=== PATIENT | female | born 1955 | race Caucasian/White ===

== ENCOUNTER → 2018-04-07 11:47 | Outpatient (CLI) | payer BC, SELFPAY ==
[2018-04-07 11:30] VITALS: BMI 38.9
--- NOTE | 2018-04-07 11:51 | RAD_ITS ---
STUDY: X-RAY CHEST REASON FOR EXAM: Female, 62 years old. Worsening shortness of breath TECHNIQUE: PA and lateral views of the chest. COMPARISON: None. FINDINGS: The lungs are clear and expanded. There is no demonstrated pleural abnormality. Normal size heart. Normal mediastinum and bev. Normal visualized pulmonary arteries. Normal visualized aortic arch and descending thoracic aorta. There are diffuse degenerative changes of the visualized thoracic spine. Normal visualized ribs, clavicles, and shoulders. There is no demonstrated abnormality of the visualized soft tissue structures of the upper abdomen. RAD/Chest PA and Lateral IMPRESSION: No acute pulmonary process Electronically Signed: Shalom Gottlieb MD at 12:22 EST , Service support ,
== END ==
PROVIDERS: Referring Provider Physician Assistant; Visit Provider Physician Assistant
DX: R05 Cough (principal); R06.09 Other forms of dyspnea
CPT/HCPCS: 71046

== ENCOUNTER 2019-10-02 17:14 | Inpatient (IN) | payer BC, MEDICARE, SELFPAY ==
[2018-04-07 11:30] VITALS: BMI 38.9
[2019-10-02] VITALS (13 sets, daily range): BP systolic 155–211; BP diastolic 80–125; PULSE 93–114; RESP 19–30; TEMP 36.4–37.6; O2SAT 60–97; BMI 44.0; BMI 43.9
--- NOTE | 2019-10-02 17:24 | EKG12_ITS ---
Test Reason : AM EKG Blood Pressure : / mmHG Vent. Rate : 069 BPM Atrial Rate : 069 BPM P-R Int : 160 ms QRS Dur : 094 ms QT Int : 454 ms P-R-T Axes : 085 025 046 degrees QTc Int : 486 ms Normal sinus rhythm Nonspecific T wave abnormality Prolonged QT Abnormal ECG When compared with ECG of 17-FEB-2001 09:02, Premature ventricular complexes are no longer Present Confirmed by LEXIE TORRES, ANA ([id number]), market editor AMEE ARGUELLO ([id number]) on 10/08/2019 3:49:45 PM Referred By: AMY Confirmed By:ANA OWEN MD
[2019-10-02 17:49] LABS: Absolute Lymphocyte Count 0.95 X10^3/uL (0.83-4.51); Absolute Neutrophil Count 6.7 X10^3/uL (2.0-7.7); Basophil# 0.05 X10^3/uL; Basophil% 0.6 % (0-1); Eosinophil# 0.06 X10^3/uL; Eosinophils% 0.7 % (0-5); Hematocrit 48.1 % (37-47); Hemoglobin 14.4 g/dL (12.0-15.0); Lymphocyte # 0.95 X10^3/ul (4.0); Lymphocyte % 11.1 % (19-41); Mean Corp Hgb Conc 29.9 g/dL (32-36); Mean Corpuscular Hgb 28.3 pg (27.0-32.0); Mean Corpuscular Volume 94.7 fL (81-99); Mean Platelet Vol. 11.2 fl (6.2-12.0); Monocyte# 0.74 X10^3/uL; Monocyte% 8.7 % (0-10); NRBC Flagged by Analyzer 0 % (0-5); Neutrophil # 6.72 X10^3/uL (2.7-7.7); Neutrophil % 78.7 % (47-70); Platelet Count 228 K/mm3 (150-450); RBC Distribution Width CV 16.2 % (11.6-14.6); RBC Distribution Width SD 55.7 fl (35.1-43.9); Red Blood Count 5.08 M/mm3 (4.2-5.4); White Blood Count 8.5 K/mm3 (4.4-11.0)
[2019-10-02 17:54] LABS: International Normalized Ratio 1.2; Prothrombin Time (Protime)PT. 14.4 SECONDS (11.7-14.9)
[2019-10-02 17:55] LABS: Partial Thromboplast Time 27.2 Seconds (24.1-36.2)
[2019-10-02] MEDS: Ipratropium/Albuterol Sulfate 3 ML AMPUL.NEB INHALATION (17:55)
[2019-10-02] MEDS: Albuterol 2.5 MG/3 ML VIAL.NEB. INHALATION ×3 (17:55→21:45)
[2019-10-02 18:00] LABS: ALB/GLOB Ratio 0.8 RATIO (0.9-2.4); AST(SGOT) 16 U/L (15-37); Alanine Aminotransfer ALT/SGPT 49 U/L (13-56); Alkaline Phosphatase 33 U/L (45-117); Anion Gap 0 (5-15); BUN 16 mg/dL (7-18); BUN/Creat Ratio 16.9 RATIO (10-20); Calcium,Total 8.3 mg/dL (8.5-10.1); Chloride 110 mmol/L (98-107); Creatinine, Serum 0.95 mg/dL (0.55-1.02); EST Glomerular Filtration Rate 63 mL/min (>60); Est Glom Filt Rate - Afr Amer 76 mL/min (>60); Globulin 3.7 g/dL (2.2-4.2); Glucose 124 mg/dL (74-106); Potassium 4.4 mmol/L (3.5-5.1); Protein, Total 6.7 g/dL (6.4-8.2); Sodium Level 144 mmol/L (136-145)
[2019-10-02 18:05] LABS: Base Excess 10 mmol/L (-2 to +2); Blood Gas Specimen Type ART; FI02 6; O2 Delivery Device Cannula; PO2 81 mmHG (75-100); SITE R Radial; SO2 94 % (95-99); Total Carbon Dioxide 38 mmol/L; pCO2 71.5 mmHg (35-45); pH 7.31 (7.35-7.45)
--- NOTE | 2019-10-02 18:05 | ED.VIS.GEN ---
History of Present Illness Chief Complaint: Shortness of Breath Informant: Patient, Family Onset: Days Context: Sudden Onset Timing: Continuous Quality: Shortness of breath, cough, swelling lower extremities Location: Respiratory Current Severity: Severe Maximum Severity: Severe Worsened by: Nothing per patient Relieved by: Nothing Associated Symptoms: No fever, chills, or exposure to ill family or friends Narrative: Patient is a 64-year-old woman who has not seen a physician in 15+ years. She is a smoker of 2 packs/day since the age of 13. She had her purchased Primatene Mist for her breathing. She denies fever or chills. She does complain of nasal congestion. She does report cough that is productive. She does report wheezing. She has had pedal edema and orthopnea for the past 3 weeks. She denies GI symptoms. Prior similar symptoms: No Recent Illness/Hospitalization: No - Past Medical History (1) Bronchitis Status: Acute (2) Reactive airway disease Status: Acute Past Medical History - Allergies and Home Meds Allergies/Adverse Reactions: Allergies No Known Allergies Allergy (Verified 10/02/19 17:14) Primary Care Physician: Damon Portillo MD [Primary Care Provider] - Surgical History: noncontributory Lives: Alone Smoking Status: Heavy Smoker (>10/day) Alcohol: None Drugs: None Review of Systems General: Reports: Malaise. Denies: Chills, Fever, Subjective, Sweats Eyes: Denies: Visual changes - bilaterally, Blurred Vision - bilaterally ENT: Reports: - - No loss in taste or smell. Denies: Bilateral ear pain, Rhinorrhea, Sore throat Cardiovascular: Reports: Palpitations. Denies: Chest pain, Heart racing Respiratory: Reports: Dyspnea, Cough, Sputum, Dyspnea on exertion, Orthopnea. Denies: Paroxysmal nocturnal dyspnea Gastrointestinal: Denies: Abdominal pain, Nausea, Vomiting, Diarrhea Genitourinary: Denies: Dysuria, Hematuria, Frequency Musculoskeletal: Reports: Swelling. Denies: Myalgias, Arthralgias, Neck pain, Back pain, Extremity Pain, -, - Skin: Denies: Rash, Wounds Neurological: Reports: Weakness. Denies: Headache, Parasthesia, Numbness Endocrine: Denies: Polyuria, Polydipsia Hematologic: Denies: Easy bruising, Easy bleeding Allergy: Denies: Uticaria, Swelling of the mouth, Swelling of the tongue Physical Exam Vital Signs/Narrative: Vital Signs Temp Pulse Resp BP Pulse Ox 10/02/19 17:45 101 H 24 H 10/02/19 17:24 114 H 27 H 211/125 H 97 10/02/19 17:15 97.5 F L 111 H 30 H 211/125 H 60 Inital Vital Signs reviewed: Yes General: Well nourished, Well developed, Obese, Acute Distress Head: Normocephalic, Atraumatic Eyes: Perrl, EOMI. Negative for: Pale conjunctiva, Scleral icterus ENT: No rhinorrhea, TM's clear Neck: Supple, Nontender, No lymphadenopathy, No JVD Cardiovascular: Regular rhythm, No murmurs, Normal S1, Normal S2, Tachycardia Respiratory: Chest nontender, Wheezing, Diminished, Decreased Air Movement Abdomen: Soft, Nontender, Nondistended, Normal bowel sounds Rectal: Deferred Back: Nontender, Normal Inspection. Negative for: CVA tenderness Extremities: Edema. Negative for: Tenderness Skin: Normal color, No rash, - - Stasis dermatitis lower extremity mild Neurological: Alert, Oriented x3, Cranial nerves II-XII grossly intact, Normal Strength, Normal Sensation Psychological: Normal affect Diagnostic/Tx/Re-eval Chest X-Ray - ED: 1 View, Read by ED Physician, - - There is an effusion on the right. There may be an infiltrate versus atelectasis right lower lobe. 10/02/19 18:26 Chest 1 View (Portable) [RAD] Stat Laboratory Results 10/02/19 10/02/19 10/02/19 17:25 17:25 17:25 WBC 8.5 RBC 5.08 Hgb 14.4 Hct 48.1 H MCV 94.7 MCH 28.3 MCHC 29.9 L RDW Std Deviation 55.7 H RDW Coeff of Divya 16.2 H Plt Count 228 MPV 11.2 Immature Gran % (Auto) 0.200 Neut % (Auto) 78.7 H Lymph % (Auto) 11.1 L [place] % (Auto) 8.7 Eos % (Auto) 0.7 Baso % (Auto) 0.6 Absolute Neuts (auto) 6.7 Absolute Lymphs (auto) 0.95 Nucleated RBC % 0 PT 14.4 INR 1.2 APTT 27.2 Specimen Type Sample Site pH Bicarbonate Actual Total CO2 Base Excess O2 Saturation O2 % ABG pCO2 ABG pO2 O2 Delivery Device Sodium 144 Potassium 4.4 Chloride 110 H Carbon Dioxide 34.0 H Anion Gap 0 L BUN 16 Creatinine 0.95 Estim Creat Clear Calc 50.30 Est GFR (MDRD) Af Amer 76 Est GFR (MDRD) Non-Af 63 BUN/Creatinine Ratio 16.9 Glucose 124 H Lactic Acid Calcium 8.3 L Total Bilirubin 0.40 AST 16 ALT 49 Alkaline Phosphatase 33 L Troponin I 0.015 B-Natriuretic Peptide Total Protein 6.7 Albumin 3.0 L Globulin 3.7 Albumin/Globulin Ratio 0.8 L Urine Color Urine Clarity Urine pH Ur Specific Dewey Urine Protein Urine Glucose (UA) Urine Ketones Urine Occult Blood Urine Nitrite Urine Bilirubin Urine Urobilinogen Ur Leukocyte Esterase Urine RBC Urine WBC Ur Squamous Epith Cells Urine Bacteria Urine Mucus 10/02/19 10/02/19 10/02/19 17:25 17:25 17:57 WBC RBC Hgb Hct MCV MCH MCHC RDW Std Deviation RDW Coeff of Divya Plt Count MPV Immature Gran % (Auto) Neut % (Auto) Lymph % (Auto) [place] % (Auto) Eos % (Auto) Baso % (Auto) Absolute Neuts (auto) Absolute Lymphs (auto) Nucleated RBC % PT INR APTT Specimen Type ART Sample Site R Radial pH 7.31 L Bicarbonate Actual 36.0 H Total CO2 38 Base Excess 10 H O2 Saturation 94 L O2 % 6 ABG pCO2 71.5 H* ABG pO2 81 O2 Delivery Device Cannula Sodium Potassium Chloride Carbon Dioxide Anion Gap BUN Creatinine Estim Creat Clear Calc Est GFR (MDRD) Af Amer Est GFR (MDRD) Non-Af BUN/Creatinine Ratio Glucose Lactic Acid 1.0 Calcium Total Bilirubin AST ALT Alkaline Phosphatase Troponin I B-Natriuretic Peptide 237.0 H Total Protein Albumin Globulin Albumin/Globulin Ratio Urine Color Urine Clarity Urine pH Ur Specific [place]wey Urine Protein Urine Glucose (UA) Urine Ketones Urine Occult Blood Urine Nitrite Urine Bilirubin Urine Urobilinogen Ur Leukocyte Esterase Urine RBC Urine WBC Ur Squamous Epith Cells Urine Bacteria Urine Mucus 10/02/19 18:05 WBC RBC Hgb Hct MCV MCH MCHC RDW Std Deviation RDW Coeff of Divya Plt Count MPV Immature Gran % (Auto) Neut % (Auto) Lymph % (Auto) [place] % (Auto) Eos % (Auto) Baso % (Auto) Absolute Neuts (auto) Absolute Lymphs (auto) Nucleated RBC % PT INR APTT Specimen Type Sample Site pH Bicarbonate Actual Total CO2 Base Excess O2 Saturation O2 % ABG pCO2 ABG pO2 O2 Delivery Device Sodium Potassium Chloride Carbon Dioxide Anion Gap BUN Creatinine Estim Creat Clear Calc Est GFR (MDRD) Af Amer Est GFR (MDRD) Non-Af BUN/Creatinine Ratio Glucose Lactic Acid Calcium Total Bilirubin AST ALT Alkaline Phosphatase Troponin I B-Natriuretic Peptide Total Protein Albumin Globulin Albumin/Globulin Ratio Urine Color Yellow Urine Clarity Sl. Cloudy Urine pH 6.0 Ur Specific Dewey 1.025 Urine Protein 100 H Urine Glucose (UA) Normal Urine Ketones 5 H Urine Occult Blood 25 H Urine Nitrite Negative Urine Bilirubin Negative Urine Urobilinogen 8 H Ur Leukocyte Esterase 25 H Urine RBC 0-5 SEEN Urine WBC 0-5 SEEN Ur Squamous Epith Cells 0-5 SEEN Urine Bacteria RARE Urine Mucus 0 SEEN - Medical Decision Making Asked to see the patient immediately because pulse ox of 50%. Patient is in respiratory distress. She is tachycardic, tachypneic and hypoxic. The differential diagnosis includes pneumonia, undiagnosed untreated COPD, undiagnosed and untreated obstructive sleep apnea, COVID-19 infection, upper respiratory infection with hyperactive airway disease. Doubt that she has pulmonary embolus. ABG was obtained to assess acid-base status. Troponin was obtained to rule out for cardiac ischemia. BNP was ordered to confirm suspicion for right heart failure and possibly left heart failure. Chest x-ray was obtained as well as appropriate other blood work. She was treated with Solu-Medrol 125 mg IV push, DuoNeb and albuterol. Blood gas reveals acidosis with acute on chronic CO2 retention and increased a anion gap. Patient reports improvement after DuoNeb and albuterol treatment. She was informed that she will require admission and probable placement in PCU stepdown versus ICU. - Critical Care Time Critical care time (excluding procedures): 30-74 minutes - Care time 36 minutes this includes taking history, physical, speaking with family members, treatment, interpretation of diagnostic tests, discussion with consultants and admission., Discussing w/Patient &/or Family/Aquatic Centre Manager, Discussing w/Consultants, Arranging Admission or Transfer ED Disposition - Plan for ED Patient: Disposition: Acute Care Hospital [facility] Diagnosis: Acute respiratory failure with hypoxia and hypercapnia, Asthma exacerbation in COPD, Acute bronchospasm, Recurrent right pleural effusion, Right heart failure, Hypertensive urgency Referrals: Damon Portillo MD [Primary Care Provider] -
[2019-10-02 18:15] LABS: Mucous, Urine 0 SEEN /hpf (<or=2+)
[2019-10-02] MEDS: MethylPREDNISolone 125 MG/2 ML Vial IV (18:15)
[2019-10-02 18:20] LABS: Color, Urine Yellow (Yellow); Glucose, Dipstick Normal (Normal); Ketone-Dipstick 5 mg/dl (Negative); Leukocyte Esterase-Dipstick 25 /ul (Negative); Nitrite-Dipstick Negative (Negative); Occult Blood-Urine 25 /ul (Negative); Protein-Dipstick 100 mg/dl (Negative); Specific Gravity, Urine 1.025 (1.002-1.030); Urine Bilirubin Dipstick Negative (Negative); Urine Clarity Sl. Cloudy (Clear); Urine Urobilinogen 8 mg/dl (Normal)
--- NOTE | 2019-10-02 18:26 | RAD_ITS ---
STUDY: X-RAY CHEST REASON FOR EXAM: Female, 64 years old. PT C/O INCREASING SOB WITH SYMPTOMS STARTING OVER A YEAR AND PROGRESSING, COUGH TECHNIQUE: AP portable COMPARISON: None. FINDINGS: Diffuse bilateral perihilar interstitial thickening.. Small right pleural effusion and basal consolidation. The heart is enlarged.. Normal mediastinum and bev. Normal visualized pulmonary arteries. Normal visualized aortic arch and descending thoracic aorta. Normal visualized thoracic spine. Normal visualized ribs, clavicles, and shoulders. There is no demonstrated abnormality of the visualized soft tissue structures of the upper abdomen. RAD/Chest 1 View (Portable) IMPRESSION: Probable mild pulmonary interstitial edema with small right pleural effusion and right lower lobe atelectasis. Cannot exclude inflammatory disease Electronically Signed: Smith Young MD at 18:54 EDT , Service support ,
[2019-10-02 18:35] LABS: Bacteria RARE /hpf (None Seen); Red Blood Cells-Urine 0-5 SEEN /hpf (0-5); Squamous Epithelial Cells - UA 0-5 SEEN /hpf (5-10); White Blood Cells 0-5 SEEN /hpf (0-5)
--- NOTE | 2019-10-02 18:55 | PCM.HP.STD ---
Problem List (1) Acute respiratory failure with hypoxia and hypercapnia Status: Acute (2) Acute exacerbation of CHF (congestive heart failure) Status: Acute Qualifiers: Heart failure type: unspecified Qualified Code(s): I50.9 - Heart failure, unspecified (3) Hypertensive urgency Status: Acute (4) COPD with acute exacerbation Status: Acute (5) Pneumonia Status: Acute Qualifiers: Pneumonia type: due to unspecified organism Laterality: unspecified laterality Lung location: unspecified part of lung Qualified Code(s): J18.9 - Pneumonia, unspecified organism (6) Tobacco use Status: Chronic (7) Morbid obesity Status: Chronic History of Present Illness Date of Admission: 10/02/19 Chief Complaint: Dyspnea, Cough, Orthopea, BL LE edema, weight gain The patient is a 64 y/o F w/ PMHx: Morbidly obese, Hx prior collapsed lung, Heavy tobacco use with suspected COPD who presents to the [facility] ED on 10/02/19 with no evaluation per physician in nearly 15 years with history of ongoing worsening dyspnea over the last year, more so with exertion with occasional wheezing however over the last several weeks she is progressively been worsening per her report with significant dyspnea this week over the last 2 to 3 days with nonproductive cough, wheezing, increased bilateral lower extremity edema, subjective weight gain and orthopnea brought in by family secondary to her worsening status. Work-up in the ED included T 98.7, heart rate 114, BP initially 211/125, respiratory rate 27, 97% on 6 L nasal cannula, CBC with WBC 8.5, hemoglobin 14.4, platelet 228 without market shift, unremarkable coags, ABG with pH 7.31, bicarb 36, O2 saturation 94, PCO2 71.5, PO2 81, CMP with chloride 110,, oxide 34, glucose 124, lactic acid 1.0, alk phos 33, troponin 0 0.015, BNP 237, urinalysis with elevated specific gravity 1.025, protein 100, ketones 5, occult blood 25, urobilinogen 8, leukocyte esterase 25, no obvious evidence UTI, pending COVID, blood culture x2 pending per ED, urine culture pending per ED, chest x-ray with probable mild pulmonary interstitial edema with small right pleural effusion and right lower lobe atelectasis. In the ED patient administered Solu-Medrol, Lasix 40 mg IV x1, Rocephin, azithromycin, DuoNeb and albuterol therapies as well as normal saline. Past Medical History Past Medical History (Chronic Problems): Chronic Problems (Last Updated 04/07/18 @ 11:32 by Jaylin Montes) Asthma exacerbation in COPD (Chronic) Tobacco use (Chronic) Morbid obesity (Chronic) Medical History: Medical History (Last Updated 04/07/18 @ 11:32 by Jaylin Montes) Collapsed lung J98.19 Fatigue R53.83 Shortness of breath R06.02 Allergies No Known Allergies Allergy (Verified 10/02/19 17:14) Home Medications: Ambulatory Orders Medication Instructions Recorded albuterol sulfate 2.5 mg CONTINUOUS NEBULIZATION 04/07/18 ONCE #1 ml albuterol sulfate 90 mcg/actuation 1 puff INHALATION Q6H PRN #8 g 04/07/18 aerosol inhaler azithromycin 250 mg tablet 250 mg PO QDAY #6 tab 04/07/18 methylprednisolone 4 mg tablets in See Rx Instructions PO PER PKG DIR 04/07/18 a dose pack #21 tab Surgical History: Surgical History (Last Reviewed 04/07/18 @ 11:32 by Jaylin Montes) History of hysterectomy Z90.710 Surgical History: - - Hysterectomy, intervention for right collapsed lung with chest tube, tonsillectomy. Psychiatric History: No pertinent psych hx MEDIA EXECUTIVE History: No pertinent MEDIA EXECUTIVE history Lives: Spouse/ Significant Other - Patient lives with her who is a yard truck driver and frequently gone. Smoking Status: Heavy Smoker (>10/day) - Patient with ongoing 2 pack/day cigarette tobacco usage initially starting when she was 13 although her smoking amount has steadily increased over the years she notes. Tobacco Use: Cigarettes Alcohol: None Drugs: None - *Family History Maternal History Items: Diabetes Paternal History Items: Diabetes, Hypertension Review of Systems Constitutional: Reports: Malaise, Weakness, Weight Change, Fatigue. Denies: Anorexia, Chills, Fever HEENT: Denies: Head Aches, Nasal Congestion, Sinus Congestion, Sinus Drainage, Visual Changes Cardiovascular: Reports: Edema, Orthopnea. Denies: Chest Pain, Chest Pressure, Chest Tightness, Heaviness, Light Headedness, Palpitations, Syncope Respiratory: Reports: Cough, Shortness of Breath, Shortness of breath at rest, Shortness of breath upon exertion, Wheezing. Denies: Sputum production Gastrointestinal: Denies: Abdominal Pain, Nausea, Vomiting Genitourinary: Denies: Dysuria Musculoskeletal: Reports: Joint Pain. Denies: Joint Tenderness Skin: Denies: Rash, Wounds Neurological: Denies: Numbness, Tingling, Focal weakness Psychiatric: Denies: Anxiety, Depression, Homicidal Ideations, Suicidal Ideations Hematologic/ Lymphatic: Denies: Easy Bruising, Easy Bleeding VTE Information - Inpt Only VTE Present on Admission: No VTE Mechan Device Prophylaxis: SCD's VTE Pharm Prophylaxis ordered?: Yes Patient Problems: Active and Suspected Problems (Last Updated 04/07/18 @ 11:32 by Jaylin Montes) Acute respiratory failure with hypoxia and hypercapnia (Acute) Acute bronchospasm (Acute) Recurrent right pleural effusion (Acute) Right heart failure (Acute) Hypertensive urgency (Acute) Acute exacerbation of CHF (congestive heart failure) (Acute) COPD with acute exacerbation (Acute) Pneumonia (Acute) Subjective: Seated upright in the ED bed, fatigued appearance, still increased work of breathing and accessory muscle usage, remains tachycardic and tachypneic but does state she feels improved since initial ED presentation following aerosols. Objective: Physical Examination: General: awake, alert, oriented x 3 and cooperative, seated upright in the ED bed, fatigued appearance, ongoing increased respiratory rate and some accessory muscle usage, tachycardic, tachypneic. Skin: normal color, turgor, no icterus, cyanosis except noted bilateral lower extremity stasis skin changes. HEENT: AT/NC, EOMI, PERRLA, mildly dry MM, no obvious carotid bruits or JVD noted; however, thickened neck with habitus makes examination difficult. Lungs: Diminished breath sounds throughout, greater bases, minimal rales detected at bases, and expiratory wheezing throughout, increased work of breathing, accessory muscle usage noted, tachypnea. Heart: Tachycardic with regular rhythm; no gallop, rub audible. Abdomen: soft, morbidly obese, NTTP, ND, normal BS, no HSM. Extremities: no cyanosis, clubbing, significant pedal to proximal holbrook 2+ pitting edema. Neurological: patient awake, alert, oriented x 3; cognitive function intact; pupils equally reactive to light and accomodation; cranial nerves II-XII grossly normal, moving all 4 extremities, no focal deficits, strength severely global decrease secondary to acute presentation. Psychiatric: affect appears fatigued, respiratory distress as noted, no acute evidence of depressive or anxiety feelings. - Physical Exam Vitals/I&O's: Vital Signs Temp Pulse Resp BP Pulse Ox 98.7 F 103 H 21 H 200/105 H 94 10/02/19 18:11 10/02/19 18:11 10/02/19 18:11 10/02/19 18:11 10/02/19 18:11 Oxygen Flow Rate (L/min) 5 Oxygen Delivery Method Nasal Cannula Weight: 256 lb 9.889 oz Body Mass Index (BMI) 44.0 Laboratory Results 10/02/19 15:50: COVID-19 ([facility]) Pending 10/02/19 17:25: WBC 8.5, RBC 5.08, Hgb 14.4, Hct 48.1 H, MCV 94.7, MCH 28.3, MCHC 29.9 L, RDW Std Deviation 55.7 H, RDW Coeff of Dviya 16.2 H, Plt Count 228, MPV 11.2, Immature Gran % (Auto) 0.200, Neut % (Auto) 78.7 H, Lymph % (Auto) 11.1 L, [place] % (Auto) 8.7, Eos % (Auto) 0.7, Baso % (Auto) 0.6, Absolute Neuts (auto) 6.7, Absolute Lymphs (auto) 0.95, Nucleated RBC % 0 10/02/19 17:25: PT 14.4, INR 1.2, APTT 27.2 10/02/19 17:25: Sodium 144, Potassium 4.4, Chloride 110 H, Carbon Dioxide 34.0 H, Anion Gap 0 L, BUN 16, Creatinine 0.95, Estim Creat Clear Calc 50.30, Est GFR (MDRD) Af Amer 76, Est GFR (MDRD) Non-Af 63, BUN/Creatinine Ratio 16.9, Glucose 124 H, Calcium 8.3 L, Total Bilirubin 0.40, AST 16, ALT 49, Alkaline Phosphatase 33 L, Troponin I 0.015, Total Protein 6.7, Albumin 3.0 L, Globulin 3.7, Albumin/Globulin Ratio 0.8 L 10/02/19 17:25: Lactic Acid 1.0 10/02/19 17:25: B-Natriuretic Peptide 237.0 H 10/02/19 17:57: Specimen Type ART, Sample Site R Radial, pH 7.31 L, Bicarbonate Actual 36.0 H, Total CO2 38, Base Excess 10 H, O2 Saturation 94 L, O2 % 6, ABG pCO2 71.5 H*, ABG pO2 81, O2 Delivery Device Cannula 10/02/19 18:05: Urine Color Yellow, Urine Clarity Sl. Cloudy, Urine pH 6.0, Ur Specific [place] 1.025, Urine Protein 100 H, Urine Glucose (UA) Normal, Urine Ketones 5 H, Urine Occult Blood 25 H, Urine Nitrite Negative, Urine Bilirubin Negative, Urine Urobilinogen 8 H, Ur Leukocyte Esterase 25 H, Urine RBC 0-5 SEEN, Urine WBC 0-5 SEEN, Ur Squamous Epith Cells 0-5 SEEN, Urine Bacteria RARE, Urine Mucus 0 SEEN Current Medications Albuterol Sulfate (Ventolin Aerosols) 2.5 mg INHALATION Q2H [facility] Last Admin: 10/02/19 18:00 Dose: 2.5 mg Documented by: Sodium Chloride () 1,000 mls @ 150 mls/hr IV .[id number] [facility] Assessment/Plan All Active Problems (Last Updated 04/07/18 @ 11:32 by Jaylin Montes) Acute respiratory failure with hypoxia and hypercapnia (Acute) Acute bronchospasm (Acute) Recurrent right pleural effusion (Acute) Right heart failure (Acute) Hypertensive urgency (Acute) Acute exacerbation of CHF (congestive heart failure) (Acute) COPD with acute exacerbation (Acute) Pneumonia (Acute) Impacted cerumen, right ear (Acute) Reactive airway disease (Acute) Bronchitis (Acute) The patient is a 64 y/o F w/ PMHx: Morbidly obese, Hx prior collapsed lung, Heavy tobacco use with suspected COPD who presents to the [facility] ED on 10/02/19 w/ hx worsening dyspnea over the last year, more pronounced over the last several weeks and specifically notable over the last 2 to 3 days with nonproductive cough, wheezing, increased bilateral lower extremity edema, subjective weight gain and orthopnea. 1. Acute Hypoxic and Hypercarbic Respiratory Failure, Multifactorial, Secondary to Acute Likely on Chronic COPD exacerbation, possible CAP versus Atelectasis and Acute CHF, New onset, Unclear Type: Will admit to the ICU, initiate BiPAP therapy given still ongoing increased work of breathing, tachycardia, tachypnea with repeat ABG PRN and within 1 to 2 hours of initiation, continue ATC duonebs, PRN albuterol, maintained on IV Solu-Medrol, maintain on IV Rocephin and Azithromycin, continue IV Lasix diuresis, continue Gutiérrez catheter placement, initiate medical therapy with aspirin, high-dose statin, lisinopril and judicious usage of beta-estefany therapy given underlying likely COPD, trend cardiac enzymes, repeat EKGs, obtain echocardiogram, awaiting COVID testing therefore at this time will intend on precautions and will obtain Didmer, procalcitonin, CRP, CPK, Ferritin, LDH, maintain, HOB, IS parameters w/ pending sputum cultures and urine antigens plus respiratory viral panel. Bld cx x 2 obtained in the ED. snug Nelson wrapped bilateral lower extremities with elevation. ICU physician consulted, pending. 2. Hypertensive urgency: Likely contributing to acute presentation, initiated medical therapy as noted with lisinopril and judicious beta-estefany usage given COPD with acute exacerbation, IV diuresis with Lasix as noted, PRN IV hydralazine concurrently. 3. Morbid Obesity: Weight loss and lifestyle changes encouraged, nutrition consulted. 4. Tobacco Abuse: Encouraged cessation, inpatient consultation per RT, NR if desired. 5. Suspected DONNIE: We will need outpatient evaluation for DONNIE and given #1 updated PFTs and walking oximeter. 6. DVT prophylaxis: SCDs, Lovenox. 7. CODE status: Patient does not have healthcare power of deputy county attorney nor living will in place. Patient's daughter is present and her is living. She notes that decision makers would be her and her daughter. Discussed CODE status at length including difference between FULL code, DNR-CCA and DNR-CC status. Following discussions about the differences in these status, requested initially allowance of cardiac interventions but no intubation but following further discussions amenable to full CODE STATUS with transition if not improving clinically. Advanced Care Planning Face to Face Time: 16 minutes. Inpatient E&M: 18385 Init Hosp L3 Procedures: 73705 Advncd Care Plan 30 Min
[2019-10-02] MEDS: Furosemide 40 MG/4 ML Vial IV (19:20)
[2019-10-02 19:37] LABS: Probe Check PASS; Specimen Processing Control PASS
--- NOTE | 2019-10-02 19:49 | ED.RN ---
Catheter flushed with 40 mL of NS per Dr. Italia Ozuna. 40 mL returned, catheter is patent and draining yellow urine.
--- NOTE | 2019-10-02 22:49 | ECHOCS_ITS ---
Reason For Study: Arrhythmia Procedure This was a 2D Doppler, Color Flow transthoracic echocardiogram. Techncially difficult study due to patients body habitus. Contrast injection performed. Exam performed portable in ICU/CCU. Left Ventricle Normal LV size. The estimated ejection fraction is 55 %. No evidence for diastolic dysfunction. No regional wall motion abnormalities noted. Right Ventricle Normal RV size. Normal systolic function. Atria Normal left atrium. Normal right atrium. No doppler evidence for ASD. Mitral Valve There is no mitral valve stenosis. No mitral valve insufficiency. Tricuspid Valve There is no tricuspid stenosis. Unable to estimate RV systolic pressure due to inadequate jet, pulmonary artery pressure probably normal. No tricuspid valve insufficiency. Aortic Valve Trisinus/trileaflet aortic valve. There is no aortic stenosis. No aortic valve insufficiency. Pulmonic Valve There is no pulmonic valvular stenosis. No pulmonic valve insufficiency. Great Vessels Normal aortic root. Pericardium/Pleural No pericardial effusion. Medication Diluted definity 3ml given slow IV push to enhance endocardial definition. MMode/2D Measurements & Calculations LVIDd: 5.4 cm IVSd: 1.5 cm LAV(MOD-bp): 49.1 ml LVIDs: 3.7 cm LVPWd: 1.4 cm RVDd: 3.3 cm FS: 31.6 % LAV(MOD-bp) Indexed: 22.8 ml/m2 LAV(MOD-sp2): 46.6 ml LAV(MOD-sp4): 47.2 ml LA A4 area: 18.8 cm2 RA A4 area: 15.7 cm2 Time Measurements MV dec time: 0.23 sec Doppler Measurements & Calculations MV E max phani: 106.3 cm/sec Lat Peak E' Phani: 4.8 cm/sec Med Peak E' Phani: 4.8 cm/sec MV A max phani: 138.5 cm/sec E/E' lat: 22.0 E/E' med: 22.0 MV E/A: 0.77 MV V2 max: 158.9 cm/sec MV P1/2t max phani: 137.7 cm/sec Ao V2 max: 187.5 cm/sec MV max P.1 mmHg MV P1/2t: 93.9 msec Ao max P.1 mmHg MV V2 mean: 93.4 cm/sec Ao V2 mean: 118.3 cm/sec MV mean P.0 mmHg MV dec slope: 429.7 cm/sec2 Ao mean P.4 mmHg MV V2 VTI: 39.3 cm MVA(P1/2t): 2.3 cm2 Ao V2 VTI: 35.7 cm LV V1 max: 148.7 cm/sec PA V2 max: 100.2 cm/sec TR max phani: 239.8 cm/sec LV V1 max P.8 mmHg TR max P.0 mmHg LV V1 mean P.7 mmHg LV V1 mean: 100.9 cm/sec LV V1 VTI: 31.5 cm Interpretation Summary The estimated ejection fraction is 55 %. No evidence for diastolic dysfunction. The study was technically difficult. Contrast injection was performed. Ordering Physician: Italia Ozuna Referring Physician: Aaron Portillo MD Performed By: Babak Fournier RCS
[2019-10-02 23:36] LABS: D-Dimer Quantitative (DVT/PE) 1.01 FEU/ug/m (0.27-0.49)
[2019-10-02 23:43] LABS: Ferritin 22 ng/mL (8-252); LDH 192 U/L (84-246); Magnesium 2.1 mg/dL (1.6-2.6); T4 Free Direct 0.92 ng/dL (0.76-1.46); Thyroid Stim Hormone (TSH) 3.55 uIU/mL (0.358-3.74)
[2019-10-02] MEDS: Lisinopril 20 MG Tablet PO (23:43)
[2019-10-02] MEDS: Atorvastatin Calcium 80 MG Tablet PO (23:43)
[2019-10-02] MEDS: Carvedilol 12.5 MG Tablet PO (23:43)
[2019-10-02] MEDS: Famotidine 20 MG Tablet PO (23:43)
[2019-10-03] VITALS (32 sets, daily range): BP systolic 120–167; BP diastolic 54–99; PULSE 57–98; RESP 12–26; TEMP 36.7–37; O2SAT 89–95
[2019-10-03 00:41] LABS: M R Staph aureus DNA By PCR Negative (Negative); Probe Check PASS; Specimen Processing Control PASS
[2019-10-03 00:52] LABS: Procalcitonin 0.08 ng/mL (0.00-0.09)
--- NOTE | 2019-10-03 01:10 | CT_ITS ---
STUDY: CTA CHEST REASON FOR EXAM: Female, 64 years old. ELEV DDIMER/HYPOXIA. COPD with exacerbation. Hx of rt lung collapse with chest tube 2019. current smoker RADIATION DOSAGE (If Supplied By Facility): CTDIvol = ( 13.68 ) mGy, DLP = ( 484.08 ) mGycm TECHNIQUE: The examination was performed with the intravenous administration of Isovue 300 100ml. Post-processing of the angiographic images was performed, with multiplanar reformation and 3D reconstruction. Individualized dose optimization techniques were used for this CT. COMPARISON: None. FINDINGS: Normal enhancement of the main pulmonary artery and right and left pulmonary arteries. Normal enhancement of the bilateral peripheral pulmonary arteries. There is no demonstrated pulmonary embolism. Normal thoracic aorta and visualized great vessels. There is no demonstrated aortic dissection. Normal heart and pericardium. Normal mediastinum. Normal hilar regions. Normal visualized trachea and bronchi. There is compressive atelectasis in the right lung lower lobe. There is dependent atelectasis in the left lung lower lobe. Normal pulmonary parenchyma. There are small bilateral pleural effusions more prominent on the right side. Normal chest wall structures. There are degenerative changes of thoracic spine. There are 2 low-attenuation lesion in the liver the largest measures 1.5 cm most likely represent cysts. CT/CTA Chest W/WO Contrast IMPRESSION: No demonstrated pulmonary embolism or arterial dissection. Small bilateral pleural effusions larger on the right side. Electronically Signed: Jose Muñiz, at 3:19 EDT Tel , Service support ,
[2019-10-03] MEDS: Ipratropium/Albuterol Sulfate 3 ML AMPUL.NEB INHALATION ×5 (02:15→18:47)
[2019-10-03 03:36] LABS: Allen Test Positive; Base Excess 10 mmol/L (-2 to +2); Bicarbonate 35.5 mmol/L (22-26); Blood Gas Specimen Type ART; FI02 45; O2 Delivery Device BiPAP; PO2 61 mmHG (75-100); SITE R Radial; SO2 88 % (95-99); Total Carbon Dioxide 38 mmol/L; pCO2 65.8 mmHg (35-45); pH 7.34 (7.35-7.45)
[2019-10-03 04:07] LABS: EPAP 8; IPAP 14; Time Given 328
[2019-10-03 04:39] LABS: Absolute Lymphocyte Count 0.35 X10^3/uL (0.83-4.51); Absolute Neutrophil Count 7.2 X10^3/uL (2.0-7.7); Basophil# 0.01 X10^3/uL; Basophil% 0.1 % (0-1); Hematocrit 45.9 % (37-47); Hemoglobin 13.9 g/dL (12.0-15.0); Lymphocyte # 0.35 X10^3/ul (4.0); Lymphocyte % 4.6 % (19-41); Mean Corp Hgb Conc 30.3 g/dL (32-36); Mean Corpuscular Hgb 28.7 pg (27.0-32.0); Mean Corpuscular Volume 94.6 fL (81-99); Mean Platelet Vol. 10.5 fl (6.2-12.0); Monocyte# 0.12 X10^3/uL; Monocyte% 1.6 % (0-10); NRBC Flagged by Analyzer 0 % (0-5); Neutrophil # 7.17 X10^3/uL (2.7-7.7); Neutrophil % 93.3 % (47-70); POSITIVE DIFFERENTIAL YES; Platelet Count 185 K/mm3 (150-450); RBC Distribution Width SD 55.4 fl (35.1-43.9); Red Blood Count 4.85 M/mm3 (4.2-5.4); White Blood Count 7.7 K/mm3 (4.4-11.0)
[2019-10-03 04:49] LABS: Differential Indicated SCAN CRITERIA MET
[2019-10-03 05:03] LABS: Differential Comment SCANNED
[2019-10-03 05:05] LABS: ALB/GLOB Ratio 0.8 RATIO (0.9-2.4); AST(SGOT) 13 U/L (15-37); Alanine Aminotransfer ALT/SGPT 43 U/L (13-56); Albumin, Serum 2.8 g/dL (3.2-5.0); Alkaline Phosphatase 30 U/L (45-117); Anion Gap 1 (5-15); BUN 14 mg/dL (7-18); BUN/Creat Ratio 16.5 RATIO (10-20); Calcium,Total 8.1 mg/dL (8.5-10.1); Chloride 103 mmol/L (98-107); Cholesterol 141 mg/dL (200); Creatinine, Serum 0.85 mg/dL (0.55-1.02); EST Glomerular Filtration Rate 71 mL/min (>60); Est Glom Filt Rate - Afr Amer 86 mL/min (>60); Estimated Creatinine Clearance 53.86 ml/min; Globulin 3.6 g/dL (2.2-4.2); Glucose 148 mg/dL (74-106); High Density Lipoprotein 44 mg/dL; Potassium 4.2 mmol/L (3.5-5.1); Protein, Total 6.4 g/dL (6.4-8.2); Sodium Level 139 mmol/L (136-145); Triglycerides 55 mg/dL; Very Low Density Lipoprotein 11 mg/dL (5-40)
--- NOTE | 2019-10-03 05:50 | NURSING ---
pt requesting bipap off, placed on 6L NC with O2 sats 86%, pt refusing bipap, educated on risks and consequences, discussed pt wishes and pt stated I do not want a breathing tube, my daughter wants me to but I do not and I am not wearing that bipap now you can't make me. Pt agreed to high-flow NC, placed on 10L high-flow, O2 sats recovered to low 90's.
[2019-10-03] MEDS: 0.9% Saline Lock 10 ML Syringe IV ×5 (05:53→22:43)
--- NOTE | 2019-10-03 05:55 | EKG12_ITS ---
Test Reason : SOB Blood Pressure : / mmHG Vent. Rate : 108 BPM Atrial Rate : 108 BPM P-R Int : 152 ms QRS Dur : 074 ms QT Int : 332 ms P-R-T Axes : 075 019 054 degrees QTc Int : 444 ms Sinus tachycardia Septal infarct , age undetermined Abnormal ECG Confirmed by ALEC TORRES, KAREY ([id number]), commercial production editor JAE SIMEON ([id number]) on 10/06/2019 8:40:30 AM Referred By: MARCELLO Confirmed By:KAREY MICHAEL MD
--- NOTE | 2019-10-03 06:51 | PCM.CON.CC ---
Reason for Consult Date of Consultation: 10/03/19 Reason for Consultation: Acute respiratory failure, COPD exacerbation, pneumonia, CHF History of Present Illness: The patient is a 64-year-old female, with a history as outlined below, who presented to the emergency department on October 01 with complaints of shortness of breath and lower extremity edema. The patient has little to no outpatient medical follow-up and has not seen a physician for greater than 15 years. However, she does report that she recently got set up for a new appointment with Dr. Shine in October. She is a current everyday smoker of 2 packs/day since her teenage years. She does not carry an established diagnosis of COPD. She has never been seen by a ent physician, nor has she ever had pulmonary function studies completed. She does not regularly utilize supplemental oxygen at her baseline. She does not utilize any inhalers at her baseline. She does report that her shortness of breath has been present now for years, but has worsened with time. She denies the presence of a cough or chest tightness. On presentation to the emergency department, the patient was noted to be afebrile, tachycardic and tachypneic. She had a presenting blood pressure documented to be 211/125 mmHg. She was profoundly hypoxemic. Laboratory evaluation revealed no evidence of a leukocytosis. Coagulation profile was within normal limits. D-dimer was mildly elevated to 1.01. Initial arterial blood gas on nasal cannula supplemental oxygen revealed a pH of 7.31 with a corresponding PCO2 of 71 and PO2 of 81. Chemistry profile was notable for an elevated bicarbonate 34. BNP was elevated to 237. Troponin was negative. Urine analysis was largely unrevealing. Coronavirus PCR was negative. MRSA screen was negative. CTA chest was obtained which showed no evidence for PE. There was evidence of bilateral pleural effusions, right greater than left with associated compressive atelectasis. The patient was subsequently admitted to the medical intensive care unit where she was placed on BiPAP therapy. Past Medical History Past Medical History (Chronic Problems): Chronic Problems (Last Updated 04/07/18 @ 11:32 by Jaylin Montes) Asthma exacerbation in COPD (Chronic) Tobacco use (Chronic) Morbid obesity (Chronic) Medical History: Medical History (Last Updated 04/07/18 @ 11:32 by Jaylin Montes) Collapsed lung J98.19 Fatigue R53.83 Shortness of breath R06.02 Allergies No Known Allergies Allergy (Verified 10/02/19 17:14) Home Medications: Ambulatory Orders Medication Instructions Recorded NK 10/02/19 Surgical History: Surgical History (Last Reviewed 04/07/18 @ 11:32 by Jaylin Montes) History of hysterectomy Z90.710 Surgical History: - - Hysterectomy, intervention for right collapsed lung with chest tube, tonsillectomy. Psychiatric History: No pertinent psych hx LICENSED ARCHITECT History: No pertinent LICENSED ARCHITECT history Lives: Spouse/ Significant Other - Patient lives with her who is a highway truck driver and frequently gone. Smoking Status: Heavy Smoker (>10/day) Tobacco Use: Cigarettes Alcohol: None Drugs: None - *Family History Maternal History Items: Diabetes Paternal History Items: Diabetes, Hypertension Review of Systems Constitutional: Denies: Chills, Fever, Night Sweats Eyes: Denies: Blurred vision, Double vision HEENT: Denies: Head Aches, Sinus Congestion, Sinus Drainage Cardiovascular: Reports: Edema. Denies: Chest Pain, Palpitations Respiratory: Reports: Shortness of Breath. Denies: Cough Gastrointestinal: Denies: Abdominal Pain, Nausea, Vomiting Genitourinary: Denies: Dysuria Musculoskeletal: Denies: Joint Pain, Joint Tenderness Skin: Denies: Rash, Wounds Neurological: Denies: Numbness, Tingling, Focal weakness Psychiatric: Denies: Anxiety, Depression, Homicidal Ideations, Suicidal Ideations Hematologic/ Lymphatic: Denies: Easy Bruising, Easy Bleeding Patient Problems: Active and Suspected Problems (Last Updated 04/07/18 @ 11:32 by Jaylin Montes) Acute respiratory failure with hypoxia and hypercapnia (Acute) Acute bronchospasm (Acute) Recurrent right pleural effusion (Acute) Right heart failure (Acute) Hypertensive urgency (Acute) Acute exacerbation of CHF (congestive heart failure) (Acute) COPD with acute exacerbation (Acute) Pneumonia (Acute) Objective: The patient's most recent lab work, culture data and imaging studies have all been personally reviewed. Respiratory viral panel was negative. Strep and urine Legionella antigens were negative. Blood and urine cultures are pending. - Physical Exam Vitals/I&O's: Vital Signs Temp Pulse Resp BP Pulse Ox 98.6 F 62 17 138/79 H 91 10/03/19 04:00 10/03/19 06:00 10/03/19 06:00 10/03/19 06:00 10/03/19 06:00 Oxygen Flow Rate (L/min) 10 Oxygen Delivery Method Nasal Cannula Weight: 250 lb 10.649 oz Body Mass Index (BMI) 43.9 Intake and Output for Last 24 Hours 10/01/19 10/02/19 10/03/19 23:59 23:59 23:59 Intake Total 305 / 305 60 / 60 Output Total 100 / 100 500 / 500 Balance 205 / 205 -440 / -440 General: Alert, Cooperative, No apparent distress, - - Laying supine in bed. Morbidly obese. HEENT: Atraumatic, PERRLA, Normocephalic Oral: No Gingival or Mucosal Lesions/ Ulcerations Neck: Supple, No Nodes, Trachea Midline Lungs: - - Globally diminished air movement bilaterally with expiratory wheezes noted and prolonged expiratory phase. Cardiovascular: Regular rate, Regular Rhythm Abdomen: Bowel Sounds Present, Soft, Non Tender Extremities: No clubbing, No cyanosis, Edema Skin: No breakdown Musculoskeletal: No Tenderness to Palpation of Joints or Extremities, No Muscle Wasting Lymphatic: No Cervical, Supraclavicular, or Inguinal Adenopathy Neurological: Cranial nerves II-XII grossly intact, Neuro grossly intact Psych/Mental Status: Alert and oriented to time, place, person, mood and affect Labs (Last 48 Hours) 10/02/19 10/02/19 10/02/19 15:50 17:25 17:25 WBC 8.5 RBC 5.08 Hgb 14.4 Hct 48.1 H MCV 94.7 MCH 28.3 MCHC 29.9 L RDW Std Deviation 55.7 H RDW Coeff of Divya 16.2 H Plt Count 228 MPV 11.2 Immature Gran % (Auto) 0.200 Neut % (Auto) 78.7 H Lymph % (Auto) 11.1 L Knott % (Auto) 8.7 Eos % (Auto) 0.7 Baso % (Auto) 0.6 Absolute Neuts (auto) 6.7 Absolute Lymphs (auto) 0.95 Nucleated RBC % 0 Differential Comment PT 14.4 INR 1.2 APTT 27.2 D-Dimer Quant (PE/DVT) Specimen Type Sample Site pH Bicarbonate Actual Total CO2 Base Excess O2 Saturation O2 % ABG pCO2 ABG pO2 [place] Test Respiration Rate O2 Delivery Device EPAP IPAP Blood Gas Notified Whom Blood Gas Notified Time Sodium Potassium Chloride Carbon Dioxide Anion Gap BUN Creatinine Estim Creat Clear Calc Est GFR (MDRD) Af Amer Est GFR (MDRD) Non-Af BUN/Creatinine Ratio Glucose Lactic Acid Calcium Magnesium Ferritin Total Bilirubin AST ALT Alkaline Phosphatase Lactate Dehydrogenase Troponin I C-React Prot Ext Range B-Natriuretic Peptide Total Protein Albumin Globulin Albumin/Globulin Ratio Triglycerides Cholesterol LDL Cholesterol VLDL Cholesterol HDL Cholesterol Procalcitonin TSH Free T4 Urine Color Urine Clarity Urine pH Ur Specific Tamms Urine Protein Urine Glucose (UA) Urine Ketones Urine Occult Blood Urine Nitrite Urine Bilirubin Urine Urobilinogen Ur Leukocyte Esterase Urine RBC Urine WBC Ur Squamous Epith Cells Urine Bacteria Urine Mucus COVID-19 ([place]) Negative MRSA (PCR) 10/02/19 10/02/19 10/02/19 17:25 17:25 17:25 WBC RBC Hgb Hct MCV MCH MCHC RDW Std Deviation RDW Coeff of Divya Plt Count MPV Immature Gran % (Auto) Neut % (Auto) Lymph % (Auto) Knott % (Auto) Eos % (Auto) Baso % (Auto) Absolute Neuts (auto) Absolute Lymphs (auto) Nucleated RBC % Differential Comment PT INR APTT D-Dimer Quant (PE/DVT) Specimen Type Sample Site pH Bicarbonate Actual Total CO2 Base Excess O2 Saturation O2 % ABG pCO2 ABG pO2 [place] Test Respiration Rate O2 Delivery Device EPAP IPAP Blood Gas Notified Whom Blood Gas Notified Time Sodium 144 Potassium 4.4 Chloride 110 H Carbon Dioxide 34.0 H Anion Gap 0 L BUN 16 Creatinine 0.95 Estim Creat Clear Calc 50.30 Est GFR (MDRD) Af Amer 76 Est GFR (MDRD) Non-Af 63 BUN/Creatinine Ratio 16.9 Glucose 124 H Lactic Acid 1.0 Calcium 8.3 L Magnesium Ferritin Total Bilirubin 0.40 AST 16 ALT 49 Alkaline Phosphatase 33 L Lactate Dehydrogenase Troponin I 0.015 C-React Prot Ext Range B-Natriuretic Peptide 237.0 H Total Protein 6.7 Albumin 3.0 L Globulin 3.7 Albumin/Globulin Ratio 0.8 L Triglycerides Cholesterol LDL Cholesterol VLDL Cholesterol HDL Cholesterol Procalcitonin TSH Free T4 Urine Color Urine Clarity Urine pH Ur Specific Tamms Urine Protein Urine Glucose (UA) Urine Ketones Urine Occult Blood Urine Nitrite Urine Bilirubin Urine Urobilinogen Ur Leukocyte Esterase Urine RBC Urine WBC Ur Squamous Epith Cells Urine Bacteria Urine Mucus COVID-19 ([place]) MRSA (PCR) 10/02/19 10/02/19 10/02/19 17:25 17:25 17:57 WBC RBC Hgb Hct MCV MCH MCHC RDW Std Deviation RDW Coeff of Divya Plt Count MPV Immature Gran % (Auto) Neut % (Auto) Lymph % (Auto) Knott % (Auto) Eos % (Auto) Baso % (Auto) Absolute Neuts (auto) Absolute Lymphs (auto) Nucleated RBC % Differential Comment PT INR APTT D-Dimer Quant (PE/DVT) 1.01 H* Specimen Type ART Sample Site R Radial pH 7.31 L Bicarbonate Actual 36.0 H Total CO2 38 Base Excess 10 H O2 Saturation 94 L O2 % 6 ABG pCO2 71.5 H* ABG pO2 81 Timoteo Test Respiration Rate O2 Delivery Device Cannula EPAP IPAP Blood Gas Notified Whom Blood Gas Notified Time Sodium Potassium Chloride Carbon Dioxide Anion Gap BUN Creatinine Estim Creat Clear Calc Est GFR (MDRD) Af Amer Est GFR (MDRD) Non-Af BUN/Creatinine Ratio Glucose Lactic Acid Calcium Magnesium 2.1 Ferritin 22 Total Bilirubin AST ALT Alkaline Phosphatase Lactate Dehydrogenase 192 Troponin I C-React Prot Ext Range 19.30 H B-Natriuretic Peptide Total Protein Albumin Globulin Albumin/Globulin Ratio Triglycerides Cholesterol LDL Cholesterol VLDL Cholesterol HDL Cholesterol Procalcitonin TSH 3.55 Free T4 0.92 Urine Color Urine Clarity Urine pH Ur Specific Tamms Urine Protein Urine Glucose (UA) Urine Ketones Urine Occult Blood Urine Nitrite Urine Bilirubin Urine Urobilinogen Ur Leukocyte Esterase Urine RBC Urine WBC Ur Squamous Epith Cells Urine Bacteria Urine Mucus COVID-19 ([facility]) MRSA (PCR) 10/02/19 10/02/19 10/03/19 18:05 23:15 00:00 WBC RBC Hgb Hct MCV MCH MCHC RDW Std Deviation RDW Coeff of Divya Plt Count MPV Immature Gran % (Auto) Neut % (Auto) Lymph % (Auto) Knott % (Auto) Eos % (Auto) Baso % (Auto) Absolute Neuts (auto) Absolute Lymphs (auto) Nucleated RBC % Differential Comment PT INR APTT D-Dimer Quant (PE/DVT) Specimen Type Sample Site pH Bicarbonate Actual Total CO2 Base Excess O2 Saturation O2 % ABG pCO2 ABG pO2 [place] Test Respiration Rate O2 Delivery Device EPAP IPAP Blood Gas Notified Whom Blood Gas Notified Time Sodium Potassium Chloride Carbon Dioxide Anion Gap BUN Creatinine Estim Creat Clear Calc Est GFR (MDRD) Af Amer Est GFR (MDRD) Non-Af BUN/Creatinine Ratio Glucose Lactic Acid Calcium Magnesium Ferritin Total Bilirubin AST ALT Alkaline Phosphatase Lactate Dehydrogenase Troponin I C-React Prot Ext Range B-Natriuretic Peptide Total Protein Albumin Globulin Albumin/Globulin Ratio Triglycerides Cholesterol LDL Cholesterol VLDL Cholesterol HDL Cholesterol Procalcitonin 0.08 TSH Free T4 Urine Color Yellow Urine Clarity Sl. Cloudy Urine pH 6.0 Ur Specific Tamms 1.025 Urine Protein 100 H Urine Glucose (UA) Normal Urine Ketones 5 H Urine Occult Blood 25 H Urine Nitrite Negative Urine Bilirubin Negative Urine Urobilinogen 8 H Ur Leukocyte Esterase 25 H Urine RBC 0-5 SEEN Urine WBC 0-5 SEEN Ur Squamous Epith Cells 0-5 SEEN Urine Bacteria RARE Urine Mucus 0 SEEN COVID-19 ([place]) MRSA (PCR) Negative 10/03/19 10/03/19 10/03/19 00:00 03:28 04:30 WBC 7.7 RBC 4.85 Hgb 13.9 Hct 45.9 MCV 94.6 MCH 28.7 MCHC 30.3 L RDW Std Deviation 55.4 H RDW Coeff of Divya 16.0 H Plt Count 185 MPV 10.5 Immature Gran % (Auto) 0.400 Neut % (Auto) 93.3 H Lymph % (Auto) 4.6 L Knott % (Auto) 1.6 Eos % (Auto) 0.0 Baso % (Auto) 0.1 Absolute Neuts (auto) 7.2 Absolute Lymphs (auto) 0.35 L Nucleated RBC % 0 Differential Comment SCANNED PT INR APTT D-Dimer Quant (PE/DVT) Specimen Type ART Sample Site R Radial pH 7.34 L Bicarbonate Actual 35.5 H Total CO2 38 Base Excess 10 H O2 Saturation 88 L O2 % 45 ABG pCO2 65.8 H ABG pO2 61 L Tim[place]o Test Positive Respiration Rate 12.0000 O2 Delivery Device BiPAP EPAP 8 IPAP 14 Blood Gas Notified Whom HOSP Blood Gas Notified Time 328 Sodium Potassium Chloride Carbon Dioxide Anion Gap BUN Creatinine Estim Creat Clear Calc Est GFR (MDRD) Af Amer Est GFR (MDRD) Non-Af BUN/Creatinine Ratio Glucose Lactic Acid Calcium Magnesium Ferritin Total Bilirubin AST ALT Alkaline Phosphatase Lactate Dehydrogenase Troponin I 0.022 C-React Prot Ext Range B-Natriuretic Peptide Total Protein Albumin Globulin Albumin/Globulin Ratio Triglycerides Cholesterol LDL Cholesterol VLDL Cholesterol HDL Cholesterol Procalcitonin TSH Free T4 Urine Color Urine Clarity Urine pH Ur Specific Tamms Urine Protein Urine Glucose (UA) Urine Ketones Urine Occult Blood Urine Nitrite Urine Bilirubin Urine Urobilinogen Ur Leukocyte Esterase Urine RBC Urine WBC Ur Squamous Epith Cells Urine Bacteria Urine Mucus COVID-19 ([place]) MRSA (PCR) 10/03/19 10/03/19 04:30 04:30 WBC RBC Hgb Hct MCV MCH MCHC RDW Std Deviation RDW Coeff of Divya Plt Count MPV Immature Gran % (Auto) Neut % (Auto) Lymph % (Auto) Knott % (Auto) Eos % (Auto) Baso % (Auto) Absolute Neuts (auto) Absolute Lymphs (auto) Nucleated RBC % Differential Comment PT INR APTT D-Dimer Quant (PE/DVT) Specimen Type Sample Site pH Bicarbonate Actual Total CO2 Base Excess O2 Saturation O2 % ABG pCO2 ABG pO2 [place] Test Respiration Rate O2 Delivery Device EPAP IPAP Blood Gas Notified Whom Blood Gas Notified Time Sodium 139 Potassium 4.2 Chloride 103 Carbon Dioxide 35.0 H Anion Gap 1 L BUN 14 Creatinine 0.85 Estim Creat Clear Calc 53.86 Est GFR (MDRD) Af Amer 86 Est GFR (MDRD) Non-Af 71 BUN/Creatinine Ratio 16.5 Glucose 148 H Lactic Acid Calcium 8.1 L Magnesium Ferritin Total Bilirubin 0.30 AST 13 L ALT 43 Alkaline Phosphatase 30 L Lactate Dehydrogenase Troponin I < 0.015 C-React Prot Ext Range B-Natriuretic Peptide Total Protein 6.4 Albumin 2.8 L Globulin 3.6 Albumin/Globulin Ratio 0.8 L Triglycerides 55 Cholesterol 141 LDL Cholesterol 86 VLDL Cholesterol 11 HDL Cholesterol 44 Procalcitonin TSH Free T4 Urine Color Urine Clarity Urine pH Ur Specific Tamms Urine Protein Urine Glucose (UA) Urine Ketones Urine Occult Blood Urine Nitrite Urine Bilirubin Urine Urobilinogen Ur Leukocyte Esterase Urine RBC Urine WBC Ur Squamous Epith Cells Urine Bacteria Urine Mucus COVID-19 ([place]) MRSA (PCR) Microbiology 10/02/19 23:18 Mucosa - Nasopharyngeal Respiratory Panel (PCR) - Final 10/02/19 18:05 Urine, Random Streptococcus pneumoniae Antigen (M - Final 10/02/19 18:05 Urine, Random Legionella Antigen - Final Clinical Impression(s) from Imaging Studies Chest X-Ray 10/02/19 18:26 IMPRESSION: Probable mild pulmonary interstitial edema with small right pleural effusion and right lower lobe atelectasis. Cannot exclude inflammatory disease Electronically Signed: Smith Young MD at 18:54 EDT , Service support , Chest CTA 10/03/19 01:10 IMPRESSION: No demonstrated pulmonary embolism or arterial dissection. Small bilateral pleural effusions larger on the right side. Electronically Signed: Jose Muñiz, at 3:19 EDT Tel , Service support , Current Medications Acetaminophen (Tylenol) 650 mg PO Q6H PRN PRN PRN Reason: Pain Score 1-10/Temp > 100.7 F Al Hydroxide/Mg Hydroxide (Mylanta Ii) 30 ml PO Q6H PRN PRN PRN Reason: Gastric Burning Albuterol Sulfate (Ventolin Aerosols) 2.5 mg INHALATION Q2H [facility] Last Admin: 10/03/19 05:53 Dose: Not Given Documented by: Albuterol Sulfate (Ventolin Aerosols) 2.5 mg INHALATION Q2H PRN PRN PRN Reason: Dyspnea, wheezing Albuterol/Ipratropium (Duoneb) 3 ml INHALATION Q4HWA.RT [facility] Last Admin: 10/03/19 06:51 Dose: 3 ml Documented by: Aspirin (Aspirin, Baby) 81 mg PO DAILY@0800 [facility] Atorvastatin Calcium (Lipitor) 80 mg PO QHS [facility] Last Admin: 10/02/19 23:43 Dose: 80 mg Documented by: Carvedilol (Coreg) 12.5 mg PO BID [facility] Last Admin: 10/02/19 23:43 Dose: 12.5 mg Documented by: Enoxaparin Sodium (Lovenox) 40 mg SC DAILY [facility] Famotidine (Pepcid) 20 mg PO BID [facility] Last Admin: 10/02/19 23:43 Dose: 20 mg Documented by: Furosemide (Lasix) 40 mg IV BID@1000,1800 [facility] Guaifenesin (Robitussin) 10 ml PO Q4H PRN PRN PRN Reason: COUGH Hydralazine HCl (Apresoline Iv) 10 mg IV Q4H PRN PRN PRN Reason: SBP > 160 Azithromycin 500 mg/ Dextrose 255 mls @ 250 mls/hr IV Q24H [facility] Ceftriaxone Sodium 2 gm/ (Sodium Chloride) 50 mls @ 100 mls/hr IV Q24H [facility] Sodium Chloride () 250 mls @ 15 mls/hr IV .[id number] PRN PRN Reason: Saline Flush Sodium Chloride () 250 mls @ 15 mls/hr IV .[id number] PRN PRN Reason: Additional IVPB Infusion Lisinopril (Zestril) 20 mg PO DAILY [facility] Last Admin: 10/02/19 23:43 Dose: 20 mg Documented by: Magnesium Hydroxide (Milk Of Magnesia) 30 ml PO DAILY PRN PRN PRN Reason: Constipation Melatonin (Melatonin) 3 mg PO QHS PRN PRN PRN Reason: INSOMNIA Methylprednisolone (Solu-Medrol) 40 mg IV Q8 [facility] Last Admin: 10/03/19 05:53 Dose: 40 mg Documented by: Morphine Sulfate () 2 mg IV Q3H PRN PRN PRN Reason: Pain Score 6-10/10 Nicotine (Nicoderm Cq (Pbkc)) 21 mg TRANSDERM. DAILY [facility] Last Admin: 10/02/19 23:44 Dose: Not Given Documented by: Nitroglycerin (Nitrostat) 0.4 mg SUBLINGUAL Q5M PRN PRN Reason: CARDIAC/CHEST PAIN Ondansetron HCl (Zofran) 4 mg IV Q8H PRN PRN PRN Reason: NAUSEA/VOMITING Oxycodone HCl (Oxyir) 5 mg PO Q4H PRN PRN PRN Reason: Pain Score 4-5/10 Prochlorperazine Edisylate (Compazine Iv) 5 mg IV Q4H PRN PRN PRN Reason: Breakthrough Nausea/Vomiting Psyllium Hydrophilic Mucilloid (Metamucil) 1 packet PO DAILY PRN PRN PRN Reason: Constipation Senna/Docusate Sodium (Senokot-S, Marianne-Colace) 2 tablet PO BID PRN PRN Reason: Constipation Sodium Chloride () 10 - 40 ml IV UD PRN PRN Reason: SALINE FLUSH Last Admin: 10/03/19 05:53 Dose: 40 ml Documented by: Throat Lozenges (Cepacol Sore Throat Lozenge) 1 lozenge MUCOUS MEM Q2H PRN PRN PRN Reason: SORE THROAT Assessment/Plan Active and Suspected Problems (Last Updated 04/07/18 @ 11:32 by Jaylin Montes) Acute respiratory failure with hypoxia and hypercapnia (Acute) Acute bronchospasm (Acute) Recurrent right pleural effusion (Acute) Right heart failure (Acute) Hypertensive urgency (Acute) Acute exacerbation of CHF (congestive heart failure) (Acute) COPD with acute exacerbation (Acute) Pneumonia (Acute) RECOMMENDATIONS: 1. Continue BiPAP therapy as needed. Wean supplemental oxygen to maintain saturations at or above 90%. 2. Continue scheduled bronchodilator therapy. 3. Continue IV steroids. 4. Continue antimicrobials for now. If cultures are negative tomorrow, antibiotics can be discontinued. 5. Continue scheduled IV Lasix as tolerated by renal function and hemodynamics. 6. Aggressive blood pressure control. 7. Await surface echocardiogram results. 8. Continue nicotine replacement therapy. 9. Encourage incentive spirometer use and mobilize patient as tolerated. IMPRESSIONS: 1. Acute combined respiratory failure While I cannot discount the implications of possible underlying obstructive lung disease, I do strongly suspect that the patient's presenting symptoms were likely the consequence of her hypertensive urgency noted on presentation coupled with what is likely a component of CHF exacerbation with bilateral pleural effusions noted on chest imaging. There was no focal infiltrate or consolidation to suggest pneumonia. However, cultures are currently pending. Therefore, I would plan to continue antibiotics for the next 24 hours. If cultures remain negative tomorrow, antibiotics can be discontinued. In the interim, would plan to continue scheduled bronchodilator therapy along with IV steroids. Continue scheduled therapy as well, as tolerated by hemodynamics and renal function. Await surface echocardiogram results. 2. Suspected COPD with exacerbation/history of nicotine dependency As noted above, plan to continue current supportive measures. I personally spent 5 minutes discussing the deleterious effects of continued tobacco use with the patient, including modalities which could be utilized to achieve a smoke-free lifestyle. Ideally, the patient should follow-up in the pulmonary medicine clinic after discharge so that baseline pulmonary function studies can be obtained. Based on the results of testing, the patient may be a candidate for for the initiation of a maintenance inhaler regimen to assist with alleviating her chronic shortness of breath symptoms. Nicotine replacement therapy will be utilized while the patient is admitted to the hospital. 3. Hypertensive urgency I do suspect that the patient's elevated blood pressures noted on presentation are likely contributing to her presenting symptoms. Agree with aggressive blood pressure control as ordered. 4. Morbid obesity/suspected sleep disordered breathing Complicates care, management, recovery and prognosis. As noted above, I would recommend outpatient pulmonary follow-up within 2 weeks of discharge from the hospital. This note was generated with [employer] dictation software. It may contain incorrect words, spelling, and punctuation that were not noted in checking the note before signing. Inpatient E&M: 66907 Init Hosp L3 - Behavior Interventions Behavior Intervention: 78597 Smoking Cessation 3-10 min
[2019-10-03] MEDS: Aspirin 81 MG TAB.CHEW PO (10:15)
[2019-10-03] MEDS: Carvedilol 12.5 MG Tablet PO (10:15)
[2019-10-03] MEDS: Furosemide 40 MG/4 ML Vial IV ×2 (10:16→17:05)
[2019-10-03] MEDS: Famotidine 20 MG Tablet PO ×2 (10:16→22:32)
[2019-10-03] MEDS: Enoxaparin 40 MG/0.4 ML Syringe SC (10:16)
[2019-10-03] MEDS: Lisinopril 20 MG Tablet PO (10:17)
--- NOTE | 2019-10-03 11:04 | CASEMGMT ---
DANNA AGUAYO assessment: Face to Face with patient for initial transition planning/care coordination assessment. DANNA AGUAYO introduced self and role at [facility], pt voices understanding and consents to assessment at this time. Pt is sitting up on bedside commode at this time in no distress. Pt is currently on 10liters nc at this time. Pt is A/Ox4 at this time and answers all questions appropriately at this time. Care providers, pharmacy, and demographics verified/updated at this time. Presentation: Pt c/o increasing SOB w/ symptoms starting over a year ago Admitting dx: Resp failure, COPD exac, pna, CHF exac PCP: [facility] 1st appt 10/13/2019 Specialists: Pt states no current specialists at this time. [facility]erred [facility]acy: [facility] Insurance: [place]/MCR A Prescription Benefit: [place] Living Will/HPOA: Pt states does not have LW/HPOA and declines AD info at this time. LNOK: Smith Mora, ; Dian Sheehan, daughter Living Arrangements: Pt states lives with in 1 story home with 1 step in and states no concerns at home at this time. Pt states is independent with ADL's. Transportation: Pt states drives self and states no transportation concerns at this time. DME/HHC: Pt states no current DME or need for any at this time. Pt states no preference for DME company, if home oxygen needed at discharge. Pt states no hx of HHC or SNF in the past. Pt states no concerns with going home at time of discharge. Pt states is retired. Pt states smokes 2 packs cigarettes daily and declines ETOH use. Pt states no further concerns/needs at this time. CM to follow for home oxygen qualification and any further discharge planning/needs. Green sheet on chart for home oxygen. Advised pt to ask for CM if any further questions/concerns/needs arise, voices understanding. Pt Goal: Home Plan: Home, pending home oxygen testing/qualification. [place] DANNA AGUAYO
--- NOTE | 2019-10-03 14:12 | PN_ITS ---
Patient Problems: Active and Suspected Problems (Last Updated 04/07/18 @ 11:32 by Jaylin Montes) Acute respiratory failure with hypoxia and hypercapnia (Acute) Acute bronchospasm (Acute) Recurrent right pleural effusion (Acute) Right heart failure (Acute) Hypertensive urgency (Acute) Acute exacerbation of CHF (congestive heart failure) (Acute) COPD with acute exacerbation (Acute) Pneumonia (Acute) Subjective: Feeling much better than when she came in Vitals/I&O's: Vital Signs Temp Pulse Resp BP Pulse Ox 98.2 F 69 20 H 166/86 H 93 10/03/19 08:00 10/03/19 11:00 10/03/19 11:00 10/03/19 11:00 10/03/19 11:00 Oxygen Flow Rate (L/min) 10 Oxygen Delivery Method Nasal Cannula Weight: 250 lb 10.649 oz Body Mass Index (BMI) 43.9 Intake and Output for Last 24 Hours 10/01/19 10/02/19 10/03/19 23:59 23:59 23:59 Intake Total 305 / 305 460 / 460 Output Total 100 / 100 1150 / 1150 Balance 205 / 205 -690 / -690 General: Alert, Oriented x3, Cooperative, No apparent distress HEENT: Atraumatic, PERRLA, EOMI, Normocephalic Oral: Moist Mucosa Neck: Supple, No JVD Lungs: Diminished, Rhonchi, Wheezes Cardiovascular: Regular rate, Regular Rhythm, Normal S1, Normal S2, No murmurs Abdomen: Soft, Non Tender, Non-Distended, No Hepato-splenomegaly Extremities: Capillary Refill Less than 3 Seconds, Edema Skin: No rashes, No breakdown Neurological: Neuro grossly intact, Sensory exam intact to light touch and pain Psych/Mental Status: Normal Affect, Appropriate Microbiology Past 72 Hours 10/02/19 23:18 Mucosa - Nasopharyngeal Respiratory Panel (PCR) - Final 10/02/19 18:05 Urine, Random Streptococcus pneumoniae Antigen (M - Final 10/02/19 18:05 Urine, Random Legionella Antigen - Final Laboratory Results 10/02/19 15:50: COVID-19 ([facility]) Negative 10/02/19 17:25: WBC 8.5, RBC 5.08, Hgb 14.4, Hct 48.1 H, MCV 94.7, MCH 28.3, MCHC 29.9 L, RDW Std Deviation 55.7 H, RDW Coeff of Divya 16.2 H, Plt Count 228, MPV 11.2, Immature Gran % (Auto) 0.200, Neut % (Auto) 78.7 H, Lymph % (Auto) 11.1 L, Kane % (Auto) 8.7, Eos % (Auto) 0.7, Baso % (Auto) 0.6, Absolute Neuts (auto) 6.7, Absolute Lymphs (auto) 0.95, Nucleated RBC % 0 10/02/19 17:25: PT 14.4, INR 1.2, APTT 27.2 10/02/19 17:25: Sodium 144, Potassium 4.4, Chloride 110 H, Carbon Dioxide 34.0 H , Anion Gap 0 L, BUN 16, Creatinine 0.95, Estim Creat Clear Calc 50.30, Est GFR (MDRD) Af Amer 76, Est GFR (MDRD) Non-Af 63, BUN/Creatinine Ratio 16.9, Glucose 124 H, Calcium 8.3 L, Total Bilirubin 0.40, AST 16, ALT 49, Alkaline Phosphatase 33 L, Troponin I 0.015, Total Protein 6.7, Albumin 3.0 L, Globulin 3.7, Albumin/Globulin Ratio 0.8 L 10/02/19 17:25: Lactic Acid 1.0 10/02/19 17:25: B-Natriuretic Peptide 237.0 H 10/02/19 17:25: D-Dimer Quant (PE/DVT) 1.01 H* 10/02/19 17:25: Magnesium 2.1, Ferritin 22, Lactate Dehydrogenase 192, C-React Prot Ext Range 19.30 H, TSH 3.55, Free T4 0.92 10/02/19 17:57: Specimen Type ART, Sample Site R Radial, pH 7.31 L, Bicarbonate Actual 36.0 H, Total CO2 38, Base Excess 10 H, O2 Saturation 94 L, O2 % 6, ABG pCO2 71.5 H*, ABG pO2 81, O2 Delivery Device Cannula 10/02/19 18:05: Urine Color Yellow, Urine Clarity Sl. Cloudy, Urine pH 6.0, Ur Specific [place] 1.025, Urine Protein 100 H, Urine Glucose (UA) Normal, Urine Ketones 5 H, Urine Occult Blood 25 H, Urine Nitrite Negative, Urine Bilirubin Negative, Urine Urobilinogen 8 H, Ur Leukocyte Esterase 25 H, Urine RBC 0-5 SEEN, Urine WBC 0-5 SEEN, Ur Squamous Epith Cells 0-5 SEEN, Urine Bacteria RARE, Urine Mucus 0 SEEN 10/02/19 23:15: MRSA (PCR) Negative 10/03/19 00:00: Procalcitonin 0.08 10/03/19 00:00: Troponin I 0.022 10/03/19 03:28: Specimen Type ART, Sample Site R Radial, pH 7.34 L, Bicarbonate Actual 35.5 H, Total CO2 38, Base Excess 10 H, O2 Saturation 88 L, O2 % 45, ABG pCO2 65.8 H, ABG pO2 61 L, Tim[place]o Test Positive, Respiration Rate 12.0000, O2 Delivery Device BiPAP, EPAP 8, IPAP 14, Blood Gas Notified Whom ASTON TORRES, Blood Gas Notified Time 328 10/03/19 04:30: WBC 7.7, RBC 4.85, Hgb 13.9, Hct 45.9, MCV 94.6, MCH 28.7, MCHC 30.3 L, RDW Std Deviation 55.4 H, RDW Coeff of Divya 16.0 H, Plt Count 185, MPV 10.5, Immature Gran % (Auto) 0.400, Neut % (Auto) 93.3 H, Lymph % (Auto) 4.6 L, Kane % (Auto) 1.6, Eos % (Auto) 0.0, Baso % (Auto) 0.1, Absolute Neuts (auto) 7.2, Absolute Lymphs (auto) 0.35 L, Nucleated RBC % 0, Differential Comment SCANNED 10/03/19 04:30: Sodium 139, Potassium 4.2, Chloride 103, Carbon Dioxide 35.0 H, Anion Gap 1 L, BUN 14, Creatinine 0.85, Estim Creat Clear Calc 53.86, Est GFR (MDRD) Af Amer 86, Est GFR (MDRD) Non-Af 71, BUN/Creatinine Ratio 16.5, Glucose 148 H, Calcium 8.1 L, Total Bilirubin 0.30, AST 13 L, ALT 43, Alkaline Phosphatase 30 L, Total Protein 6.4, Albumin 2.8 L, Globulin 3.6, Albumin/Globulin Ratio 0.8 L, Triglycerides 55, Cholesterol 141, LDL Cholesterol 86, VLDL Cholesterol 11, HDL Cholesterol 44 10/03/19 04:30: Troponin I < 0.015 Current Medications Acetaminophen (Tylenol) 650 mg PO Q6H PRN PRN PRN Reason: Pain Score 1-10/Temp > 100.7 F Al Hydroxide/Mg Hydroxide (Mylanta Ii) 30 ml PO Q6H PRN PRN PRN Reason: Gastric Burning Albuterol Sulfate (Ventolin Aerosols) 2.5 mg INHALATION Q2H PRN PRN PRN Reason: Dyspnea, wheezing Albuterol/Ipratropium (Duoneb) 3 ml INHALATION Q4HWA.RT REPLACED BY [facility] Last Admin: 10/03/19 11:23 Dose: 3 ml Documented by: Aspirin (Aspirin, Baby) 81 mg PO DAILY@0800 REPLACED BY [facility] Last Admin: 10/03/19 10:15 Dose: 81 mg Documented by: Atorvastatin Calcium (Lipitor) 80 mg PO QHS REPLACED BY [facility] Last Admin: 10/02/19 23:43 Dose: 80 mg Documented by: Carvedilol (Coreg) 12.5 mg PO BID REPLACED BY [facility] Last Admin: 10/03/19 10:15 Dose: 12.5 mg Documented by: Enoxaparin Sodium (Lovenox) 40 mg SC DAILY REPLACED BY [facility] Last Admin: 10/03/19 10:16 Dose: 40 mg Documented by: Famotidine (Pepcid) 20 mg PO BID REPLACED BY [facility] Last Admin: 10/03/19 10:16 Dose: 20 mg Documented by: Furosemide (Lasix) 40 mg IV BID@1000,1800 REPLACED BY [facility] Last Admin: 10/03/19 10:16 Dose: 40 mg Documented by: Guaifenesin (Robitussin) 10 ml PO Q4H PRN PRN PRN Reason: COUGH Hydralazine HCl (Apresoline Iv) 10 mg IV Q4H PRN PRN PRN Reason: SBP > 160 Azithromycin 500 mg/ Dextrose 255 mls @ 250 mls/hr IV Q24H REPLACED BY [facility] Ceftriaxone Sodium 2 gm/ (Sodium Chloride) 50 mls @ 100 mls/hr IV Q24H REPLACED BY [facility] Sodium Chloride () 250 mls @ 15 mls/hr IV .[id number] PRN PRN Reason: Saline Flush Sodium Chloride () 250 mls @ 15 mls/hr IV .[id number] PRN PRN Reason: Additional IVPB Infusion Lisinopril (Zestril) 20 mg PO DAILY REPLACED BY [facility] Last Admin: 10/03/19 10:17 Dose: 20 mg Documented by: Magnesium Hydroxide (Milk Of Magnesia) 30 ml PO DAILY PRN PRN PRN Reason: Constipation Melatonin (Melatonin) 3 mg PO QHS PRN PRN PRN Reason: INSOMNIA Methylprednisolone (Solu-Medrol) 40 mg IV Q8 REPLACED BY [facility] Last Admin: 10/03/19 05:53 Dose: 40 mg Documented by: Nicotine (Nicoderm Cq (Pbkc)) 21 mg TRANSDERM. DAILY REPLACED BY [facility] Last Admin: 10/03/19 10:16 Dose: 21 mg Documented by: Nitroglycerin (Nitrostat) 0.4 mg SUBLINGUAL Q5M PRN PRN Reason: CARDIAC/CHEST PAIN Ondansetron HCl (Zofran) 4 mg IV Q8H PRN PRN PRN Reason: NAUSEA/VOMITING Prochlorperazine Edisylate (Compazine Iv) 5 mg IV Q4H PRN PRN PRN Reason: Breakthrough Nausea/Vomiting Psyllium Hydrophilic Mucilloid (Metamucil) 1 packet PO DAILY PRN PRN PRN Reason: Constipation Senna/Docusate Sodium (Senokot-S, Marianne-Colace) 2 tablet PO BID PRN PRN Reason: Constipation Sodium Chloride () 10 - 40 ml IV UD PRN PRN Reason: SALINE FLUSH Last Admin: 10/03/19 10:17 Dose: 20 ml Documented by: Throat Lozenges (Cepacol Sore Throat Lozenge) 1 lozenge MUCOUS MEM Q2H PRN PRN PRN Reason: SORE THROAT STROKE Vital Signs/Narrative: Vital Signs Pulse Resp BP Pulse Ox 10/03/19 11:00 69 20 H 166/86 H 93 Medical Necessity - Tobacco Use Smoking Status: Heavy Smoker (>10/day) Tobacco Use: Cigarettes Assessment/Plan All Active Problems (Last Updated 04/07/18 @ 11:32 by Jaylin Montes) Acute respiratory failure with hypoxia and hypercapnia (Acute) Acute bronchospasm (Acute) Recurrent right pleural effusion (Acute) Right heart failure (Acute) Hypertensive urgency (Acute) Acute exacerbation of CHF (congestive heart failure) (Acute) COPD with acute exacerbation (Acute) Pneumonia (Acute) Impacted cerumen, right ear (Acute) Reactive airway disease (Acute) Bronchitis (Acute) 1. Acute hypoxic and hypercapnic respiratory failure d/t COPD exacerbation and possible CHF with b/l pleural effusions/Tobacco abuse/Morbid Obesity -Discussed tobacco cessation -C/w IV steroids and inhalers -Wean O2 as able -Echo with an EF of 55% and no diastolic dysfunction -No signs of infection, however with c/w abx until cultures finalize -C/w IV lasix BID, renal function is stable -Discussed weight loss 2. Hypertensive Urgency -Likely contributed to her above problems -C/w the lisinopril, coreg DVT: Lovenox Inpatient E&M: 30506 Subs Hosp L2
[2019-10-03] MEDS: Atorvastatin Calcium 80 MG Tablet PO (22:32)
[2019-10-04] VITALS (12 sets, daily range): BP systolic 107–137; BP diastolic 60–92; PULSE 56–88; RESP 12–24; TEMP 36.7–37.3; O2SAT 90–96
[2019-10-04] MEDS: 0.9% Saline Lock 10 ML Syringe IV ×5 (06:16→21:09)
[2019-10-04 06:19] LABS: Absolute Neutrophil Count 10.6 X10^3/uL (2.0-7.7); Basophil# 0.01 X10^3/uL; Basophil% 0.1 % (0-1); Hematocrit 45.2 % (37-47); Hemoglobin 13.3 g/dL (12.0-15.0); Lymphocyte % 4.3 % (19-41); Mean Corp Hgb Conc 29.4 g/dL (32-36); Mean Corpuscular Hgb 28.1 pg (27.0-32.0); Mean Corpuscular Volume 95.6 fL (81-99); Monocyte# 0.42 X10^3/uL; Monocyte% 3.6 % (0-10); NRBC Flagged by Analyzer 0 % (0-5); Neutrophil # 10.58 X10^3/uL (2.7-7.7); Neutrophil % 91.7 % (47-70); POSITIVE DIFFERENTIAL YES; Platelet Count 209 K/mm3 (150-450); RBC Distribution Width SD 55.1 fl (35.1-43.9); Red Blood Count 4.73 M/mm3 (4.2-5.4); White Blood Count 11.6 K/mm3 (4.4-11.0)
[2019-10-04 06:22] LABS: Differential Indicated SCAN CRITERIA MET
[2019-10-04] MEDS: Ipratropium/Albuterol Sulfate 3 ML AMPUL.NEB INHALATION ×4 (06:44→19:05)
[2019-10-04 06:56] LABS: Differential Comment SCANNED
--- NOTE | 2019-10-04 06:59 | PN_ITS ---
Patient Problems: Active and Suspected Problems (Last Updated 04/07/18 @ 11:32 by Jaylin Montes) Acute respiratory failure with hypoxia and hypercapnia (Acute) Acute bronchospasm (Acute) Recurrent right pleural effusion (Acute) Right heart failure (Acute) Hypertensive urgency (Acute) Acute exacerbation of CHF (congestive heart failure) (Acute) COPD with acute exacerbation (Acute) Pneumonia (Acute) Subjective: The patient was seen and examined at the bedside this morning. Events from the last 24 hours have been reviewed. The patient is currently afebrile, hemodynamically stable and maintaining appropriate oxygen saturations on 8 L/min via nasal cannula. The patient is currently documented to be overall net -1.3 L for the hospital admission. The patient does report some interval improvement in her shortness of breath this morning. Objective: The patient's most recent lab work, culture data and imaging studies have all been personally reviewed. Surface echocardiogram revealed normal LV size with an ejection fraction of 55%. Right ventricular systolic pressure was unable to be estimated. CTA chest demonstrated no evidence for pulmonary embolism. There were bilateral pleural effusions, right greater than left with associated compressive atelectasis. Strep and urine Legionella antigens were negative. Respiratory viral panel was negative. Blood and urine cultures are pending. Coronavirus PCR was negative. MRSA screen was negative. - Physical Exam Vitals/I&O's: Vital Signs Temp Pulse Resp BP Pulse Ox 98.7 F 59 L 20 H 131/62 H 93 10/04/19 04:30 10/04/19 04:30 10/04/19 04:30 10/04/19 04:30 10/04/19 04:30 Oxygen Flow Rate (L/min) 8 Oxygen Delivery Method Nasal Cannula Weight: 248 lb 3.848 oz Body Mass Index (BMI) 43.9 Intake and Output for Last 24 Hours 10/02/19 10/03/19 10/04/19 23:59 23:59 23:59 Intake Total 305 / 305 950.75 / 950.75 305 / 305 Output Total 100 / 100 2250 / 2250 600 / 600 Balance 205 / 205 -1299.25 / -1299.25 -295 / -295 General: Alert, Cooperative, No apparent distress HEENT: Atraumatic, PERRLA, Normocephalic Oral: No Gingival or Mucosal Lesions/ Ulcerations Neck: Supple, No Nodes, Trachea Midline Lungs: No rhonchi, No rales, Diminished, Wheezes Cardiovascular: Regular rate, Regular Rhythm Abdomen: Bowel Sounds Present, Soft, Non Tender, Obese Extremities: No clubbing, No cyanosis, Edema Skin: No breakdown Musculoskeletal: No Tenderness to Palpation of Joints or Extremities, No Muscle Wasting Lymphatic: No Cervical, Supraclavicular, or Inguinal Adenopathy Neurological: Cranial nerves II-XII grossly intact, Neuro grossly intact Psych/Mental Status: Alert and oriented to time, place, person, mood and affect Labs (Last 48 Hours) 10/02/19 10/02/19 10/02/19 15:50 17:25 17:25 WBC 8.5 RBC 5.08 Hgb 14.4 Hct 48.1 H MCV 94.7 MCH 28.3 MCHC 29.9 L RDW Std Deviation 55.7 H RDW Coeff of Divya 16.2 H Plt Count 228 MPV 11.2 Immature Gran % (Auto) 0.200 Neut % (Auto) 78.7 H Lymph % (Auto) 11.1 L Hancock % (Auto) 8.7 Eos % (Auto) 0.7 Baso % (Auto) 0.6 Absolute Neuts (auto) 6.7 Absolute Lymphs (auto) 0.95 Nucleated RBC % 0 Differential Comment PT 14.4 INR 1.2 APTT 27.2 D-Dimer Quant (PE/DVT) Specimen Type Sample Site pH Bicarbonate Actual Total CO2 Base Excess O2 Saturation O2 % ABG pCO2 ABG pO2 Timoteo Test Respiration Rate O2 Delivery Device EPAP IPAP Blood Gas Notified Whom Blood Gas Notified Time Sodium Potassium Chloride Carbon Dioxide Anion Gap BUN Creatinine Estim Creat Clear Calc Est GFR (MDRD) Af Amer Est GFR (MDRD) Non-Af BUN/Creatinine Ratio Glucose Lactic Acid Calcium Magnesium Ferritin Total Bilirubin AST ALT Alkaline Phosphatase Lactate Dehydrogenase Troponin I C-React Prot Ext Range B-Natriuretic Peptide Total Protein Albumin Globulin Albumin/Globulin Ratio Triglycerides Cholesterol LDL Cholesterol VLDL Cholesterol HDL Cholesterol Procalcitonin TSH Free T4 Urine Color Urine Clarity Urine pH Ur Specific Hankinson Urine Protein Urine Glucose (UA) Urine Ketones Urine Occult Blood Urine Nitrite Urine Bilirubin Urine Urobilinogen Ur Leukocyte Esterase Urine RBC Urine WBC Ur Squamous Epith Cells Urine Bacteria Urine Mucus COVID-19 ([facility]) Negative MRSA (PCR) 10/02/19 10/02/19 10/02/19 17:25 17:25 17:25 WBC RBC Hgb Hct MCV MCH MCHC RDW Std Deviation RDW Coeff of Divya Plt Count MPV Immature Gran % (Auto) Neut % (Auto) Lymph % (Auto) Hancock % (Auto) Eos % (Auto) Baso % (Auto) Absolute Neuts (auto) Absolute Lymphs (auto) Nucleated RBC % Differential Comment PT INR APTT D-Dimer Quant (PE/DVT) Specimen Type Sample Site pH Bicarbonate Actual Total CO2 Base Excess O2 Saturation O2 % ABG pCO2 ABG pO2 Tim[place]o Test Respiration Rate O2 Delivery Device EPAP IPAP Blood Gas Notified Whom Blood Gas Notified Time Sodium 144 Potassium 4.4 Chloride 110 H Carbon Dioxide 34.0 H Anion Gap 0 L BUN 16 Creatinine 0.95 Estim Creat Clear Calc 50.30 Est GFR (MDRD) Af Amer 76 Est GFR (MDRD) Non-Af 63 BUN/Creatinine Ratio 16.9 Glucose 124 H Lactic Acid 1.0 Calcium 8.3 L Magnesium Ferritin Total Bilirubin 0.40 AST 16 ALT 49 Alkaline Phosphatase 33 L Lactate Dehydrogenase Troponin I 0.015 C-React Prot Ext Range B-Natriuretic Peptide 237.0 H Total Protein 6.7 Albumin 3.0 L Globulin 3.7 Albumin/Globulin Ratio 0.8 L Triglycerides Cholesterol LDL Cholesterol VLDL Cholesterol HDL Cholesterol Procalcitonin TSH Free T4 Urine Color Urine Clarity Urine pH Ur Specific Hank[place] Urine Protein Urine Glucose (UA) Urine Ketones Urine Occult Blood Urine Nitrite Urine Bilirubin Urine Urobilinogen Ur Leukocyte Esterase Urine RBC Urine WBC Ur Squamous Epith Cells Urine Bacteria Urine Mucus COVID-19 ([facility]) MRSA (PCR) 10/02/19 10/02/19 10/02/19 17:25 17:25 17:57 WBC RBC Hgb Hct MCV MCH MCHC RDW Std Deviation RDW Coeff of Divya Plt Count MPV Immature Gran % (Auto) Neut % (Auto) Lymph % (Auto) Hancock % (Auto) Eos % (Auto) Baso % (Auto) Absolute Neuts (auto) Absolute Lymphs (auto) Nucleated RBC % Differential Comment PT INR APTT D-Dimer Quant (PE/DVT) 1.01 H* Specimen Type ART Sample Site R Radial pH 7.31 L Bicarbonate Actual 36.0 H Total CO2 38 Base Excess 10 H O2 Saturation 94 L O2 % 6 ABG pCO2 71.5 H* ABG pO2 81 Timoteo Test Respiration Rate O2 Delivery Device Cannula EPAP IPAP Blood Gas Notified Whom Blood Gas Notified Time Sodium Potassium Chloride Carbon Dioxide Anion Gap BUN Creatinine Estim Creat Clear Calc Est GFR (MDRD) Af Amer Est GFR (MDRD) Non-Af BUN/Creatinine Ratio Glucose Lactic Acid Calcium Magnesium 2.1 Ferritin 22 Total Bilirubin AST ALT Alkaline Phosphatase Lactate Dehydrogenase 192 Troponin I C-React Prot Ext Range 19.30 H B-Natriuretic Peptide Total Protein Albumin Globulin Albumin/Globulin Ratio Triglycerides Cholesterol LDL Cholesterol VLDL Cholesterol HDL Cholesterol Procalcitonin TSH 3.55 Free T4 0.92 Urine Color Urine Clarity Urine pH Ur Specific Hankinson Urine Protein Urine Glucose (UA) Urine Ketones Urine Occult Blood Urine Nitrite Urine Bilirubin Urine Urobilinogen Ur Leukocyte Esterase Urine RBC Urine WBC Ur Squamous Epith Cells Urine Bacteria Urine Mucus COVID-19 ([facility]) MRSA (PCR) 10/02/19 10/02/19 10/03/19 18:05 23:15 00:00 WBC RBC Hgb Hct MCV MCH MCHC RDW Std Deviation RDW Coeff of Divya Plt Count MPV Immature Gran % (Auto) Neut % (Auto) Lymph % (Auto) Hancock % (Auto) Eos % (Auto) Baso % (Auto) Absolute Neuts (auto) Absolute Lymphs (auto) Nucleated RBC % Differential Comment PT INR APTT D-Dimer Quant (PE/DVT) Specimen Type Sample Site pH Bicarbonate Actual Total CO2 Base Excess O2 Saturation O2 % ABG pCO2 ABG pO2 Timoteo Test Respiration Rate O2 Delivery Device EPAP IPAP Blood Gas Notified Whom Blood Gas Notified Time Sodium Potassium Chloride Carbon Dioxide Anion Gap BUN Creatinine Estim Creat Clear Calc Est GFR (MDRD) Af Amer Est GFR (MDRD) Non-Af BUN/Creatinine Ratio Glucose Lactic Acid Calcium Magnesium Ferritin Total Bilirubin AST ALT Alkaline Phosphatase Lactate Dehydrogenase Troponin I C-React Prot Ext Range B-Natriuretic Peptide Total Protein Albumin Globulin Albumin/Globulin Ratio Triglycerides Cholesterol LDL Cholesterol VLDL Cholesterol HDL Cholesterol Procalcitonin 0.08 TSH Free T4 Urine Color Yellow Urine Clarity Sl. Cloudy Urine pH 6.0 Ur Specific Hankinson 1.025 Urine Protein 100 H Urine Glucose (UA) Normal Urine Ketones 5 H Urine Occult Blood 25 H Urine Nitrite Negative Urine Bilirubin Negative Urine Urobilinogen 8 H Ur Leukocyte Esterase 25 H Urine RBC 0-5 SEEN Urine WBC 0-5 SEEN Ur Squamous Epith Cells 0-5 SEEN Urine Bacteria RARE Urine Mucus 0 SEEN COVID-19 ([facility]) MRSA (PCR) Negative 10/03/19 10/03/19 10/03/19 00:00 03:28 04:30 WBC 7.7 RBC 4.85 Hgb 13.9 Hct 45.9 MCV 94.6 MCH 28.7 MCHC 30.3 L RDW Std Deviation 55.4 H RDW Coeff of Divya 16.0 H Plt Count 185 MPV 10.5 Immature Gran % (Auto) 0.400 Neut % (Auto) 93.3 H Lymph % (Auto) 4.6 L Hancock % (Auto) 1.6 Eos % (Auto) 0.0 Baso % (Auto) 0.1 Absolute Neuts (auto) 7.2 Absolute Lymphs (auto) 0.35 L Nucleated RBC % 0 Differential Comment SCANNED PT INR APTT D-Dimer Quant (PE/DVT) Specimen Type ART Sample Site R Radial pH 7.34 L Bicarbonate Actual 35.5 H Total CO2 38 Base Excess 10 H O2 Saturation 88 L O2 % 45 ABG pCO2 65.8 H ABG pO2 61 L Timoteo Test Positive Respiration Rate 12.0000 O2 Delivery Device BiPAP EPAP 8 IPAP 14 Blood Gas Notified Whom HOSP Blood Gas Notified Time 328 Sodium Potassium Chloride Carbon Dioxide Anion Gap BUN Creatinine Estim Creat Clear Calc Est GFR (MDRD) Af Amer Est GFR (MDRD) Non-Af BUN/Creatinine Ratio Glucose Lactic Acid Calcium Magnesium Ferritin Total Bilirubin AST ALT Alkaline Phosphatase Lactate Dehydrogenase Troponin I 0.022 C-React Prot Ext Range B-Natriuretic Peptide Total Protein Albumin Globulin Albumin/Globulin Ratio Triglycerides Cholesterol LDL Cholesterol VLDL Cholesterol HDL Cholesterol Procalcitonin TSH Free T4 Urine Color Urine Clarity Urine pH Ur Specific [place] Urine Protein Urine Glucose (UA) Urine Ketones Urine Occult Blood Urine Nitrite Urine Bilirubin Urine Urobilinogen Ur Leukocyte Esterase Urine RBC Urine WBC Ur Squamous Epith Cells Urine Bacteria Urine Mucus COVID-19 ([facility]) MRSA (PCR) 10/03/19 10/03/19 10/04/19 04:30 04:30 05:45 WBC 11.6 H RBC 4.73 Hgb 13.3 Hct 45.2 MCV 95.6 MCH 28.1 MCHC 29.4 L RDW Std Deviation 55.1 H RDW Coeff of Divya 16.0 H Plt Count 209 MPV 11.0 Immature Gran % (Auto) 0.300 Neut % (Auto) 91.7 H Lymph % (Auto) 4.3 L Hancock % (Auto) 3.6 Eos % (Auto) 0.0 Baso % (Auto) 0.1 Absolute Neuts (auto) 10.6 H Absolute Lymphs (auto) 0.50 L Nucleated RBC % 0 Differential Comment SCANNED PT INR APTT D-Dimer Quant (PE/DVT) Specimen Type Sample Site pH Bicarbonate Actual Total CO2 Base Excess O2 Saturation O2 % ABG pCO2 ABG pO2 Timoteo Test Respiration Rate O2 Delivery Device EPAP IPAP Blood Gas Notified Whom Blood Gas Notified Time Sodium 139 Potassium 4.2 Chloride 103 Carbon Dioxide 35.0 H Anion Gap 1 L BUN 14 Creatinine 0.85 Estim Creat Clear Calc 53.86 Est GFR (MDRD) Af Amer 86 Est GFR (MDRD) Non-Af 71 BUN/Creatinine Ratio 16.5 Glucose 148 H Lactic Acid Calcium 8.1 L Magnesium Ferritin Total Bilirubin 0.30 AST 13 L ALT 43 Alkaline Phosphatase 30 L Lactate Dehydrogenase Troponin I < 0.015 C-React Prot Ext Range B-Natriuretic Peptide Total Protein 6.4 Albumin 2.8 L Globulin 3.6 Albumin/Globulin Ratio 0.8 L Triglycerides 55 Cholesterol 141 LDL Cholesterol 86 VLDL Cholesterol 11 HDL Cholesterol 44 Procalcitonin TSH Free T4 Urine Color Urine Clarity Urine pH Ur Specific Hankinson Urine Protein Urine Glucose (UA) Urine Ketones Urine Occult Blood Urine Nitrite Urine Bilirubin Urine Urobilinogen Ur Leukocyte Esterase Urine RBC Urine WBC Ur Squamous Epith Cells Urine Bacteria Urine Mucus COVID-19 ([facility]) MRSA (PCR) 10/04/19 05:45 WBC RBC Hgb Hct MCV MCH MCHC RDW Std Deviation RDW Coeff of Divya Plt Count MPV Immature Gran % (Auto) Neut % (Auto) Lymph % (Auto) Hancock % (Auto) Eos % (Auto) Baso % (Auto) Absolute Neuts (auto) Absolute Lymphs (auto) Nucleated RBC % Differential Comment PT INR APTT D-Dimer Quant (PE/DVT) Specimen Type Sample Site pH Bicarbonate Actual Total CO2 Base Excess O2 Saturation O2 % ABG pCO2 ABG pO2 Timoteo Test Respiration Rate O2 Delivery Device EPAP IPAP Blood Gas Notified Whom Blood Gas Notified Time Sodium Pending Potassium Pending Chloride Pending Carbon Dioxide Pending Anion Gap Pending BUN Pending Creatinine Pending Estim Creat Clear Calc Est GFR (MDRD) Af Amer Pending Est GFR (MDRD) Non-Af Pending BUN/Creatinine Ratio Pending Glucose Pending Lactic Acid Calcium Pending Magnesium Ferritin Total Bilirubin AST ALT Alkaline Phosphatase Lactate Dehydrogenase Troponin I C-React Prot Ext Range B-Natriuretic Peptide Total Protein Albumin Globulin Albumin/Globulin Ratio Triglycerides Cholesterol LDL Cholesterol VLDL Cholesterol HDL Cholesterol Procalcitonin TSH Free T4 Urine Color Urine Clarity Urine pH Ur Specific Hank[place] Urine Protein Urine Glucose (UA) Urine Ketones Urine Occult Blood Urine Nitrite Urine Bilirubin Urine Urobilinogen Ur Leukocyte Esterase Urine RBC Urine WBC Ur Squamous Epith Cells Urine Bacteria Urine Mucus COVID-19 ([facility]) MRSA (PCR) Microbiology 10/02/19 23:18 Mucosa - Nasopharyngeal Respiratory Panel (PCR) - Final 10/02/19 18:05 Urine, Random Streptococcus pneumoniae Antigen (M - Final 10/02/19 18:05 Urine, Random Legionella Antigen - Final Clinical Impression(s) from Imaging Studies Chest X-Ray 10/02/19 18:26 IMPRESSION: Probable mild pulmonary interstitial edema with small right pleural effusion and right lower lobe atelectasis. Cannot exclude inflammatory disease Electronically Signed: Smith Young MD at 18:54 EDT , Service support , Chest CTA 10/03/19 01:10 IMPRESSION: No demonstrated pulmonary embolism or arterial dissection. Small bilateral pleural effusions larger on the right side. Electronically Signed: Jose Muñiz at 3:19 EDT Tel , Service support , Current Medications Acetaminophen (Tylenol) 650 mg PO Q6H PRN PRN PRN Reason: Pain Score 1-10/Temp > 100.7 F Al Hydroxide/Mg Hydroxide (Mylanta Ii) 30 ml PO Q6H PRN PRN PRN Reason: Gastric Burning Albuterol Sulfate (Ventolin Aerosols) 2.5 mg INHALATION Q2H PRN PRN PRN Reason: Dyspnea, wheezing Albuterol/Ipratropium (Duoneb) 3 ml INHALATION Q4HWA.RT [facility] Last Admin: 10/04/19 06:44 Dose: 3 ml Documented by: Aspirin (Aspirin, Baby) 81 mg PO DAILY@0800 [facility] Last Admin: 10/03/19 10:15 Dose: 81 mg Documented by: Atorvastatin Calcium (Lipitor) 80 mg PO QHS [facility] Last Admin: 10/03/19 22:32 Dose: 80 mg Documented by: Carvedilol (Coreg) 12.5 mg PO BID [facility] Last Admin: 10/03/19 22:32 Dose: Not Given Documented by: Enoxaparin Sodium (Lovenox) 40 mg SC DAILY [facility] Last Admin: 10/03/19 10:16 Dose: 40 mg Documented by: Famotidine (Pepcid) 20 mg PO BID [facility] Last Admin: 10/03/19 22:32 Dose: 20 mg Documented by: Furosemide (Lasix) 40 mg IV BID@1000,1800 [facility] Last Admin: 10/03/19 17:05 Dose: 40 mg Documented by: Guaifenesin (Robitussin) 10 ml PO Q4H PRN PRN PRN Reason: COUGH Hydralazine HCl (Apresoline Iv) 10 mg IV Q4H PRN PRN PRN Reason: SBP > 160 Azithromycin 500 mg/ Dextrose 255 mls @ 250 mls/hr IV Q24H [facility] Last Infusion: 10/04/19 01:02 Dose: Infused Documented by: Ceftriaxone Sodium 2 gm/ (Sodium Chloride) 50 mls @ 100 mls/hr IV Q24H [facility] Last Infusion: 10/03/19 22:42 Dose: Infused Documented by: Sodium Chloride () 250 mls @ 15 mls/hr IV .[id number] PRN PRN Reason: Saline Flush Last Infusion: 10/04/19 01:02 Dose: 15 mls/hr Documented by: Sodium Chloride () 250 mls @ 15 mls/hr IV .[id number] PRN PRN Reason: Additional IVPB Infusion Lisinopril (Zestril) 20 mg PO DAILY [facility] Last Admin: 10/03/19 10:17 Dose: 20 mg Documented by: Magnesium Hydroxide (Milk Of Magnesia) 30 ml PO DAILY PRN PRN PRN Reason: Constipation Melatonin (Melatonin) 3 mg PO QHS PRN PRN PRN Reason: INSOMNIA Methylprednisolone (Solu-Medrol) 40 mg IV Q8 [facility] Last Admin: 10/04/19 06:16 Dose: 40 mg Documented by: Nicotine (Nicoderm Cq (Pbkc)) 21 mg TRANSDERM. DAILY [facility] Last Admin: 10/03/19 10:16 Dose: 21 mg Documented by: Nitroglycerin (Nitrostat) 0.4 mg SUBLINGUAL Q5M PRN PRN Reason: CARDIAC/CHEST PAIN Ondansetron HCl (Zofran) 4 mg IV Q8H PRN PRN PRN Reason: NAUSEA/VOMITING Prochlorperazine Edisylate (Compazine Iv) 5 mg IV Q4H PRN PRN PRN Reason: Breakthrough Nausea/Vomiting Psyllium Hydrophilic Mucilloid (Metamucil) 1 packet PO DAILY PRN PRN PRN Reason: Constipation Senna/Docusate Sodium (Senokot-S, Marianne-Colace) 2 tablet PO BID PRN PRN Reason: Constipation Sodium Chloride () 10 - 40 ml IV UD PRN PRN Reason: SALINE FLUSH Last Admin: 10/04/19 06:16 Dose: 20 ml Documented by: Throat Lozenges (Cepacol Sore Throat Lozenge) 1 lozenge MUCOUS MEM Q2H PRN PRN PRN Reason: SORE THROAT Medical Necessity - Tobacco Use Smoking Status: Heavy Smoker (>10/day) Tobacco Use: Cigarettes Assessment/Plan All Active Problems (Last Updated 04/07/18 @ 11:32 by Jaylin Montes) Acute respiratory failure with hypoxia and hypercapnia (Acute) Acute bronchospasm (Acute) Recurrent right pleural effusion (Acute) Right heart failure (Acute) Hypertensive urgency (Acute) Acute exacerbation of CHF (congestive heart failure) (Acute) COPD with acute exacerbation (Acute) Pneumonia (Acute) Impacted cerumen, right ear (Acute) Reactive airway disease (Acute) Bronchitis (Acute) RECOMMENDATIONS: 1. I would recommend that, at a minimum, the patient be continued on BiPAP therapy nightly to assist with alveolar recruitment. 2. Continue scheduled bronchodilator therapy. 3. Continue IV steroids. 4. Antibiotics can be discontinued from my perspective. 5. Continue scheduled IV Lasix as tolerated by renal function and hemodynamics. 6. Continue nicotine replacement therapy. 7. Encourage incentive spirometer use and mobilize patient as tolerated. IMPRESSIONS: 1. Acute combined respiratory failure While I cannot discount the implications of possible underlying obstructive lung disease, I do strongly suspect that the patient's presenting symptoms were likely the consequence of her hypertensive urgency noted on presentation coupled with what is likely a component of CHF exacerbation with bilateral pleural effusions noted on chest imaging. There was no focal infiltrate or consolidation to suggest pneumonia. Given that the patient remains afebrile with a negative infectious work-up, antibiotics can be discontinued from my perspective. I would plan to continue scheduled diuretic therapy as tolerated by renal function and hemodynamics. Scheduled bronchodilators and IV steroids will also be continued. Continue to wean oxygen as tolerated. 2. Suspected COPD with exacerbation/history of nicotine dependency As noted above, plan to continue current supportive measures. Smoking cessation counseling was provided. Ideally, the patient should follow-up in the pulmonary medicine clinic after discharge so that baseline pulmonary function studies can be obtained. Based on the results of testing, the patient may be a candidate for for the initiation of a maintenance inhaler regimen to assist with alleviating her chronic shortness of breath symptoms. Nicotine replacement therapy will be utilized while the patient is admitted to the hospital. 3. Hypertensive urgency I do suspect that the patient's elevated blood pressures noted on presentation are likely contributing to her presenting symptoms. Agree with aggressive blood pressure control as ordered. 4. Morbid obesity/suspected sleep disordered breathing Complicates care, management, recovery and prognosis. As noted above, I would recommend outpatient pulmonary follow-up within 2 weeks of discharge from the hospital. I would recommend that the patient be continued on nocturnal BiPAP therapy, at a minimum, to assist with alveolar recruitment and resolution of atelectasis. This note was generated with [employer] dictation software. It may contain incorrect words, spelling, and punctuation that were not noted in checking the note before signing. Inpatient E&M: 20449 Subs Hosp L2
[2019-10-04 07:05] LABS: Anion Gap 3 (5-15); BUN 23 mg/dL (7-18); BUN/Creat Ratio 26.4 RATIO (10-20); Calcium,Total 8.2 mg/dL (8.5-10.1); Chloride 100 mmol/L (98-107); Creatinine, Serum 0.87 mg/dL (0.55-1.02); EST Glomerular Filtration Rate 69 mL/min (>60); Est Glom Filt Rate - Afr Amer 84 mL/min (>60); Estimated Creatinine Clearance 52.62 ml/min; Glucose 138 mg/dL (74-106); Potassium 4.3 mmol/L (3.5-5.1); Sodium Level 139 mmol/L (136-145)
[2019-10-04] MEDS: Famotidine 20 MG Tablet PO ×2 (09:37→21:06)
[2019-10-04] MEDS: Enoxaparin 40 MG/0.4 ML Syringe SC (09:37)
[2019-10-04] MEDS: Furosemide 40 MG/4 ML Vial IV ×2 (09:37→17:11)
[2019-10-04] MEDS: Lisinopril 20 MG Tablet PO (09:37)
[2019-10-04] MEDS: Aspirin 81 MG TAB.CHEW PO (09:37)
[2019-10-04] MEDS: Carvedilol 12.5 MG Tablet PO ×2 (09:37→21:06)
--- NOTE | 2019-10-04 10:46 | PN_ITS ---
Patient Problems: Active and Suspected Problems (Last Updated 04/07/18 @ 11:32 by Jaylin Montes) Acute respiratory failure with hypoxia and hypercapnia (Acute) Acute bronchospasm (Acute) Recurrent right pleural effusion (Acute) Right heart failure (Acute) Hypertensive urgency (Acute) Acute exacerbation of CHF (congestive heart failure) (Acute) COPD with acute exacerbation (Acute) Pneumonia (Acute) Subjective: Feeling better, no issues overnight. She still requiring 8 L of oxygen via nasal cannula. Vitals/I&O's: Vital Signs Temp Pulse Resp BP Pulse Ox 98.6 F 84 18 120/92 H 96 10/04/19 09:30 10/04/19 09:30 10/04/19 09:30 10/04/19 09:30 10/04/19 09:30 Oxygen Flow Rate (L/min) 8 Oxygen Delivery Method Nasal Cannula Weight: 248 lb 3.848 oz Body Mass Index (BMI) 43.9 Intake and Output for Last 24 Hours 10/02/19 10/03/19 10/04/19 23:59 23:59 23:59 Intake Total 305 / 305 950.75 / 950.75 409.5 / 409.5 Output Total 100 / 100 2250 / 2250 600 / 600 Balance 205 / 205 -1299.25 / -1299.25 -190.5 / -190.5 General: Alert, Oriented x3, Cooperative, No apparent distress HEENT: Atraumatic, PERRLA, EOMI, Normocephalic Oral: Moist Mucosa Neck: Supple, No JVD Lungs: Diminished, no rhonchi, mild wheezing Cardiovascular: Regular rate, Regular Rhythm, Normal S1, Normal S2, No murmurs Abdomen: Soft, Non Tender, Non-Distended, No Hepato-splenomegaly Extremities: Capillary Refill Less than 3 Seconds, Edema 1+ Skin: No rashes, No breakdown Neurological: Neuro grossly intact, Sensory exam intact to light touch and pain Psych/Mental Status: Normal Affect, Appropriate Microbiology Past 72 Hours 10/02/19 18:05 Urine, Random Urine Culture - Preliminary Culture exhibits no growth. 10/02/19 23:18 Mucosa - Nasopharyngeal Respiratory Panel (PCR) - Final 10/02/19 18:05 Urine, Random Streptococcus pneumoniae Antigen (M - Final 10/02/19 18:05 Urine, Random Legionella Antigen - Final Laboratory Results 10/04/19 05:45: WBC 11.6 H, RBC 4.73, Hgb 13.3, Hct 45.2, MCV 95.6, MCH 28.1, MCHC 29.4 L, RDW Std Deviation 55.1 H, RDW Coeff of Divya 16.0 H, Plt Count 209, MPV 11.0, Immature Gran % (Auto) 0.300, Neut % (Auto) 91.7 H, Lymph % (Auto) 4.3 L, [place] % (Auto) 3.6, Eos % (Auto) 0.0, Baso % (Auto) 0.1, Absolute Neuts (auto) 10.6 H, Absolute Lymphs (auto) 0.50 L, Nucleated RBC % 0, Differential Comment SCANNED 10/04/19 05:45: Sodium 139, Potassium 4.3, Chloride 100, Carbon Dioxide 36.0 H, Anion Gap 3 L, BUN 23 H, Creatinine 0.87, Estim Creat Clear Calc 52.62, Est GFR (MDRD) Af Amer 84, Est GFR (MDRD) Non-Af 69, BUN/Creatinine Ratio 26.4 H, Glucose 138 H, Calcium 8.2 L Current Medications Acetaminophen (Tylenol) 650 mg PO Q6H PRN PRN PRN Reason: Pain Score 1-10/Temp > 100.7 F Al Hydroxide/Mg Hydroxide (Mylanta Ii) 30 ml PO Q6H PRN PRN PRN Reason: Gastric Burning Albuterol Sulfate (Ventolin Aerosols) 2.5 mg INHALATION Q2H PRN PRN PRN Reason: Dyspnea, wheezing Albuterol/Ipratropium (Duoneb) 3 ml INHALATION Q4HWA.RT [facility] Last Admin: 10/04/19 06:44 Dose: 3 ml Documented by: Aspirin (Aspirin, Baby) 81 mg PO DAILY@0800 [facility] Last Admin: 10/04/19 09:37 Dose: 81 mg Documented by: Atorvastatin Calcium (Lipitor) 80 mg PO QHS [facility] Last Admin: 10/03/19 22:32 Dose: 80 mg Documented by: Carvedilol (Coreg) 12.5 mg PO BID [facility] Last Admin: 10/04/19 09:37 Dose: 12.5 mg Documented by: Enoxaparin Sodium (Lovenox) 40 mg SC DAILY [facility] Last Admin: 10/04/19 09:37 Dose: 40 mg Documented by: Famotidine (Pepcid) 20 mg PO BID [facility] Last Admin: 10/04/19 09:37 Dose: 20 mg Documented by: Furosemide (Lasix) 40 mg IV BID@1000,1800 [facility] Last Admin: 10/04/19 09:37 Dose: 40 mg Documented by: Guaifenesin (Robitussin) 10 ml PO Q4H PRN PRN PRN Reason: COUGH Hydralazine HCl (Apresoline Iv) 10 mg IV Q4H PRN PRN PRN Reason: SBP > 160 Azithromycin 500 mg/ Dextrose 255 mls @ 250 mls/hr IV Q24H [facility] Last Infusion: 10/04/19 01:02 Dose: Infused Documented by: Ceftriaxone Sodium 2 gm/ (Sodium Chloride) 50 mls @ 100 mls/hr IV Q24H [facility] Last Infusion: 10/03/19 22:42 Dose: Infused Documented by: Sodium Chloride () 250 mls @ 15 mls/hr IV .[id number] PRN PRN Reason: Saline Flush Last Infusion: 10/04/19 08:00 Dose: 0 mls/hr Documented by: Sodium Chloride () 250 mls @ 15 mls/hr IV .[id number] PRN PRN Reason: Additional IVPB Infusion Lisinopril (Zestril) 20 mg PO DAILY [facility] Last Admin: 10/04/19 09:37 Dose: 20 mg Documented by: Magnesium Hydroxide (Milk Of Magnesia) 30 ml PO DAILY PRN PRN PRN Reason: Constipation Melatonin (Melatonin) 3 mg PO QHS PRN PRN PRN Reason: INSOMNIA Methylprednisolone (Solu-Medrol) 40 mg IV Q8 [facility] Last Admin: 10/04/19 06:16 Dose: 40 mg Documented by: Nicotine (Nicoderm Cq (Pbkc)) 21 mg TRANSDERM. DAILY [facility] Last Admin: 10/04/19 09:37 Dose: 21 mg Documented by: Nitroglycerin (Nitrostat) 0.4 mg SUBLINGUAL Q5M PRN PRN Reason: CARDIAC/CHEST PAIN Ondansetron HCl (Zofran) 4 mg IV Q8H PRN PRN PRN Reason: NAUSEA/VOMITING Prochlorperazine Edisylate (Compazine Iv) 5 mg IV Q4H PRN PRN PRN Reason: Breakthrough Nausea/Vomiting Psyllium Hydrophilic Mucilloid (Metamucil) 1 packet PO DAILY PRN PRN PRN Reason: Constipation Senna/Docusate Sodium (Senokot-S, Marianne-Colace) 2 tablet PO BID PRN PRN Reason: Constipation Sodium Chloride () 10 - 40 ml IV UD PRN PRN Reason: SALINE FLUSH Last Admin: 10/04/19 09:41 Dose: 10 ml Documented by: Throat Lozenges (Cepacol Sore Throat Lozenge) 1 lozenge MUCOUS MEM Q2H PRN PRN PRN Reason: SORE THROAT STROKE Vital Signs/Narrative: Vital Signs Temp Pulse Resp BP Pulse Ox 10/04/19 09:30 98.6 F 84 18 120/92 H 96 10/04/19 06:59 88 Medical Necessity - Tobacco Use Smoking Status: Heavy Smoker (>10/day) Tobacco Use: Cigarettes Assessment/Plan All Active Problems (Last Updated 04/07/18 @ 11:32 by Jaylin Montes) Acute respiratory failure with hypoxia and hypercapnia (Acute) Acute bronchospasm (Acute) Recurrent right pleural effusion (Acute) Right heart failure (Acute) Hypertensive urgency (Acute) Acute exacerbation of CHF (congestive heart failure) (Acute) COPD with acute exacerbation (Acute) Pneumonia (Acute) Impacted cerumen, right ear (Acute) Reactive airway disease (Acute) Bronchitis (Acute) 1. Acute hypoxic and hypercapnic respiratory failure d/t COPD exacerbation and possible CHF with b/l pleural effusions/Tobacco abuse/Morbid Obesity -Discussed tobacco cessation -C/w IV steroids and inhalers -Wean O2 as able -Echo with an EF of 55% and no diastolic dysfunction -No signs of infection, she is remained afebrile, rising white blood cell count secondary to steroids will discontinue IV antibiotics -C/w IV lasix BID, renal function is stable. She is down about 1200 cc we will reevaluate her Lasix tomorrow may decrease to just oral -Discussed weight loss 2. Hypertensive Urgency -Likely contributed to her above problems -C/w the lisinopril, coreg DVT: Lovenox Inpatient E&M: 96822 Subs Hosp L2
--- NOTE | 2019-10-04 19:33 | CPS ---
Pt.'s oxygenation demands have decreased; FiO2 titrated to 5L nasal cannula
[2019-10-04] MEDS: Atorvastatin Calcium 80 MG Tablet PO (21:06)
[2019-10-04] MEDS: ALPRAZolam 0.25 MG Tablet PO (23:00)
[2019-10-05] VITALS (18 sets, daily range): BP systolic 124–175; BP diastolic 57–77; PULSE 52–76; RESP 12–22; TEMP 36.4–37; O2SAT 89–96
--- NOTE | 2019-10-05 03:19 | CPS ---
Pt.'s FiO2 titrated from 5L to 6L nasal cannula; maintain pt.'s SpO2 > 88%
[2019-10-05] MEDS: 0.9% Saline Lock 10 ML Syringe IV ×6 (05:50→22:14)
[2019-10-05 06:17] LABS: Anion Gap 2 (5-15); BUN 28 mg/dL (7-18); BUN/Creat Ratio 28.3 RATIO (10-20); Calcium,Total 8.2 mg/dL (8.5-10.1); Chloride 99 mmol/L (98-107); Creatinine, Serum 0.99 mg/dL (0.55-1.02); EST Glomerular Filtration Rate 60 mL/min (>60); Est Glom Filt Rate - Afr Amer 72 mL/min (>60); Estimated Creatinine Clearance 46.24 ml/min; Glucose 140 mg/dL (74-106); Potassium 4.3 mmol/L (3.5-5.1); Sodium Level 139 mmol/L (136-145)
[2019-10-05] MEDS: Ipratropium/Albuterol Sulfate 3 ML AMPUL.NEB INHALATION ×4 (07:18→19:30)
[2019-10-05] MEDS: Carvedilol 12.5 MG Tablet PO ×2 (09:02→21:52)
[2019-10-05] MEDS: Aspirin 81 MG TAB.CHEW PO (09:02)
[2019-10-05] MEDS: Famotidine 20 MG Tablet PO ×2 (09:03→21:52)
[2019-10-05] MEDS: Lisinopril 20 MG Tablet PO (09:03)
[2019-10-05] MEDS: Enoxaparin 40 MG/0.4 ML Syringe SC (09:04)
[2019-10-05] MEDS: Furosemide 40 MG/4 ML Vial IV (09:04)
--- NOTE | 2019-10-05 11:11 | PCM.PN.HOSP ---
Patient Problems: Active and Suspected Problems (Last Updated 04/07/18 @ 11:32 by Jaylin Montes) Acute respiratory failure with hypoxia and hypercapnia (Acute) Acute bronchospasm (Acute) Recurrent right pleural effusion (Acute) Right heart failure (Acute) Hypertensive urgency (Acute) Acute exacerbation of CHF (congestive heart failure) (Acute) COPD with acute exacerbation (Acute) Pneumonia (Acute) Subjective: Feeling better, breathing a little bit easier. She was able to wear her BiPAP last night with the help of low-dose Xanax Vitals/I&O's: Vital Signs Temp Pulse Resp BP Pulse Ox 98.6 F 63 16 139/65 H 94 10/05/19 08:51 10/05/19 08:51 10/05/19 08:51 10/05/19 08:51 10/05/19 08:51 Oxygen Flow Rate (L/min) 5 Oxygen Delivery Method Nasal Cannula Weight: 247 lb 2.211 oz Body Mass Index (BMI) 43.9 Intake and Output for Last 24 Hours 10/03/19 10/04/19 10/05/19 23:59 23:59 23:59 Intake Total 950.75 / 950.75 1419.5 / 1419.5 0 / 0 Output Total 2250 / 2250 2380 / 2380 0 / 0 Balance -1299.25 / -1299.25 -960.5 / -960.5 0 / 0 General: Alert, Oriented x3, Cooperative, No apparent distress HEENT: Atraumatic, PERRLA, EOMI, Normocephalic Oral: Moist Mucosa Neck: Supple, No JVD Lungs: Diminished, no rhonchi, mild wheezing Cardiovascular: Regular rate, Regular Rhythm, Normal S1, Normal S2, No murmurs Abdomen: Soft, Non Tender, Non-Distended, No Hepato-splenomegaly Extremities: Capillary Refill Less than 3 Seconds, Edema 1+ Skin: No rashes, No breakdown Neurological: Neuro grossly intact, Sensory exam intact to light touch and pain Psych/Mental Status: Normal Affect, Appropriate Microbiology Past 72 Hours 10/02/19 18:05 Urine, Random Urine Culture - Final Culture exhibits no growth. 10/02/19 17:55 Blood Culture (Wb) - Right Hand Blood Culture - Preliminary No growth in 48 hours. 10/02/19 17:25 Blood Culture (Wb) - Left Hand Blood Culture - Preliminary No growth in 48 hours. 10/02/19 23:18 Mucosa - Nasopharyngeal Respiratory Panel (PCR) - Final 10/02/19 18:05 Urine, Random Streptococcus pneumoniae Antigen (M - Final 10/02/19 18:05 Urine, Random Legionella Antigen - Final Laboratory Results 10/05/19 05:38: Sodium 139, Potassium 4.3, Chloride 99, Carbon Dioxide 38.0 H, Anion Gap 2 L, BUN 28 H, Creatinine 0.99, Estim Creat Clear Calc 46.24, Est GFR (MDRD) Af Amer 72, Est GFR (MDRD) Non-Af 60, BUN/Creatinine Ratio 28.3 H, Glucose 140 H, Calcium 8.2 L Current Medications Acetaminophen (Tylenol) 650 mg PO Q6H PRN PRN PRN Reason: Pain Score 1-10/Temp > 100.7 F Al Hydroxide/Mg Hydroxide (Mylanta Ii) 30 ml PO Q6H PRN PRN PRN Reason: Gastric Burning Albuterol Sulfate (Ventolin Aerosols) 2.5 mg INHALATION Q2H PRN PRN PRN Reason: Dyspnea, wheezing Albuterol/Ipratropium (Duoneb) 3 ml INHALATION Q4HWA.RT [facility] Last Admin: 10/05/19 07:18 Dose: 3 ml Documented by: Alprazolam (Xanax) 0.25 mg PO QHS PRN PRN PRN Reason: ANXIETY Last Admin: 10/04/19 23:00 Dose: 0.25 mg Documented by: Aspirin (Aspirin, Baby) 81 mg PO DAILY@0800 [facility] Last Admin: 10/05/19 09:02 Dose: 81 mg Documented by: Atorvastatin Calcium (Lipitor) 80 mg PO QHS [facility] Last Admin: 10/04/19 21:06 Dose: 80 mg Documented by: Carvedilol (Coreg) 12.5 mg PO BID [facility] Last Admin: 10/05/19 09:02 Dose: 12.5 mg Documented by: Enoxaparin Sodium (Lovenox) 40 mg SC DAILY [facility] Last Admin: 10/05/19 09:04 Dose: 40 mg Documented by: Famotidine (Pepcid) 20 mg PO BID [facility] Last Admin: 10/05/19 09:03 Dose: 20 mg Documented by: Furosemide (Lasix) 40 mg IV BID@1000,1800 [facility] Last Admin: 10/05/19 09:04 Dose: 40 mg Documented by: Guaifenesin (Robitussin) 10 ml PO Q4H PRN PRN PRN Reason: COUGH Hydralazine HCl (Apresoline Iv) 10 mg IV Q4H PRN PRN PRN Reason: SBP > 160 Sodium Chloride () 250 mls @ 15 mls/hr IV .[id number] PRN PRN Reason: Saline Flush Last Infusion: 10/04/19 08:00 Dose: 0 mls/hr Documented by: Sodium Chloride () 250 mls @ 15 mls/hr IV .[id number] PRN PRN Reason: Additional IVPB Infusion Lisinopril (Zestril) 20 mg PO DAILY [facility] Last Admin: 10/05/19 09:03 Dose: 20 mg Documented by: Magnesium Hydroxide (Milk Of Magnesia) 30 ml PO DAILY PRN PRN PRN Reason: Constipation Melatonin (Melatonin) 3 mg PO QHS PRN PRN PRN Reason: INSOMNIA Methylprednisolone (Solu-Medrol) 40 mg IV Q8 [facility] Last Admin: 10/05/19 05:52 Dose: 40 mg Documented by: Nicotine (Nicoderm Cq (Pbkc)) 21 mg TRANSDERM. DAILY [facility] Last Admin: 10/05/19 09:03 Dose: 21 mg Documented by: Nitroglycerin (Nitrostat) 0.4 mg SUBLINGUAL Q5M PRN PRN Reason: CARDIAC/CHEST PAIN Ondansetron HCl (Zofran) 4 mg IV Q8H PRN PRN PRN Reason: NAUSEA/VOMITING Prochlorperazine Edisylate (Compazine Iv) 5 mg IV Q4H PRN PRN PRN Reason: Breakthrough Nausea/Vomiting Psyllium Hydrophilic Mucilloid (Metamucil) 1 packet PO DAILY PRN PRN PRN Reason: Constipation Senna/Docusate Sodium (Senokot-S, Marianne-Colace) 2 tablet PO BID PRN PRN Reason: Constipation Sodium Chloride () 10 - 40 ml IV UD PRN PRN Reason: SALINE FLUSH Last Admin: 10/05/19 09:11 Dose: 20 ml Documented by: Throat Lozenges (Cepacol Sore Throat Lozenge) 1 lozenge MUCOUS MEM Q2H PRN PRN PRN Reason: SORE THROAT STROKE Vital Signs/Narrative: Vital Signs Temp Pulse Resp BP Pulse Ox 10/05/19 08:51 98.6 F 63 16 139/65 H 94 10/05/19 07:20 60 10/05/19 07:18 76 18 90 Medical Necessity - Tobacco Use Smoking Status: Heavy Smoker (>10/day) Tobacco Use: Cigarettes Assessment/Plan All Active Problems (Last Updated 04/07/18 @ 11:32 by Jaylin Montes) Acute respiratory failure with hypoxia and hypercapnia (Acute) Acute bronchospasm (Acute) Recurrent right pleural effusion (Acute) Right heart failure (Acute) Hypertensive urgency (Acute) Acute exacerbation of CHF (congestive heart failure) (Acute) COPD with acute exacerbation (Acute) Pneumonia (Acute) Impacted cerumen, right ear (Acute) Reactive airway disease (Acute) Bronchitis (Acute) 1. Acute hypoxic and hypercapnic respiratory failure d/t COPD exacerbation and possible CHF with b/l pleural effusions/Tobacco abuse/Morbid Obesity -Discussed tobacco cessation -C/w IV steroids and inhalers -Wean O2 as able -Echo with an EF of 55% and no diastolic dysfunction -Antibiotics were discontinued 10/04/2019 -We will discontinue her IV Lasix and transition her to oral Lasix starting tomorrow. She is about 2 L negative -Discussed weight loss 2. Hypertensive Urgency -Likely contributed to her above problems -C/w the lisinopril, coreg, her blood pressure systolic is on the 120s to 130s DVT: Lovenox Inpatient E&M: 13826 Subs Hosp L2
--- NOTE | 2019-10-05 13:58 | PN_ITS ---
Patient Problems: Active and Suspected Problems (Last Updated 04/07/18 @ 11:32 by Jaylin Montes) Acute respiratory failure with hypoxia and hypercapnia (Acute) Acute bronchospasm (Acute) Recurrent right pleural effusion (Acute) Right heart failure (Acute) Hypertensive urgency (Acute) Acute exacerbation of CHF (congestive heart failure) (Acute) COPD with acute exacerbation (Acute) Pneumonia (Acute) Subjective: Patient did well overnight. Patient's oxygen demands continue to improve and patient reports subjective improvement in dyspnea. No cough is been reported. Patient is not reporting any pain. Patient states her legs feel less tight. - Physical Exam Vitals/I&O's: Vital Signs Temp Pulse Resp BP Pulse Ox 37.0 C 65 16 139/65 H 94 10/05/19 08:51 10/05/19 11:13 10/05/19 11:13 10/05/19 08:51 10/05/19 08:51 Oxygen Flow Rate (L/min) 5 Oxygen Delivery Method Nasal Cannula Weight: 112.1 kg Body Mass Index (BMI) 43.9 Intake and Output for Last 24 Hours 10/03/19 10/04/19 10/05/19 23:59 23:59 23:59 Intake Total 950.75 / 950.75 1419.5 / 1419.5 600 / 600 Output Total 2250 / 2250 2380 / 2380 1500 / 1500 Balance -1299.25 / -1299.25 -960.5 / -960.5 -900 / -900 General: Alert, Oriented x3, Cooperative, No apparent distress, Well developed, Well nourished, - - Morbidly obese. Speaking in full sentences. HEENT: Atraumatic, PERRLA, EOMI, Normocephalic, - - No scleral icterus or injection noted Oral: Moist Mucosa, No Gingival or Mucosal Lesions/ Ulcerations Neck: Supple, No JVD, No Nodes, Trachea Midline Lungs: No rhonchi, No wheeze, Diminished, Rales - Right greater than left base Cardiovascular: Regular rate, Regular Rhythm, Normal S1, Normal S2, No murmurs, No rub noted, No Gallop Abdomen: Bowel Sounds Present, Soft, Non Tender, Non-Distended, Obese Extremities: No clubbing, No cyanosis, Edema - 3+ lower extremity Skin: No rashes, No breakdown Musculoskeletal: No Tenderness to Palpation of Joints or Extremities Lymphatic: No Cervical, Supraclavicular, or Inguinal Adenopathy Neurological: Cranial nerves II-XII grossly intact, Neuro grossly intact, Motor Exam 5/5 strength throughout Psych/Mental Status: Alert and oriented to time, place, person, mood and affect Microbiology Past 72 Hours 10/02/19 18:05 Urine, Random Urine Culture - Final Culture exhibits no growth. 10/02/19 17:55 Blood Culture (Wb) - Right Hand Blood Culture - Preliminary No growth in 48 hours. 10/02/19 17:25 Blood Culture (Wb) - Left Hand Blood Culture - Preliminary No growth in 48 hours. 10/02/19 23:18 Mucosa - Nasopharyngeal Respiratory Panel (PCR) - Final 10/02/19 18:05 Urine, Random Streptococcus pneumoniae Antigen (M - Final 10/02/19 18:05 Urine, Random Legionella Antigen - Final Laboratory Results 10/05/19 05:38: Sodium 139, Potassium 4.3, Chloride 99, Carbon Dioxide 38.0 H, Anion Gap 2 L, BUN 28 H, Creatinine 0.99, Estim Creat Clear Calc 46.24, Est GFR (MDRD) Af Amer 72, Est GFR (MDRD) Non-Af 60, BUN/Creatinine Ratio 28.3 H, Glucose 140 H, Calcium 8.2 L Current Medications Acetaminophen (Tylenol) 650 mg PO Q6H PRN PRN PRN Reason: Pain Score 1-10/Temp > 100.7 F Al Hydroxide/Mg Hydroxide (Mylanta Ii) 30 ml PO Q6H PRN PRN PRN Reason: Gastric Burning Albuterol Sulfate (Ventolin Aerosols) 2.5 mg INHALATION Q2H PRN PRN PRN Reason: Dyspnea, wheezing Albuterol/Ipratropium (Duoneb) 3 ml INHALATION Q4HWA.RT [facility] Last Admin: 10/05/19 11:13 Dose: 3 ml Documented by: Alprazolam (Xanax) 0.25 mg PO QHS PRN PRN PRN Reason: ANXIETY Last Admin: 10/04/19 23:00 Dose: 0.25 mg Documented by: Aspirin (Aspirin, Baby) 81 mg PO DAILY@0800 [facility] Last Admin: 10/05/19 09:02 Dose: 81 mg Documented by: Atorvastatin Calcium (Lipitor) 80 mg PO QHS [facility] Last Admin: 10/04/19 21:06 Dose: 80 mg Documented by: Carvedilol (Coreg) 12.5 mg PO BID [facility] Last Admin: 10/05/19 09:02 Dose: 12.5 mg Documented by: Enoxaparin Sodium (Lovenox) 40 mg SC DAILY [facility] Last Admin: 10/05/19 09:04 Dose: 40 mg Documented by: Famotidine (Pepcid) 20 mg PO BID [facility] Last Admin: 10/05/19 09:03 Dose: 20 mg Documented by: Furosemide (Lasix) 40 mg PO DAILY [facility] Guaifenesin (Robitussin) 10 ml PO Q4H PRN PRN PRN Reason: COUGH Hydralazine HCl (Apresoline Iv) 10 mg IV Q4H PRN PRN PRN Reason: SBP > 160 Sodium Chloride () 250 mls @ 15 mls/hr IV .[id number] PRN PRN Reason: Saline Flush Last Infusion: 10/04/19 08:00 Dose: 0 mls/hr Documented by: Sodium Chloride () 250 mls @ 15 mls/hr IV .[id number] PRN PRN Reason: Additional IVPB Infusion Lisinopril (Zestril) 20 mg PO DAILY [facility] Last Admin: 10/05/19 09:03 Dose: 20 mg Documented by: Magnesium Hydroxide (Milk Of Magnesia) 30 ml PO DAILY PRN PRN PRN Reason: Constipation Melatonin (Melatonin) 3 mg PO QHS PRN PRN PRN Reason: INSOMNIA Methylprednisolone (Solu-Medrol) 40 mg IV Q8 [facility] Last Admin: 10/05/19 05:52 Dose: 40 mg Documented by: Nicotine (Nicoderm Cq (Pbkc)) 21 mg TRANSDERM. DAILY [facility] Last Admin: 10/05/19 09:03 Dose: 21 mg Documented by: Nitroglycerin (Nitrostat) 0.4 mg SUBLINGUAL Q5M PRN PRN Reason: CARDIAC/CHEST PAIN Ondansetron HCl (Zofran) 4 mg IV Q8H PRN PRN PRN Reason: NAUSEA/VOMITING Prochlorperazine Edisylate (Compazine Iv) 5 mg IV Q4H PRN PRN PRN Reason: Breakthrough Nausea/Vomiting Psyllium Hydrophilic Mucilloid (Metamucil) 1 packet PO DAILY PRN PRN PRN Reason: Constipation Senna/Docusate Sodium (Senokot-S, Marianne-Colace) 2 tablet PO BID PRN PRN Reason: Constipation Sodium Chloride () 10 - 40 ml IV UD PRN PRN Reason: SALINE FLUSH Last Admin: 10/05/19 09:11 Dose: 20 ml Documented by: Throat Lozenges (Cepacol Sore Throat Lozenge) 1 lozenge MUCOUS MEM Q2H PRN PRN PRN Reason: SORE THROAT Medical Necessity - Tobacco Use Smoking Status: Heavy Smoker (>10/day) Tobacco Use: Cigarettes Assessment/Plan All Active Problems (Last Updated 04/07/18 @ 11:32 by Jaylin Montes) Acute respiratory failure with hypoxia and hypercapnia (Acute) Acute bronchospasm (Acute) Recurrent right pleural effusion (Acute) Right heart failure (Acute) Hypertensive urgency (Acute) Acute exacerbation of CHF (congestive heart failure) (Acute) COPD with acute exacerbation (Acute) Pneumonia (Acute) Impacted cerumen, right ear (Acute) Reactive airway disease (Acute) Bronchitis (Acute) RECOMMENDATIONS: 1. Continue BiPAP with sleep as tolerated 2. Continue scheduled bronchodilator therapy. 3. Continue IV steroids. 4. Increase activity as tolerated 5. Continue scheduled IV Lasix as tolerated by renal function and hemodynamics. 6. Continue nicotine replacement therapy. 7. Encourage incentive spirometer use and mobilize patient as tolerated. IMPRESSIONS: 1. Acute combined respiratory failure Patient appears to be responding well to diuretic therapy. Clinical suspicion for hypertensive urgency with a component of CHF with bilateral pleural effusions noted on imaging. Patient continues to have good diuresis, but inaccurate I's and O's secondary to voids not measured. Continue with diuresis as tolerated. We will continue with Solu-Medrol for now, but likely try to wean this over the next 24 to 48 hours. Patient would benefit from outpatient PFT for quantification clarification of lung function. 2. Suspected COPD with exacerbation/history of nicotine dependency As noted above, plan to continue current supportive measures. Smoking cessation counseling was provided. Ideally, the patient should follow-up in the pulmonary medicine clinic after discharge so that baseline pulmonary function studies can be obtained. Based on the results of testing, the patient may be a candidate for for the initiation of a maintenance inhaler regimen to assist with alleviating her chronic shortness of breath symptoms. Nicotine replacement therapy will be utilized while the patient is admitted to the hospital. 3. Hypertensive urgency I do suspect that the patient's elevated blood pressures noted on presentation are likely contributing to her presenting symptoms. Agree with aggressive blood pressure control as ordered. 4. Morbid obesity/suspected sleep disordered breathing Complicates care, management, recovery and prognosis. As noted above, I would recommend outpatient pulmonary follow-up within 2 weeks of discharge from the hospital. Patient should continue nocturnal BiPAP as tolerated. Patient would benefit from outpatient PSG. Inpatient E&M: [id number] Subs Hosp L2
[2019-10-05] MEDS: hydrALAZINE 20 MG/ML Vial 10 MG IV ×2 (15:12→22:14)
[2019-10-05] MEDS: MELATONIN 3 MG TABLET PO (21:52)
[2019-10-05] MEDS: Atorvastatin Calcium 80 MG Tablet PO (21:52)
[2019-10-05] MEDS: ALPRAZolam 0.25 MG Tablet PO (22:20)
[2019-10-06] VITALS (20 sets, daily range): BP systolic 145–178; BP diastolic 68–77; PULSE 38–79; RESP 15–22; TEMP 36.6–37.2; O2SAT 90–94
--- NOTE | 2019-10-06 00:05 | NURSING ---
Pt. up to bathroom. Back to bed and states she can no longer tolerate Bipap. She is unable to sleep with it and feels claustrophobic. She wore it for 1 hour tonight.
[2019-10-06] MEDS: guaiFENesin 10 ML UDC (200MG/10ML) PO (02:49)
[2019-10-06] MEDS: Ipratropium/Albuterol Sulfate 3 ML AMPUL.NEB INHALATION ×5 (03:02→19:16)
[2019-10-06] MEDS: 0.9% Saline Lock 10 ML Syringe IV ×4 (06:12→17:04)
[2019-10-06 06:29] LABS: Anion Gap 0 (5-15); BUN 24 mg/dL (7-18); Calcium,Total 8.3 mg/dL (8.5-10.1); Chloride 103 mmol/L (98-107); Creatinine, Serum 0.86 mg/dL (0.55-1.02); EST Glomerular Filtration Rate 71 mL/min (>60); Est Glom Filt Rate - Afr Amer 85 mL/min (>60); Estimated Creatinine Clearance 53.23 ml/min; Glucose 135 mg/dL (74-106); Potassium 4.3 mmol/L (3.5-5.1); Sodium Level 143 mmol/L (136-145)
--- NOTE | 2019-10-06 08:44 | PCM.PN.PUL ---
Patient Problems: Active and Suspected Problems (Last Updated 04/07/18 @ 11:32 by Jaylin Montes) Acute respiratory failure with hypoxia and hypercapnia (Acute) Acute bronchospasm (Acute) Recurrent right pleural effusion (Acute) Right heart failure (Acute) Hypertensive urgency (Acute) Acute exacerbation of CHF (congestive heart failure) (Acute) COPD with acute exacerbation (Acute) Pneumonia (Acute) Subjective: Patient did well overnight. Patient did refuse BiPAP therapy while sleeping. Patient diuresed yesterday and feels subjectively improved compared to yesterday despite requiring up to 6 L to maintain saturations. Patient feels her lower extremity edema and discomfort are improving. - Physical Exam Vitals/I&O's: Vital Signs Temp Pulse Resp BP Pulse Ox 36.8 C 69 18 169/71 H 92 10/06/19 08:29 10/06/19 08:29 10/06/19 08:29 10/06/19 08:29 10/06/19 08:29 Oxygen Flow Rate (L/min) 6 Oxygen Delivery Method Nasal Cannula Weight: 110.6 kg Body Mass Index (BMI) 43.9 Intake and Output for Last 24 Hours 10/04/19 10/05/19 10/06/19 23:59 23:59 23:59 Intake Total 1419.5 / 1419.5 1420 / 1420 0 / 0 Output Total 2380 / 2380 5600 / 5600 725 / 725 Balance -960.5 / -960.5 -4180 / -4180 -725 / -725 General: Alert, Oriented x3, Cooperative, No apparent distress, Well developed, Well nourished, - - No conversational dyspnea. Morbidly obese. HEENT: Atraumatic, PERRLA, EOMI, Normocephalic, - - No scleral icterus or injection noted Oral: Moist Mucosa, No Gingival or Mucosal Lesions/ Ulcerations Neck: Supple, No Nodes, Trachea Midline, JVD, Right Lungs: No rhonchi, No wheeze, Diminished, Rales - Posterior bases, - - Symmetric expansion. Cardiovascular: Regular rate, Regular Rhythm, Normal S1, Normal S2, No murmurs, No rub noted, No Gallop Abdomen: Bowel Sounds Present, Soft, Non Tender, Non-Distended, Obese Extremities: No clubbing, No cyanosis, Edema - Improving Skin: No rashes, No breakdown Musculoskeletal: No Tenderness to Palpation of Joints or Extremities Lymphatic: No Cervical, Supraclavicular, or Inguinal Adenopathy Neurological: Cranial nerves II-XII grossly intact, Neuro grossly intact, Motor Exam 5/5 strength throughout Psych/Mental Status: Alert and oriented to time, place, person, mood and affect Microbiology Past 72 Hours 10/02/19 18:05 Urine, Random Urine Culture - Final Culture exhibits no growth. 10/02/19 17:55 Blood Culture (Wb) - Right Hand Blood Culture - Preliminary No growth in 48 hours. 10/02/19 17:25 Blood Culture (Wb) - Left Hand Blood Culture - Preliminary No growth in 48 hours. Laboratory Results 10/06/19 05:55: Sodium 143, Potassium 4.3, Chloride 103, Carbon Dioxide 40.0 H, Anion Gap 0 L, BUN 24 H, Creatinine 0.86, Estim Creat Clear Calc 53.23, Est GFR (MDRD) Af Amer 85, Est GFR (MDRD) Non-Af 71, BUN/Creatinine Ratio 28.0 H, Glucose 135 H, Calcium 8.3 L Current Medications Acetaminophen (Tylenol) 650 mg PO Q6H PRN PRN PRN Reason: Pain Score 1-10/Temp > 100.7 F Al Hydroxide/Mg Hydroxide (Mylanta Ii) 30 ml PO Q6H PRN PRN PRN Reason: Gastric Burning Albuterol Sulfate (Ventolin Aerosols) 2.5 mg INHALATION Q2H PRN PRN PRN Reason: Dyspnea, wheezing Albuterol/Ipratropium (Duoneb) 3 ml INHALATION Q4HWA.RT [facility] Last Admin: 10/06/19 07:07 Dose: 3 ml Documented by: Alprazolam (Xanax) 0.25 mg PO QHS PRN PRN PRN Reason: ANXIETY Last Admin: 10/05/19 22:20 Dose: 0.25 mg Documented by: Aspirin (Aspirin, Baby) 81 mg PO DAILY@0800 [facility] Last Admin: 10/05/19 09:02 Dose: 81 mg Documented by: Atorvastatin Calcium (Lipitor) 80 mg PO QHS [facility] Last Admin: 10/05/19 21:52 Dose: 80 mg Documented by: Carvedilol (Coreg) 12.5 mg PO BID [facility] Last Admin: 10/05/19 21:52 Dose: 12.5 mg Documented by: Enoxaparin Sodium (Lovenox) 40 mg SC DAILY [facility] Last Admin: 10/05/19 09:04 Dose: 40 mg Documented by: Famotidine (Pepcid) 20 mg PO BID [facility] Last Admin: 10/05/19 21:52 Dose: 20 mg Documented by: Furosemide (Lasix) 40 mg PO DAILY [facility] Guaifenesin (Robitussin) 10 ml PO Q4H PRN PRN PRN Reason: COUGH Last Admin: 10/06/19 02:49 Dose: 10 ml Documented by: Hydralazine HCl (Apresoline Iv) 10 mg IV Q4H PRN PRN PRN Reason: SBP > 160 Last Admin: 10/05/19 22:14 Dose: 10 mg Documented by: Sodium Chloride () 250 mls @ 15 mls/hr IV .[id number] PRN PRN Reason: Saline Flush Last Infusion: 10/04/19 08:00 Dose: 0 mls/hr Documented by: Sodium Chloride () 250 mls @ 15 mls/hr IV .[id number] PRN PRN Reason: Additional IVPB Infusion Lisinopril (Zestril) 20 mg PO DAILY [facility] Last Admin: 10/05/19 09:03 Dose: 20 mg Documented by: Magnesium Hydroxide (Milk Of Magnesia) 30 ml PO DAILY PRN PRN PRN Reason: Constipation Melatonin (Melatonin) 3 mg PO QHS PRN PRN PRN Reason: INSOMNIA Last Admin: 10/05/19 21:52 Dose: 3 mg Documented by: Methylprednisolone (Solu-Medrol) 40 mg IV Q8 [facility] Last Admin: 10/06/19 06:12 Dose: 40 mg Documented by: Nicotine (Nicoderm Cq (Pbkc)) 21 mg TRANSDERM. DAILY [facility] Last Admin: 10/05/19 09:03 Dose: 21 mg Documented by: Nitroglycerin (Nitrostat) 0.4 mg SUBLINGUAL Q5M PRN PRN Reason: CARDIAC/CHEST PAIN Ondansetron HCl (Zofran) 4 mg IV Q8H PRN PRN PRN Reason: NAUSEA/VOMITING Prochlorperazine Edisylate (Compazine Iv) 5 mg IV Q4H PRN PRN PRN Reason: Breakthrough Nausea/Vomiting Psyllium Hydrophilic Mucilloid (Metamucil) 1 packet PO DAILY PRN PRN PRN Reason: Constipation Senna/Docusate Sodium (Senokot-S, Marianne-Colace) 2 tablet PO BID PRN PRN Reason: Constipation Sodium Chloride () 10 - 40 ml IV UD PRN PRN Reason: SALINE FLUSH Last Admin: 10/06/19 06:12 Dose: 10 ml Documented by: Throat Lozenges (Cepacol Sore Throat Lozenge) 1 lozenge MUCOUS MEM Q2H PRN PRN PRN Reason: SORE THROAT Medical Necessity - Tobacco Use Smoking Status: Heavy Smoker (>10/day) Tobacco Use: Cigarettes Assessment/Plan All Active Problems (Last Updated 04/07/18 @ 11:32 by Jaylin Montes) Acute respiratory failure with hypoxia and hypercapnia (Acute) Acute bronchospasm (Acute) Recurrent right pleural effusion (Acute) Right heart failure (Acute) Hypertensive urgency (Acute) Acute exacerbation of CHF (congestive heart failure) (Acute) COPD with acute exacerbation (Acute) Pneumonia (Acute) Impacted cerumen, right ear (Acute) Reactive airway disease (Acute) Bronchitis (Acute) RECOMMENDATIONS: 1. Continue BiPAP with sleep as tolerated 2. Continue scheduled bronchodilator therapy. 3. Transition to p.o. steroids and complete 5-day burst 4. Increase activity as tolerated 5. Continue scheduled IV Lasix as tolerated by renal function and hemodynamics. 6. Continue nicotine replacement therapy. 7. Okay to discharge once able to ambulate with acceptable saturations on 6 L or less IMPRESSIONS: 1. Acute combined respiratory failure Patient appears to be responding well to diuretic therapy. Clinical suspicion for hypertensive urgency with a component of CHF with bilateral pleural effusions noted on imaging. Patient continues to have good diuresis and renal function improved after 4 L of diuresis. This would be suggestive of improved Starling forces from volume optimization. Continue with diuresis as tolerated. We will transition patient to prednisone to complete a 5-day burst. Doubt steroids leading to most of improvement. Patient would benefit from outpatient PFT for quantification clarification of lung function. 2. Suspected COPD with exacerbation/history of nicotine dependency As noted above, plan to continue current supportive measures. Smoking cessation counseling was provided. Ideally, the patient should follow-up in the pulmonary medicine clinic after discharge so that baseline pulmonary function studies can be obtained. Based on the results of testing, the patient may be a candidate for for the initiation of a maintenance inhaler regimen to assist with alleviating her chronic shortness of breath symptoms. Nicotine replacement therapy will be utilized while the patient is admitted to the hospital. 3. Hypertensive urgency I do suspect that the patient's elevated blood pressures noted on presentation are likely contributing to her presenting symptoms. Agree with aggressive blood pressure control as ordered. 4. Morbid obesity/suspected sleep disordered breathing Complicates care, management, recovery and prognosis. As noted above, I would recommend outpatient pulmonary follow-up within 2 weeks of discharge from the hospital. Patient should continue nocturnal BiPAP as tolerated. Patient would benefit from outpatient PSG. Inpatient E&M: 75020 Subs Hosp L2
[2019-10-06] MEDS: Carvedilol 12.5 MG Tablet PO ×2 (08:51→21:45)
[2019-10-06] MEDS: Aspirin 81 MG TAB.CHEW PO (08:51)
[2019-10-06] MEDS: Famotidine 20 MG Tablet PO ×2 (08:51→21:45)
[2019-10-06] MEDS: Enoxaparin 40 MG/0.4 ML Syringe SC (08:51)
[2019-10-06] MEDS: Lisinopril 20 MG Tablet PO (08:51)
[2019-10-06] MEDS: Furosemide 40 MG/4 ML Vial IV ×2 (09:27→17:05)
--- NOTE | 2019-10-06 11:13 | PN_ITS ---
Patient Problems: Active and Suspected Problems (Last Updated 04/07/18 @ 11:32 by Jaylin Montes) Acute respiratory failure with hypoxia and hypercapnia (Acute) Acute bronchospasm (Acute) Recurrent right pleural effusion (Acute) Right heart failure (Acute) Hypertensive urgency (Acute) Acute exacerbation of CHF (congestive heart failure) (Acute) COPD with acute exacerbation (Acute) Pneumonia (Acute) Subjective: Feels better, states that her lower extremity edema has improved. She still had some anxiety last night wearing the BiPAP and therefore did not wear it for more than an hour and had an increased oxygen requirement this morning. Vitals/I&O's: Vital Signs Temp Pulse Resp BP Pulse Ox 98.2 F 69 18 169/71 H 92 10/06/19 08:29 10/06/19 08:29 10/06/19 08:29 10/06/19 08:29 10/06/19 08:29 Oxygen Flow Rate (L/min) 6 Oxygen Delivery Method Nasal Cannula Weight: 243 lb 13.3 oz Body Mass Index (BMI) 43.9 Intake and Output for Last 24 Hours 10/04/19 10/05/19 10/06/19 23:59 23:59 23:59 Intake Total 1419.5 / 1419.5 1420 / 1420 0 / 0 Output Total 2380 / 2380 5600 / 5600 725 / 725 Balance -960.5 / -960.5 -4180 / -4180 -725 / -725 General: Alert, Oriented x3, Cooperative, No apparent distress HEENT: Atraumatic, PERRLA, EOMI, Normocephalic Oral: Moist Mucosa Neck: Supple, No JVD Lungs: Diminished, no rhonchi, no wheezing, no rales Cardiovascular: Regular rate, Regular Rhythm, Normal S1, Normal S2, No murmurs Abdomen: Soft, Non Tender, Non-Distended, No Hepato-splenomegaly Extremities: Capillary Refill Less than 3 Seconds, Edema 1+ Skin: No rashes, No breakdown Neurological: Neuro grossly intact, Sensory exam intact to light touch and pain Psych/Mental Status: Normal Affect, Appropriate Microbiology Past 72 Hours 10/02/19 18:05 Urine, Random Urine Culture - Final Culture exhibits no growth. 10/02/19 17:55 Blood Culture (Wb) - Right Hand Blood Culture - Preliminary No growth in 48 hours. 10/02/19 17:25 Blood Culture (Wb) - Left Hand Blood Culture - Preliminary No growth in 48 hours. Laboratory Results 10/06/19 05:55: Sodium 143, Potassium 4.3, Chloride 103, Carbon Dioxide 40.0 H, Anion Gap 0 L, BUN 24 H, Creatinine 0.86, Estim Creat Clear Calc 53.23, Est GFR (MDRD) Af Amer 85, Est GFR (MDRD) Non-Af 71, BUN/Creatinine Ratio 28.0 H, Glucose 135 H, Calcium 8.3 L Current Medications Acetaminophen (Tylenol) 650 mg PO Q6H PRN PRN PRN Reason: Pain Score 1-10/Temp > 100.7 F Al Hydroxide/Mg Hydroxide (Mylanta Ii) 30 ml PO Q6H PRN PRN PRN Reason: Gastric Burning Albuterol Sulfate (Ventolin Aerosols) 2.5 mg INHALATION Q2H PRN PRN PRN Reason: Dyspnea, wheezing Albuterol/Ipratropium (Duoneb) 3 ml INHALATION Q4HWA.RT [facility] Last Admin: 10/06/19 07:07 Dose: 3 ml Documented by: Alprazolam (Xanax) 0.25 mg PO QHS PRN PRN PRN Reason: ANXIETY Last Admin: 10/05/19 22:20 Dose: 0.25 mg Documented by: Aspirin (Aspirin, Baby) 81 mg PO DAILY@0800 [facility] Last Admin: 10/06/19 08:51 Dose: 81 mg Documented by: Atorvastatin Calcium (Lipitor) 80 mg PO QHS [facility] Last Admin: 10/05/19 21:52 Dose: 80 mg Documented by: Carvedilol (Coreg) 12.5 mg PO BID [facility] Last Admin: 10/06/19 08:51 Dose: 12.5 mg Documented by: Enoxaparin Sodium (Lovenox) 40 mg SC DAILY [facility] Last Admin: 10/06/19 08:51 Dose: 40 mg Documented by: Famotidine (Pepcid) 20 mg PO BID [facility] Last Admin: 10/06/19 08:51 Dose: 20 mg Documented by: Furosemide (Lasix) 40 mg PO DAILY [facility] Last Admin: 10/06/19 08:58 Dose: Not Given Documented by: Furosemide (Lasix) 40 mg IV X1 ONE Stop: 10/06/19 18:01 Guaifenesin (Robitussin) 10 ml PO Q4H PRN PRN PRN Reason: COUGH Last Admin: 10/06/19 02:49 Dose: 10 ml Documented by: Hydralazine HCl (Apresoline Iv) 10 mg IV Q4H PRN PRN PRN Reason: SBP > 160 Last Admin: 10/05/19 22:14 Dose: 10 mg Documented by: Sodium Chloride () 250 mls @ 15 mls/hr IV .[id number] PRN PRN Reason: Saline Flush Last Infusion: 10/04/19 08:00 Dose: 0 mls/hr Documented by: Sodium Chloride () 250 mls @ 15 mls/hr IV .[id number] PRN PRN Reason: Additional IVPB Infusion Lisinopril (Zestril) 20 mg PO DAILY [facility] Last Admin: 10/06/19 08:51 Dose: 20 mg Documented by: Magnesium Hydroxide (Milk Of Magnesia) 30 ml PO DAILY PRN PRN PRN Reason: Constipation Melatonin (Melatonin) 3 mg PO QHS PRN PRN PRN Reason: INSOMNIA Last Admin: 10/05/19 21:52 Dose: 3 mg Documented by: Nicotine (Nicoderm Cq (Pbkc)) 21 mg TRANSDERM. DAILY [facility] Last Admin: 10/06/19 08:52 Dose: 21 mg Documented by: Nitroglycerin (Nitrostat) 0.4 mg SUBLINGUAL Q5M PRN PRN Reason: CARDIAC/CHEST PAIN Ondansetron HCl (Zofran) 4 mg IV Q8H PRN PRN PRN Reason: NAUSEA/VOMITING Prednisone () 40 mg PO DAILY@0800 [facility] Stop: 10/10/19 08:01 Prochlorperazine Edisylate (Compazine Iv) 5 mg IV Q4H PRN PRN PRN Reason: Breakthrough Nausea/Vomiting Psyllium Hydrophilic Mucilloid (Metamucil) 1 packet PO DAILY PRN PRN PRN Reason: Constipation Senna/Docusate Sodium (Senokot-S, Marianne-Colace) 2 tablet PO BID PRN PRN Reason: Constipation Sodium Chloride () 10 - 40 ml IV UD PRN PRN Reason: SALINE FLUSH Last Admin: 10/06/19 09:28 Dose: 20 ml Documented by: Throat Lozenges (Cepacol Sore Throat Lozenge) 1 lozenge MUCOUS MEM Q2H PRN PRN PRN Reason: SORE THROAT STROKE Vital Signs/Narrative: Vital Signs Temp Pulse Resp BP Pulse Ox 10/06/19 08:29 98.2 F 69 18 169/71 H 92 Medical Necessity - Tobacco Use Smoking Status: Heavy Smoker (>10/day) Tobacco Use: Cigarettes Assessment/Plan All Active Problems (Last Updated 04/07/18 @ 11:32 by Jaylin Montes) Acute respiratory failure with hypoxia and hypercapnia (Acute) Acute bronchospasm (Acute) Recurrent right pleural effusion (Acute) Right heart failure (Acute) Hypertensive urgency (Acute) Acute exacerbation of CHF (congestive heart failure) (Acute) COPD with acute exacerbation (Acute) Pneumonia (Acute) Impacted cerumen, right ear (Acute) Reactive airway disease (Acute) Bronchitis (Acute) 1. Acute hypoxic and hypercapnic respiratory failure d/t COPD exacerbation and possible CHF with b/l pleural effusions/Tobacco abuse/Morbid Obesity -Discussed tobacco cessation -We will continue with her inhalers and transition to p.o. steroids -Wean O2 as able -Echo with an EF of 55% and no diastolic dysfunction -Antibiotics were discontinued 10/04/2019 -We will continue with IV Lasix as she is still has an elevated oxygen requirement -Discussed weight loss 2. Hypertensive Urgency -Likely contributed to her above problems -C/w the lisinopril, coreg, and Lasix, will continue to monitor DVT: Lovenox Inpatient E&M: 67784 Subs Hosp L2
[2019-10-06] MEDS: predniSONE 20 MG Tablet 40 MG PO (12:03)
[2019-10-06] MEDS: hydrALAZINE 20 MG/ML Vial 10 MG IV (15:29)
--- NOTE | 2019-10-06 20:32 | NURSING ---
Pt crying and anxious about putting the bipap. Pt said i just cant do it. emotional support. suggested we give xanax and melatonoin but pt said no she just cant do it. Offered to just do it for 1 hr and then off and on through the night but she continues to refuse. emotional support given
[2019-10-06] MEDS: Atorvastatin Calcium 80 MG Tablet PO (21:45)
[2019-10-07] VITALS (14 sets, daily range): BP systolic 128–162; BP diastolic 60–76; PULSE 54–66; RESP 16–18; TEMP 36.7–37.2; O2SAT 71–96
[2019-10-07] MEDS: Ipratropium/Albuterol Sulfate 3 ML AMPUL.NEB INHALATION ×3 (07:23→20:20)
[2019-10-07] MEDS: predniSONE 20 MG Tablet 40 MG PO (08:38)
[2019-10-07] MEDS: Carvedilol 12.5 MG Tablet PO ×2 (08:38→21:20)
[2019-10-07] MEDS: Aspirin 81 MG TAB.CHEW PO (08:38)
[2019-10-07] MEDS: Famotidine 20 MG Tablet PO ×2 (08:38→21:20)
[2019-10-07] MEDS: Lisinopril 20 MG Tablet PO (08:38)
[2019-10-07] MEDS: Enoxaparin 40 MG/0.4 ML Syringe SC (08:39)
[2019-10-07] MEDS: Furosemide 40 MG/4 ML Vial IV ×2 (08:39→18:16)
[2019-10-07] MEDS: hydroCHLOROthiazide 25 MG Tablet PO (08:42)
[2019-10-07] MEDS: 0.9% Saline Lock 10 ML Syringe IV ×3 (08:42→21:20)
--- NOTE | 2019-10-07 12:41 | PN_ITS ---
Patient Problems: Active and Suspected Problems (Last Updated 04/07/18 @ 11:32 by Jaylin Montes) Acute respiratory failure with hypoxia and hypercapnia (Acute) Acute bronchospasm (Acute) Recurrent right pleural effusion (Acute) Right heart failure (Acute) Hypertensive urgency (Acute) Acute exacerbation of CHF (congestive heart failure) (Acute) COPD with acute exacerbation (Acute) Pneumonia (Acute) Subjective: Did well overnight. Patient continues to report subjective improvement in overall condition, but is still requiring higher nasal cannula oxygen to maintain saturations. Patient became tearful when discussing BiPAP stating that there is just no way for me to use that mask. - Physical Exam Vitals/I&O's: Vital Signs Temp Pulse Resp BP Pulse Ox 36.7 C 56 L 18 132/64 H 94 10/07/19 10:40 10/07/19 10:40 10/07/19 10:40 10/07/19 10:40 10/07/19 10:40 Oxygen Flow Rate (L/min) 5 Oxygen Delivery Method Nasal Cannula Weight: 109.3 kg Body Mass Index (BMI) 43.9 Intake and Output for Last 24 Hours 10/05/19 10/06/19 10/07/19 23:59 23:59 23:59 Intake Total 1420 / 1420 1020 / 1340 1390 / 1390 Output Total 5600 / 5600 2825 / 4225 3800 / 3800 Balance -4180 / -4180 -1805 / -2885 -2410 / -2410 General: Alert, Oriented x3, Cooperative, No apparent distress, Well developed, Well nourished, - - Morbidly obese. Speaking in full sentences. HEENT: Atraumatic, PERRLA, EOMI, Normocephalic, - - No scleral icterus or injection noted Oral: Moist Mucosa, No Gingival or Mucosal Lesions/ Ulcerations Neck: Supple, No JVD, No Nodes, Trachea Midline Lungs: No rhonchi, No wheeze, Diminished, Rales, - - Symmetric expansion. Cardiovascular: Regular rate, Regular Rhythm, Normal S1, Normal S2, No murmurs, No rub noted, No Gallop Abdomen: Bowel Sounds Present, Soft, Non Tender, Non-Distended Extremities: No clubbing, No cyanosis, Edema - Improving. Lower extremities wrapped. Skin: - - No change from previous Musculoskeletal: No Tenderness to Palpation of Joints or Extremities Lymphatic: No Cervical, Supraclavicular, or Inguinal Adenopathy Neurological: Cranial nerves II-XII grossly intact, Neuro grossly intact, Motor Exam 5/5 strength throughout Psych/Mental Status: Alert and oriented to time, place, person, mood and affect Microbiology Past 72 Hours 10/02/19 18:05 Urine, Random Urine Culture - Final Culture exhibits no growth. 10/02/19 17:55 Blood Culture (Wb) - Right Hand Blood Culture - Preliminary No growth in 48 hours. 10/02/19 17:25 Blood Culture (Wb) - Left Hand Blood Culture - Preliminary No growth in 48 hours. Current Medications Acetaminophen (Tylenol) 650 mg PO Q6H PRN PRN PRN Reason: Pain Score 1-10/Temp > 100.7 F Al Hydroxide/Mg Hydroxide (Mylanta Ii) 30 ml PO Q6H PRN PRN PRN Reason: Gastric Burning Albuterol Sulfate (Ventolin Aerosols) 2.5 mg INHALATION Q2H PRN PRN PRN Reason: Dyspnea, wheezing Albuterol/Ipratropium (Duoneb) 3 ml INHALATION Q4HWA.RT [facility] Last Admin: 10/07/19 10:56 Dose: Not Given Documented by: Alprazolam (Xanax) 0.25 mg PO QHS PRN PRN PRN Reason: ANXIETY Last Admin: 10/05/19 22:20 Dose: 0.25 mg Documented by: Aspirin (Aspirin, Baby) 81 mg PO DAILY@0800 [facility] Last Admin: 10/07/19 08:38 Dose: 81 mg Documented by: Atorvastatin Calcium (Lipitor) 80 mg PO QHS [facility] Last Admin: 10/06/19 21:45 Dose: 80 mg Documented by: Carvedilol (Coreg) 12.5 mg PO BID [facility] Last Admin: 10/07/19 08:38 Dose: 12.5 mg Documented by: Enoxaparin Sodium (Lovenox) 40 mg SC DAILY [facility] Last Admin: 10/07/19 08:39 Dose: 40 mg Documented by: Famotidine (Pepcid) 20 mg PO BID [facility] Last Admin: 10/07/19 08:38 Dose: 20 mg Documented by: Furosemide (Lasix) 40 mg IV BID@1000,1800 [facility] Last Admin: 10/07/19 08:39 Dose: 40 mg Documented by: Guaifenesin (Robitussin) 10 ml PO Q4H PRN PRN PRN Reason: COUGH Last Admin: 10/06/19 02:49 Dose: 10 ml Documented by: Hydralazine HCl (Apresoline Iv) 10 mg IV Q4H PRN PRN PRN Reason: SBP > 160 Last Admin: 10/06/19 15:29 Dose: 10 mg Documented by: Hydrochlorothiazide (Hctz) 25 mg PO DAILY [facility] Last Admin: 10/07/19 08:42 Dose: 25 mg Documented by: Sodium Chloride () 250 mls @ 15 mls/hr IV .[id number] PRN PRN Reason: Saline Flush Last Infusion: 10/04/19 08:00 Dose: 0 mls/hr Documented by: Sodium Chloride () 250 mls @ 15 mls/hr IV .[id number] PRN PRN Reason: Additional IVPB Infusion Lisinopril (Zestril) 20 mg PO DAILY [facility] Last Admin: 10/07/19 08:38 Dose: 20 mg Documented by: Magnesium Hydroxide (Milk Of Magnesia) 30 ml PO DAILY PRN PRN PRN Reason: Constipation Melatonin (Melatonin) 3 mg PO QHS PRN PRN PRN Reason: INSOMNIA Last Admin: 10/05/19 21:52 Dose: 3 mg Documented by: Nicotine (Nicoderm Cq (Pbkc)) 21 mg TRANSDERM. DAILY [facility] Last Admin: 10/07/19 08:38 Dose: 21 mg Documented by: Nitroglycerin (Nitrostat) 0.4 mg SUBLINGUAL Q5M PRN PRN Reason: CARDIAC/CHEST PAIN Ondansetron HCl (Zofran) 4 mg IV Q8H PRN PRN PRN Reason: NAUSEA/VOMITING Prednisone () 40 mg PO DAILY@0800 [facility] Stop: 10/10/19 08:01 Last Admin: 10/07/19 08:38 Dose: 40 mg Documented by: Prochlorperazine Edisylate (Compazine Iv) 5 mg IV Q4H PRN PRN PRN Reason: Breakthrough Nausea/Vomiting Psyllium Hydrophilic Mucilloid (Metamucil) 1 packet PO DAILY PRN PRN PRN Reason: Constipation Senna/Docusate Sodium (Senokot-S, Marianne-Colace) 2 tablet PO BID PRN PRN Reason: Constipation Sodium Chloride () 10 - 40 ml IV UD PRN PRN Reason: SALINE FLUSH Last Admin: 10/07/19 08:42 Dose: 10 ml Documented by: Throat Lozenges (Cepacol Sore Throat Lozenge) 1 lozenge MUCOUS MEM Q2H PRN PRN PRN Reason: SORE THROAT Medical Necessity - Tobacco Use Smoking Status: Heavy Smoker (>10/day) Tobacco Use: Cigarettes Assessment/Plan All Active Problems (Last Updated 04/07/18 @ 11:32 by Jaylin Montes) Acute respiratory failure with hypoxia and hypercapnia (Acute) Acute bronchospasm (Acute) Recurrent right pleural effusion (Acute) Right heart failure (Acute) Hypertensive urgency (Acute) Acute exacerbation of CHF (congestive heart failure) (Acute) COPD with acute exacerbation (Acute) Pneumonia (Acute) Impacted cerumen, right ear (Acute) Reactive airway disease (Acute) Bronchitis (Acute) RECOMMENDATIONS: 1. Continue BiPAP with sleep if tolerated 2. Continue scheduled bronchodilator therapy. 3. Transition to p.o. steroids and complete 5-day burst 4. Increase activity as tolerated 5. Continue scheduled IV Lasix as tolerated by renal function and hemodynamics. 6. Continue nicotine replacement therapy. 7. Okay to discharge once able to ambulate with acceptable saturations on 6 L or less IMPRESSIONS: 1. Acute combined respiratory failure Patient appears to be responding well to diuretic therapy. Clinical suspicion for hypertensive urgency with a component of CHF with bilateral pleural effusions noted on imaging. Patient continues to have good diuresis and renal function improved after 10 L of diuresis. This would be suggestive of improved Starling forces from volume optimization. Continue with diuresis as tolerated. We transitioned patient to prednisone to complete a 5-day burst. Doubt steroids leading to most of improvement. Patient would benefit from outpatient PFT for quantification clarification of lung function. Would recommend keeping diuretic therapy IV until ready for discharge. 2. Suspected COPD with exacerbation/history of nicotine dependency As noted above, plan to continue current supportive measures. Smoking cessation counseling was provided. Ideally, the patient should follow-up in the pulmonary medicine clinic after discharge so that baseline pulmonary function studies can be obtained. Based on the results of testing, the patient may be a candidate for for the initiation of a maintenance inhaler regimen to assist with alleviating her chronic shortness of breath symptoms. Nicotine replacement therapy will be utilized while the patient is admitted to the hospital. 3. Hypertensive urgency I do suspect that the patient's elevated blood pressures noted on presentation are likely contributing to her presenting symptoms. Agree with aggressive blood pressure control as ordered. 4. Morbid obesity/suspected sleep disordered breathing Complicates care, management, recovery and prognosis. As noted above, I would recommend outpatient pulmonary follow-up within 2 weeks of discharge from the hospital. Patient should continue nocturnal BiPAP as tolerated. Patient would benefit from outpatient PSG. Inpatient E&M: 69399 Subs Hosp L2
--- NOTE | 2019-10-07 13:48 | PN_ITS ---
Patient Problems: Active and Suspected Problems (Last Updated 04/07/18 @ 11:32 by Jaylin Montes) Acute respiratory failure with hypoxia and hypercapnia (Acute) Acute bronchospasm (Acute) Recurrent right pleural effusion (Acute) Right heart failure (Acute) Hypertensive urgency (Acute) Acute exacerbation of CHF (congestive heart failure) (Acute) COPD with acute exacerbation (Acute) Pneumonia (Acute) Subjective: Breathing little bit better and says that her swelling is improved. She did have an ambulatory pulse ox this morning she went down to 71% on room air and required about 8 L to bring her back up. Vitals/I&O's: Vital Signs Temp Pulse Resp BP Pulse Ox 98.1 F 56 L 18 132/64 H 94 10/07/19 10:40 10/07/19 10:40 10/07/19 10:40 10/07/19 10:40 10/07/19 10:40 Oxygen Flow Rate (L/min) 5 Oxygen Delivery Method Nasal Cannula Weight: 240 lb 15.444 oz Body Mass Index (BMI) 43.9 Intake and Output for Last 24 Hours 10/05/19 10/06/19 10/07/19 23:59 23:59 23:59 Intake Total 1420 / 1420 1020 / 1340 1390 / 1390 Output Total 5600 / 5600 2825 / 4225 3800 / 3800 Balance -4180 / -4180 -1805 / -2885 -2410 / -2410 General: Alert, Oriented x3, Cooperative, No apparent distress HEENT: Atraumatic, PERRLA, EOMI, Normocephalic Oral: Moist Mucosa Neck: Supple, No JVD Lungs: Diminished, no rhonchi, no wheezing, no rales Cardiovascular: Regular rate, Regular Rhythm, Normal S1, Normal S2, No murmurs Abdomen: Soft, Non Tender, Non-Distended, No Hepato-splenomegaly Extremities: Capillary Refill Less than 3 Seconds, Edema 1+ Skin: No rashes, No breakdown Neurological: Neuro grossly intact, Sensory exam intact to light touch and pain Psych/Mental Status: Normal Affect, Appropriate Microbiology Past 72 Hours 10/02/19 18:05 Urine, Random Urine Culture - Final Culture exhibits no growth. 10/02/19 17:55 Blood Culture (Wb) - Right Hand Blood Culture - Preliminary No growth in 48 hours. 10/02/19 17:25 Blood Culture (Wb) - Left Hand Blood Culture - Preliminary No growth in 48 hours. Current Medications Acetaminophen (Tylenol) 650 mg PO Q6H PRN PRN PRN Reason: Pain Score 1-10/Temp > 100.7 F Al Hydroxide/Mg Hydroxide (Mylanta Ii) 30 ml PO Q6H PRN PRN PRN Reason: Gastric Burning Albuterol Sulfate (Ventolin Aerosols) 2.5 mg INHALATION Q2H PRN PRN PRN Reason: Dyspnea, wheezing Albuterol/Ipratropium (Duoneb) 3 ml INHALATION Q4HWA.RT [facility] Last Admin: 10/07/19 10:56 Dose: Not Given Documented by: Alprazolam (Xanax) 0.25 mg PO QHS PRN PRN PRN Reason: ANXIETY Last Admin: 10/05/19 22:20 Dose: 0.25 mg Documented by: Aspirin (Aspirin, Baby) 81 mg PO DAILY@0800 [facility] Last Admin: 10/07/19 08:38 Dose: 81 mg Documented by: Atorvastatin Calcium (Lipitor) 80 mg PO QHS [facility] Last Admin: 10/06/19 21:45 Dose: 80 mg Documented by: Carvedilol (Coreg) 12.5 mg PO BID [facility] Last Admin: 10/07/19 08:38 Dose: 12.5 mg Documented by: Enoxaparin Sodium (Lovenox) 40 mg SC DAILY [facility] Last Admin: 10/07/19 08:39 Dose: 40 mg Documented by: Famotidine (Pepcid) 20 mg PO BID [facility] Last Admin: 10/07/19 08:38 Dose: 20 mg Documented by: Furosemide (Lasix) 40 mg IV BID@1000,1800 [facility] Last Admin: 10/07/19 08:39 Dose: 40 mg Documented by: Guaifenesin (Robitussin) 10 ml PO Q4H PRN PRN PRN Reason: COUGH Last Admin: 10/06/19 02:49 Dose: 10 ml Documented by: Hydralazine HCl (Apresoline Iv) 10 mg IV Q4H PRN PRN PRN Reason: SBP > 160 Last Admin: 10/06/19 15:29 Dose: 10 mg Documented by: Hydrochlorothiazide (Hctz) 25 mg PO DAILY [facility] Last Admin: 10/07/19 08:42 Dose: 25 mg Documented by: Sodium Chloride () 250 mls @ 15 mls/hr IV .[id number] PRN PRN Reason: Saline Flush Last Infusion: 10/04/19 08:00 Dose: 0 mls/hr Documented by: Sodium Chloride () 250 mls @ 15 mls/hr IV .[id number] PRN PRN Reason: Additional IVPB Infusion Lisinopril (Zestril) 20 mg PO DAILY [facility] Last Admin: 10/07/19 08:38 Dose: 20 mg Documented by: Magnesium Hydroxide (Milk Of Magnesia) 30 ml PO DAILY PRN PRN PRN Reason: Constipation Melatonin (Melatonin) 3 mg PO QHS PRN PRN PRN Reason: INSOMNIA Last Admin: 10/05/19 21:52 Dose: 3 mg Documented by: Nicotine (Nicoderm Cq (Pbkc)) 21 mg TRANSDERM. DAILY [facility] Last Admin: 10/07/19 08:38 Dose: 21 mg Documented by: Nitroglycerin (Nitrostat) 0.4 mg SUBLINGUAL Q5M PRN PRN Reason: CARDIAC/CHEST PAIN Ondansetron HCl (Zofran) 4 mg IV Q8H PRN PRN PRN Reason: NAUSEA/VOMITING Prednisone () 40 mg PO DAILY@0800 [facility] Stop: 10/10/19 08:01 Last Admin: 10/07/19 08:38 Dose: 40 mg Documented by: Prochlorperazine Edisylate (Compazine Iv) 5 mg IV Q4H PRN PRN PRN Reason: Breakthrough Nausea/Vomiting Psyllium Hydrophilic Mucilloid (Metamucil) 1 packet PO DAILY PRN PRN PRN Reason: Constipation Senna/Docusate Sodium (Senokot-S, Marianne-Colace) 2 tablet PO BID PRN PRN Reason: Constipation Sodium Chloride () 10 - 40 ml IV UD PRN PRN Reason: SALINE FLUSH Last Admin: 10/07/19 08:42 Dose: 10 ml Documented by: Throat Lozenges (Cepacol Sore Throat Lozenge) 1 lozenge MUCOUS MEM Q2H PRN PRN PRN Reason: SORE THROAT STROKE Vital Signs/Narrative: Vital Signs Temp Pulse Resp BP Pulse Ox 10/07/19 10:40 98.1 F 56 L 18 132/64 H 94 Medical Necessity - Tobacco Use Smoking Status: Heavy Smoker (>10/day) Tobacco Use: Cigarettes Assessment/Plan All Active Problems (Last Updated 04/07/18 @ 11:32 by Jaylin Montes) Acute respiratory failure with hypoxia and hypercapnia (Acute) Acute bronchospasm (Acute) Recurrent right pleural effusion (Acute) Right heart failure (Acute) Hypertensive urgency (Acute) Acute exacerbation of CHF (congestive heart failure) (Acute) COPD with acute exacerbation (Acute) Pneumonia (Acute) Impacted cerumen, right ear (Acute) Reactive airway disease (Acute) Bronchitis (Acute) 1. Acute hypoxic and hypercapnic respiratory failure d/t COPD exacerbation and possible CHF with b/l pleural effusions/Tobacco abuse/Morbid Obesity -Discussed tobacco cessation -We will continue with her inhalers and transition to p.o. steroids -Wean O2 as able -Echo with an EF of 55% and no diastolic dysfunction -She has been diuresed little over 10 L, kidney function is still very stable -Antibiotics were discontinued 10/04/2019 -We will continue with IV Lasix as she is still has an elevated oxygen requirement -Discussed weight loss 2. Hypertensive Urgency -Likely contributed to her above problems -C/w the lisinopril, coreg, and Lasix, will add hydrochlorothiazide as her blood pressures have been a little bit high in the afternoons DVT: [facility] Inpatient E&M: 17068 Subs Hosp L2
[2019-10-07] MEDS: hydrALAZINE 20 MG/ML Vial 10 MG IV (21:19)
[2019-10-07] MEDS: Atorvastatin Calcium 80 MG Tablet PO (21:20)
[2019-10-08] VITALS (18 sets, daily range): BP systolic 111–145; BP diastolic 49–74; PULSE 51–78; RESP 18; TEMP 36.7–37.4; O2SAT 91–94
--- NOTE | 2019-10-08 03:19 | CPS ---
REFUSED CANT TOLERATE.
[2019-10-08 06:47] LABS: Anion Gap 0 (5-15); BUN 26 mg/dL (7-18); BUN/Creat Ratio 25.2 RATIO (10-20); Calcium,Total 8.6 mg/dL (8.5-10.1); Chloride 96 mmol/L (98-107); Creatinine, Serum 1.03 mg/dL (0.55-1.02); EST Glomerular Filtration Rate 57 mL/min (>60); Est Glom Filt Rate - Afr Amer 69 mL/min (>60); Estimated Creatinine Clearance 44.44 ml/min; Glucose 78 mg/dL (74-106); Potassium 3.7 mmol/L (3.5-5.1); Sodium Level 140 mmol/L (136-145)
[2019-10-08] MEDS: predniSONE 20 MG Tablet 40 MG PO (07:33)
[2019-10-08] MEDS: Ipratropium/Albuterol Sulfate 3 ML AMPUL.NEB INHALATION ×4 (07:33→19:46)
[2019-10-08] MEDS: Aspirin 81 MG TAB.CHEW PO (07:33)
[2019-10-08] MEDS: 0.9% Saline Lock 10 ML Syringe IV (09:05)
[2019-10-08] MEDS: Enoxaparin 40 MG/0.4 ML Syringe SC (09:05)
[2019-10-08] MEDS: Furosemide 40 MG/4 ML Vial IV (09:05)
[2019-10-08] MEDS: Famotidine 20 MG Tablet PO ×2 (09:06→20:38)
[2019-10-08] MEDS: Carvedilol 12.5 MG Tablet PO (09:06)
[2019-10-08] MEDS: hydroCHLOROthiazide 25 MG Tablet PO (09:06)
[2019-10-08] MEDS: Lisinopril 20 MG Tablet PO (09:06)
--- NOTE | 2019-10-08 10:50 | NURSING ---
This RN taking over patient care at this time. Report received from Min Arizmendi RN.
[2019-10-08 11:32] LABS: Magnesium 2.4 mg/dL (1.6-2.6)
--- NOTE | 2019-10-08 12:08 | CASEMGMT ---
SW completed a Palliative Care tool on patient. She scored a 3. SW did not talk with patient about Palliative Care due to her score being a 3. Carol DEL VALLE MSW
--- NOTE | 2019-10-08 12:38 | PCM.CONS.GEN ---
Problem List (1) Callus of foot Status: Chronic (2) Pain in toe Status: Chronic Qualifiers: Laterality: bilateral Qualified Code(s): M79.674 - Pain in right toe(s); M79.675 - Pain in left toe(s) (3) Edema of leg Status: Acute (4) Acute exacerbation of CHF (congestive heart failure) Status: Acute Qualifiers: Heart failure type: unspecified Qualified Code(s): I50.9 - Heart failure, unspecified Reason for Consult Date of Consultation: 10/08/19 History of Present Illness: The patient is a 64 year old F who presents with SOB and edema to b/l LE. Patient states that she has been sick for the last several months which has prevented her from taking care of herself. Patient states that upon admission she was unable to automatic buffing wheel former her ankles they were so swollen. Patient also states that prior to getting sick she would take a knife to the calluses on the bottom of her feet. Patient is currently on nasal cannula oxygen and states as is she has no SOB. Patient also denies CP/N/F/V/C.[] Past Medical History Past Medical History (Chronic Problems): Chronic Problems (Last Updated 04/07/18 @ 11:32 by Jaylin Montes) Asthma exacerbation in COPD (Chronic) Tobacco use (Chronic) Morbid obesity (Chronic) Callus of foot (Chronic) Pain in toe (Chronic) Medical History: Medical History (Last Updated 04/07/18 @ 11:32 by Jaylin Montes) Collapsed lung J98.19 Fatigue R53.83 Shortness of breath R06.02 Allergies No Known Allergies Allergy (Verified 10/02/19 17:14) Home Medications: Ambulatory Orders Medication Instructions Recorded NK 10/02/19 Surgical History: Surgical History (Last Reviewed 04/07/18 @ 11:32 by Jaylin Montes) History of hysterectomy Z90.710 Surgical History: - - Hysterectomy, intervention for right collapsed lung with chest tube, tonsillectomy. Psychiatric History: No pertinent psych hx [employer] History: No pertinent [employer] history Lives: Spouse/ Significant Other - Patient lives with her who is a truck driving and frequently gone. Smoking Status: Heavy Smoker (>10/day) Tobacco Use: Cigarettes Alcohol: None Drugs: None - *Family History Maternal History Items: Diabetes Paternal History Items: Diabetes, Hypertension Review of Systems Constitutional: Denies: Chills, Fever HEENT: Denies: Difficulty Hearing Cardiovascular: Reports: Edema. Denies: Chest Pain Respiratory: Reports: Shortness of breath upon exertion. Denies: Shortness of breath at rest Musculoskeletal: Reports: Foot Pain Skin: Reports: - - callus b/l feet Neurological: Denies: Numbness, Tingling Patient Problems: Active and Suspected Problems (Last Updated 04/07/18 @ 11:32 by Jaylin Montes) Acute respiratory failure with hypoxia and hypercapnia (Acute) Acute bronchospasm (Acute) Recurrent right pleural effusion (Acute) Right heart failure (Acute) Hypertensive urgency (Acute) Acute exacerbation of CHF (congestive heart failure) (Acute) COPD with acute exacerbation (Acute) Pneumonia (Acute) Edema of leg (Acute) - Physical Exam Vitals/I&O's: Vital Signs Temp Pulse Resp BP Pulse Ox 98.2 F 54 L 18 136/65 H 92 10/08/19 08:36 10/08/19 11:18 10/08/19 11:18 10/08/19 08:36 10/08/19 11:18 Oxygen Flow Rate (L/min) 4 Oxygen Delivery Method Nasal Cannula Weight: 105.8 kg Body Mass Index (BMI) 43.9 Intake and Output for Last 24 Hours 10/06/19 10/07/19 10/08/19 23:59 23:59 23:59 Intake Total 1020 / 1340 1640 / 1840 440 / 440 Output Total 2825 / 4225 4425 / 5775 5050 / 5050 Balance -1805 / -2885 -2785 / -3935 -4610 / -4610 General: Alert, Oriented x3 HEENT: Atraumatic Extremities: Diminished Peripheral Pulses - 1/2 DP/PT, CFT < 3 seconds, Edema - b/l LE +2 pitting edema, Tenderness - to toenails 1-5 b/l and callus tissue plantar sub 5 and 3 metatarsals bilateral and sub 1 metatarsal right foot Skin: No breakdown, - - curved ingrowing nails noted digits 1, 2,3 b/l with pain on palpation. Nails 1, 2, 3 bilateral are thickened and elongated. Skin is thin. No ulcerations noted Musculoskeletal: Tenderness - nails and afroementioned calluses Neurological: Neuro grossly intact, Sensory exam intact to light touch and pain Psych/Mental Status: Appropriate Microbiology Past 72 Hours 10/02/19 17:55 Blood Culture (Wb) - Right Hand Blood Culture - Final No growth in 5 days. 10/02/19 17:25 Blood Culture (Wb) - Left Hand Blood Culture - Final No growth in 5 days. 10/02/19 18:05 Urine, Random Urine Culture - Final Culture exhibits no growth. Laboratory Results 10/08/19 06:16: Sodium 140, Potassium 3.7, Chloride 96 L, Carbon Dioxide 44.0 H, Anion Gap 0 L, BUN 26 H, Creatinine 1.03 H, Estim Creat Clear Calc 44.44, Est GFR (MDRD) Af Amer 69, Est GFR (MDRD) Non-Af 57 L, BUN/Creatinine Ratio 25.2 H, Glucose 78, Calcium 8.6 10/08/19 06:16: Magnesium 2.4 Current Medications Acetaminophen (Tylenol) 650 mg PO Q6H PRN PRN PRN Reason: Pain Score 1-10/Temp > 100.7 F Al Hydroxide/Mg Hydroxide (Mylanta Ii) 30 ml PO Q6H PRN PRN PRN Reason: Gastric Burning Albuterol Sulfate (Ventolin Aerosols) 2.5 mg INHALATION Q2H PRN PRN PRN Reason: Dyspnea, wheezing Albuterol/Ipratropium (Duoneb) 3 ml INHALATION Q4HWA.RT [facility] Last Admin: 10/08/19 11:18 Dose: 3 ml Documented by: Alprazolam (Xanax) 0.25 mg PO QHS PRN PRN PRN Reason: ANXIETY Last Admin: 10/05/19 22:20 Dose: 0.25 mg Documented by: Aspirin (Aspirin, Baby) 81 mg PO DAILY@0800 [facility] Last Admin: 10/08/19 07:33 Dose: 81 mg Documented by: Atorvastatin Calcium (Lipitor) 80 mg PO QHS [facility] Last Admin: 10/07/19 21:20 Dose: 80 mg Documented by: Carvedilol (Coreg) 12.5 mg PO BID [facility] Last Admin: 10/08/19 09:06 Dose: 12.5 mg Documented by: Enoxaparin Sodium (Lovenox) 40 mg SC DAILY [facility] Last Admin: 10/08/19 09:05 Dose: 40 mg Documented by: Famotidine (Pepcid) 20 mg PO BID [facility] Last Admin: 10/08/19 09:06 Dose: 20 mg Documented by: Guaifenesin (Robitussin) 10 ml PO Q4H PRN PRN PRN Reason: COUGH Last Admin: 10/06/19 02:49 Dose: 10 ml Documented by: Hydralazine HCl (Apresoline Iv) 10 mg IV Q4H PRN PRN PRN Reason: SBP > 160 Last Admin: 10/07/19 21:19 Dose: 10 mg Documented by: Hydrochlorothiazide (Hctz) 25 mg PO DAILY [facility] Last Admin: 10/08/19 09:06 Dose: 25 mg Documented by: Sodium Chloride () 250 mls @ 15 mls/hr IV .[id number] PRN PRN Reason: Saline Flush Last Infusion: 10/04/19 08:00 Dose: 0 mls/hr Documented by: Sodium Chloride () 250 mls @ 15 mls/hr IV .[id number] PRN PRN Reason: Additional IVPB Infusion Lisinopril (Zestril) 20 mg PO DAILY [facility] Last Admin: 10/08/19 09:06 Dose: 20 mg Documented by: Magnesium Hydroxide (Milk Of Magnesia) 30 ml PO DAILY PRN PRN PRN Reason: Constipation Melatonin (Melatonin) 3 mg PO QHS PRN PRN PRN Reason: INSOMNIA Last Admin: 10/05/19 21:52 Dose: 3 mg Documented by: Nicotine (Nicoderm Cq (Pbkc)) 21 mg TRANSDERM. DAILY [facility] Last Admin: 10/08/19 09:05 Dose: 21 mg Documented by: Nitroglycerin (Nitrostat) 0.4 mg SUBLINGUAL Q5M PRN PRN Reason: CARDIAC/CHEST PAIN Ondansetron HCl (Zofran) 4 mg IV Q8H PRN PRN PRN Reason: NAUSEA/VOMITING Prednisone () 40 mg PO DAILY@0800 [facility] Stop: 10/10/19 08:01 Last Admin: 10/08/19 07:33 Dose: 40 mg Documented by: Prochlorperazine Edisylate (Compazine Iv) 5 mg IV Q4H PRN PRN PRN Reason: Breakthrough Nausea/Vomiting Psyllium Hydrophilic Mucilloid (Metamucil) 1 packet PO DAILY PRN PRN PRN Reason: Constipation Senna/Docusate Sodium (Senokot-S, Marianne-Colace) 2 tablet PO BID PRN PRN Reason: Constipation Sodium Chloride () 10 - 40 ml IV UD PRN PRN Reason: SALINE FLUSH Last Admin: 10/08/19 09:05 Dose: 10 ml Documented by: Throat Lozenges (Cepacol Sore Throat Lozenge) 1 lozenge MUCOUS MEM Q2H PRN PRN PRN Reason: SORE THROAT Assessment/Plan All Active Problems (Last Updated 04/07/18 @ 11:32 by Jaylin Montes) Acute respiratory failure with hypoxia and hypercapnia (Acute) Acute bronchospasm (Acute) Recurrent right pleural effusion (Acute) Right heart failure (Acute) Hypertensive urgency (Acute) Acute exacerbation of CHF (congestive heart failure) (Acute) COPD with acute exacerbation (Acute) Pneumonia (Acute) Edema of leg (Acute) Impacted cerumen, right ear (Acute) Reactive airway disease (Acute) Bronchitis (Acute) painful toes left and right feet edema b/l LE CHF Patient seen and examined patient encouraged to walk and pump ankles to help get fluid out of her feet continue compression wraps b/l LE toes to knee The thickened and dystrophic nails 1,2,3,4,5 left and right were trimmed and debrided with a nail nipper and were reduced in thickness without incident to decrease pain and pressure and to improve cosmesis by turning the nail nippers to a 45 degree angle. The patient tolerated this procedure. The patient was advised to wear proper shoe gear and on other conservative care treatment options for this condition. Attention was directed to all calluses/corns. Sharp debridement was performed on all lesions Patient to follow up in office in 3 months. [facility] for appointment Thank you for the consult, please contact Dr Puentes if any questions.
--- NOTE | 2019-10-08 13:06 | PCM.PN.HOSP ---
Patient Problems: Active and Suspected Problems (Last Updated 04/07/18 @ 11:32 by Jaylin Montes) Acute respiratory failure with hypoxia and hypercapnia (Acute) Acute bronchospasm (Acute) Recurrent right pleural effusion (Acute) Right heart failure (Acute) Hypertensive urgency (Acute) Acute exacerbation of CHF (congestive heart failure) (Acute) COPD with acute exacerbation (Acute) Pneumonia (Acute) Subjective: Doing okay, swelling is improved and breathing is stable Vitals/I&O's: Vital Signs Temp Pulse Resp BP Pulse Ox 98.2 F 54 L 18 136/65 H 92 10/08/19 08:36 10/08/19 11:18 10/08/19 11:18 10/08/19 08:36 10/08/19 11:18 Oxygen Flow Rate (L/min) 4 Oxygen Delivery Method Nasal Cannula Weight: 233 lb 3.985 oz Body Mass Index (BMI) 43.9 Intake and Output for Last 24 Hours 10/06/19 10/07/19 10/08/19 23:59 23:59 23:59 Intake Total 1020 / 1340 1640 / 1840 440 / 440 Output Total 2825 / 4225 4425 / 5775 5050 / 5050 Balance -1805 / -2885 -2785 / -3935 -4610 / -4610 General: Alert, Oriented x3, Cooperative, No apparent distress HEENT: Atraumatic, PERRLA, EOMI, Normocephalic Oral: Moist Mucosa Neck: Supple, No JVD Lungs: Diminished, no rhonchi, no wheezing, no rales Cardiovascular: Regular rate, Regular Rhythm, Normal S1, Normal S2, No murmurs Abdomen: Soft, Non Tender, Non-Distended, No Hepato-splenomegaly Extremities: Capillary Refill Less than 3 Seconds, Edema 1+ Skin: No rashes, No breakdown Neurological: Neuro grossly intact, Sensory exam intact to light touch and pain Psych/Mental Status: Normal Affect, Appropriate Microbiology Past 72 Hours 10/02/19 17:55 Blood Culture (Wb) - Right Hand Blood Culture - Final No growth in 5 days. 10/02/19 17:25 Blood Culture (Wb) - Left Hand Blood Culture - Final No growth in 5 days. Laboratory Results 10/08/19 06:16: Sodium 140, Potassium 3.7, Chloride 96 L, Carbon Dioxide 44.0 H, Anion Gap 0 L, BUN 26 H, Creatinine 1.03 H, Estim Creat Clear Calc 44.44, Est GFR (MDRD) Af Amer 69, Est GFR (MDRD) Non-Af 57 L, BUN/Creatinine Ratio 25.2 H, Glucose 78, Calcium 8.6 10/08/19 06:16: Magnesium 2.4 Current Medications Acetaminophen (Tylenol) 650 mg PO Q6H PRN PRN PRN Reason: Pain Score 1-10/Temp > 100.7 F Al Hydroxide/Mg Hydroxide (Mylanta Ii) 30 ml PO Q6H PRN PRN PRN Reason: Gastric Burning Albuterol Sulfate (Ventolin Aerosols) 2.5 mg INHALATION Q2H PRN PRN PRN Reason: Dyspnea, wheezing Albuterol/Ipratropium (Duoneb) 3 ml INHALATION Q4HWA.RT [facility] Last Admin: 10/08/19 11:18 Dose: 3 ml Documented by: Alprazolam (Xanax) 0.25 mg PO QHS PRN PRN PRN Reason: ANXIETY Last Admin: 10/05/19 22:20 Dose: 0.25 mg Documented by: Aspirin (Aspirin, Baby) 81 mg PO DAILY@0800 [facility] Last Admin: 10/08/19 07:33 Dose: 81 mg Documented by: Atorvastatin Calcium (Lipitor) 80 mg PO QHS [facility] Last Admin: 10/07/19 21:20 Dose: 80 mg Documented by: Carvedilol (Coreg) 12.5 mg PO BID [facility] Last Admin: 10/08/19 09:06 Dose: 12.5 mg Documented by: Enoxaparin Sodium (Lovenox) 40 mg SC DAILY [facility] Last Admin: 10/08/19 09:05 Dose: 40 mg Documented by: Famotidine (Pepcid) 20 mg PO BID [facility] Last Admin: 10/08/19 09:06 Dose: 20 mg Documented by: Guaifenesin (Robitussin) 10 ml PO Q4H PRN PRN PRN Reason: COUGH Last Admin: 10/06/19 02:49 Dose: 10 ml Documented by: Hydralazine HCl (Apresoline Iv) 10 mg IV Q4H PRN PRN PRN Reason: SBP > 160 Last Admin: 10/07/19 21:19 Dose: 10 mg Documented by: Hydrochlorothiazide (Hctz) 25 mg PO DAILY [facility] Last Admin: 10/08/19 09:06 Dose: 25 mg Documented by: Sodium Chloride () 250 mls @ 15 mls/hr IV .[id number] PRN PRN Reason: Saline Flush Last Infusion: 10/04/19 08:00 Dose: 0 mls/hr Documented by: Sodium Chloride () 250 mls @ 15 mls/hr IV .[id number] PRN PRN Reason: Additional IVPB Infusion Lisinopril (Zestril) 20 mg PO DAILY [facility] Last Admin: 10/08/19 09:06 Dose: 20 mg Documented by: Magnesium Hydroxide (Milk Of Magnesia) 30 ml PO DAILY PRN PRN PRN Reason: Constipation Melatonin (Melatonin) 3 mg PO QHS PRN PRN PRN Reason: INSOMNIA Last Admin: 10/05/19 21:52 Dose: 3 mg Documented by: Nicotine (Nicoderm Cq (Pbkc)) 21 mg TRANSDERM. DAILY [facility] Last Admin: 10/08/19 09:05 Dose: 21 mg Documented by: Nitroglycerin (Nitrostat) 0.4 mg SUBLINGUAL Q5M PRN PRN Reason: CARDIAC/CHEST PAIN Ondansetron HCl (Zofran) 4 mg IV Q8H PRN PRN PRN Reason: NAUSEA/VOMITING Prednisone () 40 mg PO DAILY@0800 [facility] Stop: 10/10/19 08:01 Last Admin: 10/08/19 07:33 Dose: 40 mg Documented by: Prochlorperazine Edisylate (Compazine Iv) 5 mg IV Q4H PRN PRN PRN Reason: Breakthrough Nausea/Vomiting Psyllium Hydrophilic Mucilloid (Metamucil) 1 packet PO DAILY PRN PRN PRN Reason: Constipation Senna/Docusate Sodium (Senokot-S, Marianne-Colace) 2 tablet PO BID PRN PRN Reason: Constipation Sodium Chloride () 10 - 40 ml IV UD PRN PRN Reason: SALINE FLUSH Last Admin: 10/08/19 09:05 Dose: 10 ml Documented by: Throat Lozenges (Cepacol Sore Throat Lozenge) 1 lozenge MUCOUS MEM Q2H PRN PRN PRN Reason: SORE THROAT STROKE Vital Signs/Narrative: Vital Signs Pulse Resp Pulse Ox 10/08/19 11:18 54 L 18 92 10/08/19 11:03 69 Medical Necessity - Tobacco Use Smoking Status: Heavy Smoker (>10/day) Tobacco Use: Cigarettes Assessment/Plan All Active Problems (Last Updated 04/07/18 @ 11:32 by Jaylin Montes) Acute respiratory failure with hypoxia and hypercapnia (Acute) Acute bronchospasm (Acute) Recurrent right pleural effusion (Acute) Right heart failure (Acute) Hypertensive urgency (Acute) Acute exacerbation of CHF (congestive heart failure) (Acute) COPD with acute exacerbation (Acute) Pneumonia (Acute) Impacted cerumen, right ear (Acute) Reactive airway disease (Acute) Bronchitis (Acute) 1. Acute hypoxic and hypercapnic respiratory failure d/t COPD exacerbation and possible CHF with b/l pleural effusions/Tobacco abuse/Morbid Obesity -Discussed tobacco cessation -We will continue with her inhalers and transitioned to p.o. steroids -Wean O2 as able -Echo with an EF of 55% and no diastolic dysfunction -She has been diuresed little over 15 L, creatinine is 1.03 with a bicarb of 44 -Magnesium is normal -Antibiotics were discontinued 10/04/2019 -We will discontinue her IV Lasix and monitor her bicarb and creatinine. We will repeat an ambulatory pulse ox tomorrow morning -Discussed weight loss 2. Hypertensive Urgency -Likely contributed to her above problems -C/w the lisinopril, coreg, and Lasix, and hydrochlorothiazide was added as her blood pressures have been a little bit high in the afternoons [facility] [id number] Subs Hosp L2
--- NOTE | 2019-10-08 15:07 | PCM.PN.PUL ---
Patient Problems: Active and Suspected Problems (Last Updated 04/07/18 @ 11:32 by Jaylin Montes) Acute respiratory failure with hypoxia and hypercapnia (Acute) Acute bronchospasm (Acute) Recurrent right pleural effusion (Acute) Right heart failure (Acute) Hypertensive urgency (Acute) Acute exacerbation of CHF (congestive heart failure) (Acute) COPD with acute exacerbation (Acute) Pneumonia (Acute) Edema of leg (Acute) Subjective: Patient did okay overnight. Patient with significant diuresis and some improvement in oxygenation. Patient has been up and moving around in the room. Patient was also able to take a walk. Objective: Significant ectopy noted on telemetry. - Physical Exam Vitals/I&O's: Vital Signs Temp Pulse Resp BP Pulse Ox 37.4 C H 64 18 145/74 H 92 10/08/19 14:36 10/08/19 14:36 10/08/19 14:36 10/08/19 14:36 10/08/19 14:53 Oxygen Flow Rate (L/min) 5 Oxygen Delivery Method Nasal Cannula Weight: 105.8 kg Body Mass Index (BMI) 43.9 Intake and Output for Last 24 Hours 10/06/19 10/07/19 10/08/19 23:59 23:59 23:59 Intake Total 1020 / 1340 1640 / 1840 440 / 440 Output Total 2825 / 4225 4425 / 5775 5050 / 5050 Balance -1805 / -2885 -2785 / -3935 -4610 / -4610 General: Alert, Oriented x3, Cooperative, No apparent distress, Well developed, Well nourished, - - Morbidly obese. Speaking in full sentences HEENT: Atraumatic, PERRLA, EOMI, Normocephalic, - - No scleral icterus or injection noted Oral: Moist Mucosa, No Gingival or Mucosal Lesions/ Ulcerations Neck: Supple, No Nodes, Trachea Midline, JVD, Right Lungs: No rhonchi, No wheeze, Diminished, Rales - Bilateral bases Cardiovascular: Regular rate, Regular Rhythm, Normal S1, Normal S2, No murmurs, No rub noted, No Gallop Abdomen: Bowel Sounds Present, Soft, Non Tender, Non-Distended, Obese Extremities: No clubbing, No cyanosis, Edema - Continues to improve Skin: - - No change compared to yesterday Musculoskeletal: No Tenderness to Palpation of Joints or Extremities Lymphatic: No Cervical, Supraclavicular, or Inguinal Adenopathy Neurological: Cranial nerves II-XII grossly intact, Neuro grossly intact, Motor Exam 5/5 strength throughout Psych/Mental Status: Alert and oriented to time, place, person, mood and affect Microbiology Past 72 Hours 10/02/19 17:55 Blood Culture (Wb) - Right Hand Blood Culture - Final No growth in 5 days. 10/02/19 17:25 Blood Culture (Wb) - Left Hand Blood Culture - Final No growth in 5 days. Laboratory Results 10/08/19 06:16: Sodium 140, Potassium 3.7, Chloride 96 L, Carbon Dioxide 44.0 H, Anion Gap 0 L, BUN 26 H, Creatinine 1.03 H, Estim Creat Clear Calc 44.44, Est GFR (MDRD) Af Amer 69, Est GFR (MDRD) Non-Af 57 L, BUN/Creatinine Ratio 25.2 H, Glucose 78, Calcium 8.6 10/08/19 06:16: Magnesium 2.4 Current Medications Acetaminophen (Tylenol) 650 mg PO Q6H PRN PRN PRN Reason: Pain Score 1-10/Temp > 100.7 F Al Hydroxide/Mg Hydroxide (Mylanta Ii) 30 ml PO Q6H PRN PRN PRN Reason: Gastric Burning Albuterol Sulfate (Ventolin Aerosols) 2.5 mg INHALATION Q2H PRN PRN PRN Reason: Dyspnea, wheezing Albuterol/Ipratropium (Duoneb) 3 ml INHALATION Q4HWA.RT [facility] Last Admin: 10/08/19 11:18 Dose: 3 ml Documented by: Alprazolam (Xanax) 0.25 mg PO QHS PRN PRN PRN Reason: ANXIETY Last Admin: 10/05/19 22:20 Dose: 0.25 mg Documented by: Aspirin (Aspirin, Baby) 81 mg PO DAILY@0800 [facility] Last Admin: 10/08/19 07:33 Dose: 81 mg Documented by: Atorvastatin Calcium (Lipitor) 80 mg PO QHS [facility] Last Admin: 10/07/19 21:20 Dose: 80 mg Documented by: Carvedilol (Coreg) 12.5 mg PO BID [facility] Last Admin: 10/08/19 09:06 Dose: 12.5 mg Documented by: Enoxaparin Sodium (Lovenox) 40 mg SC DAILY [facility] Last Admin: 10/08/19 09:05 Dose: 40 mg Documented by: Famotidine (Pepcid) 20 mg PO BID [facility] Last Admin: 10/08/19 09:06 Dose: 20 mg Documented by: Guaifenesin (Robitussin) 10 ml PO Q4H PRN PRN PRN Reason: COUGH Last Admin: 10/06/19 02:49 Dose: 10 ml Documented by: Hydralazine HCl (Apresoline Iv) 10 mg IV Q4H PRN PRN PRN Reason: SBP > 160 Last Admin: 10/07/19 21:19 Dose: 10 mg Documented by: Hydrochlorothiazide (Hctz) 25 mg PO DAILY [facility] Last Admin: 10/08/19 09:06 Dose: 25 mg Documented by: Sodium Chloride () 250 mls @ 15 mls/hr IV .[id number] PRN PRN Reason: Saline Flush Last Infusion: 10/04/19 08:00 Dose: 0 mls/hr Documented by: Sodium Chloride () 250 mls @ 15 mls/hr IV .[id number] PRN PRN Reason: Additional IVPB Infusion Lisinopril (Zestril) 20 mg PO DAILY [facility] Last Admin: 10/08/19 09:06 Dose: 20 mg Documented by: Magnesium Hydroxide (Milk Of Magnesia) 30 ml PO DAILY PRN PRN PRN Reason: Constipation Melatonin (Melatonin) 3 mg PO QHS PRN PRN PRN Reason: INSOMNIA Last Admin: 10/05/19 21:52 Dose: 3 mg Documented by: Nicotine (Nicoderm Cq (Pbkc)) 21 mg TRANSDERM. DAILY [facility] Last Admin: 10/08/19 09:05 Dose: 21 mg Documented by: Nitroglycerin (Nitrostat) 0.4 mg SUBLINGUAL Q5M PRN PRN Reason: CARDIAC/CHEST PAIN Ondansetron HCl (Zofran) 4 mg IV Q8H PRN PRN PRN Reason: NAUSEA/VOMITING Prednisone () 40 mg PO DAILY@0800 [facility] Stop: 10/10/19 08:01 Last Admin: 10/08/19 07:33 Dose: 40 mg Documented by: Prochlorperazine Edisylate (Compazine Iv) 5 mg IV Q4H PRN PRN PRN Reason: Breakthrough Nausea/Vomiting Psyllium Hydrophilic Mucilloid (Metamucil) 1 packet PO DAILY PRN PRN PRN Reason: Constipation Senna/Docusate Sodium (Senokot-S, Marianne-Colace) 2 tablet PO BID PRN PRN Reason: Constipation Sodium Chloride () 10 - 40 ml IV UD PRN PRN Reason: SALINE FLUSH Last Admin: 10/08/19 09:05 Dose: 10 ml Documented by: Throat Lozenges (Cepacol Sore Throat Lozenge) 1 lozenge MUCOUS MEM Q2H PRN PRN PRN Reason: SORE THROAT Medical Necessity - Tobacco Use Smoking Status: Heavy Smoker (>10/day) Tobacco Use: Cigarettes Assessment/Plan All Active Problems (Last Updated 04/07/18 @ 11:32 by Jaylin Montes) Acute respiratory failure with hypoxia and hypercapnia (Acute) Acute bronchospasm (Acute) Recurrent right pleural effusion (Acute) Right heart failure (Acute) Hypertensive urgency (Acute) Acute exacerbation of CHF (congestive heart failure) (Acute) COPD with acute exacerbation (Acute) Pneumonia (Acute) Edema of leg (Acute) Impacted cerumen, right ear (Acute) Reactive airway disease (Acute) Bronchitis (Acute) RECOMMENDATIONS: 1. Continue BiPAP with sleep if tolerated 2. Continue scheduled bronchodilator therapy. 3. Transition to p.o. steroids and complete 5-day burst 4. Increase activity as tolerated 5. Hold Lasix therapy and monitor for 24 hours 6. Continue nicotine replacement therapy. 7. Okay to discharge once able to ambulate with acceptable saturations on 6 L or less IMPRESSIONS: 1. Acute combined respiratory failure Patient appears to be responding well to diuretic therapy. Clinical suspicion for hypertensive urgency with a component of CHF with bilateral pleural effusions noted on imaging. Patient continues to have good diuresis and renal function improved after 16 L of diuresis. This would be suggestive of improved Starling forces from volume optimization. Continue with diuresis as tolerated. We transitioned patient to prednisone to complete a 5-day burst. Doubt steroids leading to most of improvement. Patient would benefit from outpatient PFT for quantification clarification of lung function. Would recommend keeping diuretic therapy IV until ready for discharge. Given ectopy, recommend monitoring for 24 hours without diuresis. Patient does have significant contraction alkalosis with a bicarb of 44. 2. Suspected COPD with exacerbation/history of nicotine dependency As noted above, plan to continue current supportive measures. Smoking cessation counseling was provided. Ideally, the patient should follow-up in the pulmonary medicine clinic after discharge so that baseline pulmonary function studies can be obtained. Based on the results of testing, the patient may be a candidate for for the initiation of a maintenance inhaler regimen to assist with alleviating her chronic shortness of breath symptoms. Nicotine replacement therapy will be utilized while the patient is admitted to the hospital. 3. Hypertensive urgency I do suspect that the patient's elevated blood pressures noted on presentation are likely contributing to her presenting symptoms. Agree with aggressive blood pressure control as ordered. 4. Morbid obesity/suspected sleep disordered breathing Complicates care, management, recovery and prognosis. As noted above, I would recommend outpatient pulmonary follow-up within 2 weeks of discharge from the hospital. Patient should continue nocturnal BiPAP as tolerated. Patient would benefit from outpatient PSG. Inpatient E&M: 01923 Subs Hosp L2
--- NOTE | 2019-10-08 17:03 | NURSING ---
This RN taking over care of pt at this time. Report received from DANNA Ruffin.
[2019-10-08] MEDS: Atorvastatin Calcium 80 MG Tablet PO (20:38)
[2019-10-09] VITALS (11 sets, daily range): BP systolic 112–149; BP diastolic 51–63; PULSE 50–72; RESP 16–19; TEMP 36.2–36.9; O2SAT 87–93
[2019-10-09 06:59] LABS: Anion Gap 4 (5-15); BUN 26 mg/dL (7-18); BUN/Creat Ratio 28.3 RATIO (10-20); Calcium,Total 8.1 mg/dL (8.5-10.1); Chloride 92 mmol/L (98-107); Creatinine, Serum 0.92 mg/dL (0.55-1.02); EST Glomerular Filtration Rate 65 mL/min (>60); Est Glom Filt Rate - Afr Amer 79 mL/min (>60); Estimated Creatinine Clearance 49.76 ml/min; Glucose 83 mg/dL (74-106); Potassium 2.9 mmol/L (3.5-5.1); Sodium Level 138 mmol/L (136-145)
[2019-10-09] MEDS: Ipratropium/Albuterol Sulfate 3 ML AMPUL.NEB INHALATION (07:02)
[2019-10-09] MEDS: predniSONE 20 MG Tablet 40 MG PO (08:36)
[2019-10-09] MEDS: Aspirin 81 MG TAB.CHEW PO (08:36)
[2019-10-09] MEDS: hydroCHLOROthiazide 25 MG Tablet PO (08:37)
[2019-10-09] MEDS: Famotidine 20 MG Tablet PO (08:37)
[2019-10-09] MEDS: Lisinopril 20 MG Tablet PO (08:37)
[2019-10-09] MEDS: Potassium Chloride 10mEq/100mL 10 MEQ/100 ML IV.SOLN. 100 MEQ IV BOLUS (10:31)
[2019-10-09] MEDS: 0.9% Saline Lock 10 ML Syringe IV (10:32)
--- NOTE | 2019-10-09 11:06 | PCM.DC ---
- Discharge Diagnoses Current Active Problems: Current Active and Chronic Problems (Last Updated 04/07/18 @ 11:32 by Jaylin Montes) Acute respiratory failure with hypoxia and hypercapnia (Acute) Asthma exacerbation in COPD (Chronic) Acute bronchospasm (Acute) Recurrent right pleural effusion (Acute) Right heart failure (Acute) Hypertensive urgency (Acute) Acute exacerbation of CHF (congestive heart failure) (Acute) COPD with acute exacerbation (Acute) Tobacco use (Chronic) Morbid obesity (Chronic) Pneumonia (Acute) Callus of foot (Chronic) Pain in toe (Chronic) Edema of leg (Acute) You will use the following diet at home:: Calorie/Carbohydrate Controlled (specify 1200, 1400, etc) - 1600, Cardiac Your food should be the consistency of: Regular Your liquids should be the consistency of: Regular/Thin Discharge Activity: Return to Normal Activity Call your doctor if you observe: Fever of 101 or Higher, Shortness of breath, Dizziness, Fainting spells, Swelling in the ankles, Chest pain, Increased palpitations (irregular heartbeat) Additional Instructions: Follow-up with your PCP in 3-5 days and have a BMP obtained to evaluate your kidney function. Also start your lasix on SaturdayOctober 10. Allergies/Adverse Reactions: Allergies No Known Allergies Allergy (Verified 10/02/19 17:14) Medications to take at Discharge Aspirin [Aspirin, Baby] 81 mg PO DAILY@0800 #30 tab.chew 10/09/19 Atorvastatin Calcium [Lipitor] 80 mg PO QHS #30 tab 10/09/19 Carvedilol [Coreg (Beta Mario)] 12.5 mg PO BID #60 tab 10/09/19 Furosemide [Lasix] 40 mg PO DAILY #30 tab 10/09/19 Hydrochlorothiazide [Hctz] 25 mg PO DAILY #30 tab 10/09/19 Lisinopril [Zestril] 20 mg PO DAILY #30 tab 10/09/19 predniSONE tablet 40 mg PO DAILY@0800 #10 tab 10/09/19 The following prescriptions were given: Aspirin [Aspirin, Baby] 81 mg PO DAILY@0800 #30 tab.chew Transmission Status: Pending to [facility] Carvedilol [Coreg (Beta Mario)] 12.5 mg PO BID #60 tab Transmission Status: Pending to [facility] Hydrochlorothiazide [Hctz] 25 mg PO DAILY #30 tab Transmission Status: Pending to [facility] Furosemide [Lasix] 40 mg PO DAILY #30 tab Transmission Status: Pending to [facility] Atorvastatin Calcium [Lipitor] 80 mg PO QHS #30 tab Transmission Status: Pending to [facility] predniSONE tablet 40 mg PO DAILY@0800 #10 tab Transmission Status: Pending to [facility] Lisinopril [Zestril] 20 mg PO DAILY #30 tab Transmission Status: Pending to [facility] Primary Care Physician: Damon Portillo MD [Primary Care Provider] - Please follow up with your Primary Care Physician in: 3-5 days Test Results: Test results from this visit will be discussed in further detail at your follow-up appointment, if applicable.
--- NOTE | 2019-10-09 11:08 | PN_ITS ---
Patient Problems: Active and Suspected Problems (Last Updated 04/07/18 @ 11:32 by Jaylin Montes) Acute respiratory failure with hypoxia and hypercapnia (Acute) Acute bronchospasm (Acute) Recurrent right pleural effusion (Acute) Right heart failure (Acute) Hypertensive urgency (Acute) Acute exacerbation of CHF (congestive heart failure) (Acute) COPD with acute exacerbation (Acute) Pneumonia (Acute) Edema of leg (Acute) Subjective: Patient feels subjectively improved compared to yesterday. Patient does state that she did not sleep well overnight secondary to peeing all night. Patient feels that she is strong enough to go home. Objective: Ectopy much improved on telemetry. - Physical Exam Vitals/I&O's: Vital Signs Temp Pulse Resp BP Pulse Ox 36.8 C 52 L 18 112/63 92 10/09/19 08:30 10/09/19 08:30 10/09/19 08:30 10/09/19 08:30 10/09/19 08:30 Oxygen Flow Rate (L/min) 4 Oxygen Delivery Method Nasal Cannula Weight: 104.2 kg Body Mass Index (BMI) 43.9 Intake and Output for Last 24 Hours 10/07/19 10/08/19 10/09/19 23:59 23:59 23:59 Intake Total 1640 / 1840 1240 / 1240 0 / 0 Output Total 4425 / 5775 6500 / 6500 700 / 700 Balance -2785 / -3935 -5260 / -5260 -700 / -700 General: Alert, Oriented x3, Cooperative, No apparent distress, - - No conversational dyspnea. Morbidly obese. HEENT: Atraumatic, PERRLA, EOMI, Normocephalic, - - No scleral icterus or injection noted Oral: Moist Mucosa, No Gingival or Mucosal Lesions/ Ulcerations Neck: Supple, No Nodes, Trachea Midline, JVD, Right Lungs: No rhonchi, No wheeze, No rales, Diminished, - - Symmetric expansion. Cardiovascular: Regular rate, Regular Rhythm, Normal S1, Normal S2, No murmurs, No rub noted, No Gallop Abdomen: Bowel Sounds Present, Soft, Non Tender, Non-Distended, Obese Extremities: No clubbing, No cyanosis, Edema - Improved Skin: No rashes, No breakdown Musculoskeletal: No Tenderness to Palpation of Joints or Extremities Lymphatic: No Cervical, Supraclavicular, or Inguinal Adenopathy Neurological: Cranial nerves II-XII grossly intact, Neuro grossly intact, Motor Exam 5/5 strength throughout Psych/Mental Status: Alert and oriented to time, place, person, mood and affect Microbiology Past 72 Hours 10/02/19 17:55 Blood Culture (Wb) - Right Hand Blood Culture - Final No growth in 5 days. 10/02/19 17:25 Blood Culture (Wb) - Left Hand Blood Culture - Final No growth in 5 days. Laboratory Results 10/08/19 06:16: Magnesium 2.4 10/09/19 06:28: Sodium 138, Potassium 2.9 L, Chloride 92 L, Carbon Dioxide 42.0 H, Anion Gap 4 L, BUN 26 H, Creatinine 0.92, Estim Creat Clear Calc 49.76, Est GFR (MDRD) Af Amer 79, Est GFR (MDRD) Non-Af 65, BUN/Creatinine Ratio 28.3 H, Glucose 83, Calcium 8.1 L Current Medications Acetaminophen (Tylenol) 650 mg PO Q6H PRN PRN PRN Reason: Pain Score 1-10/Temp > 100.7 F Al Hydroxide/Mg Hydroxide (Mylanta Ii) 30 ml PO Q6H PRN PRN PRN Reason: Gastric Burning Albuterol Sulfate (Ventolin Aerosols) 2.5 mg INHALATION Q2H PRN PRN PRN Reason: Dyspnea, wheezing Albuterol/Ipratropium (Duoneb) 3 ml INHALATION Q4HWA.RT [facility] Last Admin: 10/09/19 07:02 Dose: 3 ml Documented by: Alprazolam (Xanax) 0.25 mg PO QHS PRN PRN PRN Reason: ANXIETY Last Admin: 10/05/19 22:20 Dose: 0.25 mg Documented by: Aspirin (Aspirin, Baby) 81 mg PO DAILY@0800 [facility] Last Admin: 10/09/19 08:36 Dose: 81 mg Documented by: Atorvastatin Calcium (Lipitor) 80 mg PO QHS [facility] Last Admin: 10/08/19 20:38 Dose: 80 mg Documented by: Carvedilol (Coreg) 12.5 mg PO BID [facility] Last Admin: 10/09/19 08:35 Dose: Not Given Documented by: Enoxaparin Sodium (Lovenox) 40 mg SC DAILY [facility] Last Admin: 10/08/19 09:05 Dose: 40 mg Documented by: Famotidine (Pepcid) 20 mg PO BID [facility] Last Admin: 10/09/19 08:37 Dose: 20 mg Documented by: Guaifenesin (Robitussin) 10 ml PO Q4H PRN PRN PRN Reason: COUGH Last Admin: 10/06/19 02:49 Dose: 10 ml Documented by: Hydralazine HCl (Apresoline Iv) 10 mg IV Q4H PRN PRN PRN Reason: SBP > 160 Last Admin: 10/07/19 21:19 Dose: 10 mg Documented by: Hydrochlorothiazide (Hctz) 25 mg PO DAILY [facility] Last Admin: 10/09/19 08:37 Dose: 25 mg Documented by: Sodium Chloride () 250 mls @ 15 mls/hr IV .[id number] PRN PRN Reason: Saline Flush Last Admin: 10/09/19 10:31 Dose: 15 mls/hr Documented by: Sodium Chloride () 250 mls @ 15 mls/hr IV .[id number] PRN PRN Reason: Additional IVPB Infusion Potassium Chloride () 10 meq in 100 mls @ 100 mls/hr IV BOLUS Q1H [facility] Stop: 10/09/19 13:59 Last Admin: 10/09/19 10:31 Dose: 100 mls/hr Documented by: Lisinopril (Zestril) 20 mg PO DAILY [facility] Last Admin: 10/09/19 08:37 Dose: 20 mg Documented by: Magnesium Hydroxide (Milk Of Magnesia) 30 ml PO DAILY PRN PRN PRN Reason: Constipation Melatonin (Melatonin) 3 mg PO QHS PRN PRN PRN Reason: INSOMNIA Last Admin: 10/05/19 21:52 Dose: 3 mg Documented by: Nicotine (Nicoderm Cq (Pbkc)) 21 mg TRANSDERM. DAILY [facility] Last Admin: 10/09/19 08:37 Dose: 21 mg Documented by: Nitroglycerin (Nitrostat) 0.4 mg SUBLINGUAL Q5M PRN PRN Reason: CARDIAC/CHEST PAIN Ondansetron HCl (Zofran) 4 mg IV Q8H PRN PRN PRN Reason: NAUSEA/VOMITING Prednisone () 40 mg PO DAILY@0800 [facility] Stop: 10/10/19 08:01 Last Admin: 10/09/19 08:36 Dose: 40 mg Documented by: Prochlorperazine Edisylate (Compazine Iv) 5 mg IV Q4H PRN PRN PRN Reason: Breakthrough Nausea/Vomiting Psyllium Hydrophilic Mucilloid (Metamucil) 1 packet PO DAILY PRN PRN PRN Reason: Constipation Senna/Docusate Sodium (Senokot-S, Marianne-Colace) 2 tablet PO BID PRN PRN Reason: Constipation Sodium Chloride () 10 - 40 ml IV UD PRN PRN Reason: SALINE FLUSH Last Admin: 10/09/19 10:32 Dose: 10 ml Documented by: Throat Lozenges (Cepacol Sore Throat Lozenge) 1 lozenge MUCOUS MEM Q2H PRN PRN PRN Reason: SORE THROAT Medical Necessity - Tobacco Use Smoking Status: Heavy Smoker (>10/day) Tobacco Use: Cigarettes Assessment/Plan All Active Problems (Last Updated 04/07/18 @ 11:32 by Jaylin Montes) Acute respiratory failure with hypoxia and hypercapnia (Acute) Acute bronchospasm (Acute) Recurrent right pleural effusion (Acute) Right heart failure (Acute) Hypertensive urgency (Acute) Acute exacerbation of CHF (congestive heart failure) (Acute) COPD with acute exacerbation (Acute) Pneumonia (Acute) Edema of leg (Acute) Impacted cerumen, right ear (Acute) Reactive airway disease (Acute) Bronchitis (Acute) RECOMMENDATIONS: 1. Outpatient evaluation for obstructive sleep apnea 2. Continue scheduled bronchodilator therapy. 3. Transition to p.o. steroids and complete 5-day burst 4. Increase activity as tolerated 5. Initiate p.o. Lasix therapy 24 to 48 hours after discharge 6. Continue nicotine replacement therapy. 7. Okay to discharge once able to ambulate with acceptable saturations on 6 L or less 8. Encourage a low-salt diet IMPRESSIONS: 1. Acute combined respiratory failure Patient appears to be responding well to diuretic therapy. Clinical suspicion for hypertensive urgency with a component of CHF with bilateral pleural effusions noted on imaging. Patient continues to have good diuresis and renal function improved after 16 L of diuresis. This would be suggestive of im proved Starling forces from volume optimization. Continue with diuresis as tolerated. We transitioned patient to prednisone to complete a 5-day burst. Doubt steroids leading to most of improvement. Patient would benefit from outpatient PFT for quantification clarification of lung function. Patient would benefit from further diuresis. Unclear if patient will be able to come off of supplemental oxygen. Patient can follow-up in our office in 2 weeks to meet with nurse practitioner. Okay to discharge if able to tolerate ambulation with 6 L or less nasal cannula oxygen. 2. Suspected COPD with exacerbation/history of nicotine dependency As noted above, plan to continue current supportive measures. Smoking cessation counseling was provided. Ideally, the patient should follow-up in the pulmonary medicine clinic after discharge so that baseline pulmonary function studies can be obtained. Based on the results of testing, the patient may be a candidate for for the initiation of a maintenance inhaler regimen to assist with alleviating her chronic shortness of breath symptoms. Nicotine replacement therapy will be utilized while the patient is admitted to the hospital. 3. Hypertensive urgency I do suspect that the patient's elevated blood pressures noted on presentation are likely contributing to her presenting symptoms. Agree with aggressive blood pressure control as ordered. 4. Morbid obesity/suspected sleep disordered breathing Complicates care, management, recovery and prognosis. As noted above, I would recommend outpatient pulmonary follow-up within 2 weeks of discharge from the hospital. Patient should continue nocturnal BiPAP as tolerated. Patient would benefit from outpatient PSG. Inpatient E&M: [id number] [facility] Hosp L2
--- NOTE | 2019-10-09 11:10 | PCM.DC.SUM ---
Discharge Date and Diagnosis - Problem List Patient Problems: Active and Suspected Problems (Last Updated 04/07/18 @ 11:32 by Jaylin Montes) Acute respiratory failure with hypoxia and hypercapnia (Acute) Acute bronchospasm (Acute) Recurrent right pleural effusion (Acute) Right heart failure (Acute) Hypertensive urgency (Acute) Acute exacerbation of CHF (congestive heart failure) (Acute) COPD with acute exacerbation (Acute) Pneumonia (Acute) Edema of leg (Acute) Date of Admission: 10/02/19 Date of Discharge: 10/09/19 - Primary Discharge Diagnosis Acute Problems: Active Problems (Last Updated 04/07/18 @ 11:32 by Jaylin Montes) Acute respiratory failure with hypoxia and hypercapnia (Acute) Acute bronchospasm (Acute) Recurrent right pleural effusion (Acute) Right heart failure (Acute) Hypertensive urgency (Acute) Acute exacerbation of CHF (congestive heart failure) (Acute) COPD with acute exacerbation (Acute) Pneumonia (Acute) Edema of leg (Acute) - Secondary Discharge Diagnosis Chronic Problems: Chronic Problems (Last Updated 04/07/18 @ 11:32 by Jaylin Montes) Asthma exacerbation in COPD (Chronic) Tobacco use (Chronic) Morbid obesity (Chronic) Callus of foot (Chronic) Pain in toe (Chronic) Hospital Course and Treatment Imaging Results: Clinical Impression(s) from Imaging Studies Chest X-Ray 10/02/19 18:26 IMPRESSION: Probable mild pulmonary interstitial edema with small right pleural effusion and right lower lobe atelectasis. Cannot exclude inflammatory disease Electronically Signed: Smith Young MD at 18:54 EDT , Service support , Chest CTA 10/03/19 01:10 IMPRESSION: No demonstrated pulmonary embolism or arterial dissection. Small bilateral pleural effusions larger on the right side. Electronically Signed: Jose Muñiz at 3:19 EDT Tel , Service support , Echo: Interpretation Summary The estimated ejection fraction is 55 %. No evidence for diastolic dysfunction. The study was technically difficult. Contrast injection was performed. Consults: Make Up Artist Operations: None Procedures: 2-D Echocardiogram Summary of Care Provided: Per HPI: The patient is a 64 y/o F w/ PMHx: Morbidly obese, Hx prior collapsed lung, Heavy tobacco use with suspected COPD who presents to the [facility] ED on 10/02/19 with no evaluation per physician in nearly 15 years with history of ongoing worsening dyspnea over the last year, more so with exertion with occasional wheezing however over the last several weeks she is progressively been worsening per her report with significant dyspnea this week over the last 2 to 3 days with nonproductive cough, wheezing, increased bilateral lower extremity edema, subjective weight gain and orthopnea brought in by family secondary to her worsening status. Work-up in the ED included T 98.7, heart rate 114, BP initially 211/125, respiratory rate 27, 97% on 6 L nasal cannula, CBC with WBC 8.5, hemoglobin 14.4, platelet 228 without market shift, unremarkable coags, ABG with pH 7.31, bicarb 36, O2 saturation 94, PCO2 71.5, PO2 81, CMP with chloride 110,, oxide 34, glucose 124, lactic acid 1.0, alk phos 33, troponin 0 0.015, BNP 237, urinalysis with elevated specific gravity 1.025, protein 100, ketones 5, occult blood 25, urobilinogen 8, leukocyte esterase 25, no obvious evidence UTI, pending COVID, blood culture x2 pending per ED, urine culture pending per ED, chest x-ray with probable mild pulmonary interstitial edema with small right pleural effusion and right lower lobe atelectasis. In the ED patient administered Solu-Medrol, Lasix 40 mg IV x1, Rocephin, azithromycin, DuoNeb and albuterol therapies as well as normal saline. Hospital Course: 1. Acute hypoxic and hypercapnic respiratory failure secondary to COPD exacerbation and possible CHF bilateral pleural effusions/tobacco abuse/morbid obesity/hypertensive [id number] female who presented to the hospital with no prior medical history other than being morbidly obese presented with shortness of breath. She was initially tachycardic and found to be hypervolemic as well. She was started on both steroids for her COPD exacerbation as well as Lasix for diuresis. Her echo did not show any significant signs of heart failure with an EF of 55% and no diastolic dysfunction. She was diuresed about 17 L during her hospitalization without any significant issue with her creatinine. Her bicarb did rise to 44 and therefore her Lasix were discontinued the day prior to discharge. I did express to her that she will need to restart her Lasix on Saturday of this week and that she will need to follow-up with her primary care physician in 3 to 5 days for repeat blood draw to evaluate her renal function because she did not come in with any medications and her systolic was greater than 200, which is likely the reason why I think she went into, she was started on lisinopril, Lasix, hydrochlorothiazide, Coreg, aspirin, Lipitor. She will also complete a prednisone taper. Also she was needing BiPAP at night however anxiety given the mask was making it hard for her to keep it on therefore she will also need to follow-up with pulmonology in 2 to 4 weeks for evaluation and outpatient PFTs and a possible sleep study to evaluate for CPAP, on the day of discharge she did have an ambulatory pulse ox which demonstrated need of at least 6 L with ambulation and maintain her oxygen sats. I did discuss with her the need for weight loss and how this could decrease the amount of medications she ultimately needed. I did discuss with her the plan for discharge today and she expressed understanding of the risks and benefits of going home. Patient Problems: Active and Suspected Problems (Last Updated 04/07/18 @ 11:32 by Jaylin Montes) Acute respiratory failure with hypoxia and hypercapnia (Acute) Acute bronchospasm (Acute) Recurrent right pleural effusion (Acute) Right heart failure (Acute) Hypertensive urgency (Acute) Acute exacerbation of CHF (congestive heart failure) (Acute) COPD with acute exacerbation (Acute) Pneumonia (Acute) Edema of leg (Acute) - Physical Exam Vitals/I&O's: Vital Signs Temp Pulse Resp BP Pulse Ox 98.2 F 52 L 18 112/63 92 10/09/19 08:30 10/09/19 08:30 10/09/19 08:30 10/09/19 08:30 10/09/19 08:30 Oxygen Flow Rate (L/min) 4 Oxygen Delivery Method Nasal Cannula Weight: 229 lb 11.547 oz Body Mass Index (BMI) 43.9 Intake and Output for Last 24 Hours 10/07/19 10/08/19 10/09/19 23:59 23:59 23:59 Intake Total 1640 / 1840 1240 / 1240 0 / 0 Output Total 4425 / 5775 6500 / 6500 700 / 700 Balance -2785 / -3935 -5260 / -5260 -700 / -700 General: Alert, Oriented x3, Cooperative, No apparent distress HEENT: Atraumatic, PERRLA, EOMI, Normocephalic Oral: Moist Mucosa Neck: Supple, No JVD Lungs: Diminished, no rhonchi, no wheezing, no rales Cardiovascular: Regular rate, Regular Rhythm, Normal S1, Normal S2, No murmurs Abdomen: Soft, Non Tender, Non-Distended, No Hepato-splenomegaly Extremities: Capillary Refill Less than 3 Seconds, Edema 1+ Skin: No rashes, No breakdown Neurological: Neuro grossly intact, Sensory exam intact to light touch and pain Psych/Mental Status: Normal Affect, Appropriate Microbiology Past 72 Hours 10/02/19 17:55 Blood Culture (Wb) - Right Hand Blood Culture - Final No growth in 5 days. 10/02/19 17:25 Blood Culture (Wb) - Left Hand Blood Culture - Final No growth in 5 days. Laboratory Results 10/08/19 06:16: Magnesium 2.4 10/09/19 06:28: Sodium 138, Potassium 2.9 L, Chloride 92 L, Carbon Dioxide 42.0 H, Anion Gap 4 L, BUN 26 H, Creatinine 0.92, Estim Creat Clear Calc 49.76, Est GFR (MDRD) Af Amer 79, Est GFR (MDRD) Non-Af 65, BUN/Creatinine Ratio 28.3 H, Glucose 83, Calcium 8.1 L Current Medications Acetaminophen (Tylenol) 650 mg PO Q6H PRN PRN PRN Reason: Pain Score 1-10/Temp > 100.7 F Al Hydroxide/Mg Hydroxide (Mylanta Ii) 30 ml PO Q6H PRN PRN PRN Reason: Gastric Burning Albuterol Sulfate (Ventolin Aerosols) 2.5 mg INHALATION Q2H PRN PRN PRN Reason: Dyspnea, wheezing Albuterol/Ipratropium (Duoneb) 3 ml INHALATION Q4HWA.RT SHAHLA Last Admin: 10/09/19 07:02 Dose: 3 ml Documented by: Alprazolam (Xanax) 0.25 mg PO QHS PRN PRN PRN Reason: ANXIETY Last Admin: 10/05/19 22:20 Dose: 0.25 mg Documented by: Aspirin (Aspirin, Baby) 81 mg PO DAILY@0800 [facility] Last Admin: 10/09/19 08:36 Dose: 81 mg Documented by: Atorvastatin Calcium (Lipitor) 80 mg PO QHS [facility] Last Admin: 10/08/19 20:38 Dose: 80 mg Documented by: Carvedilol (Coreg) 12.5 mg PO BID [facility] Last Admin: 10/09/19 08:35 Dose: Not Given Documented by: Enoxaparin Sodium (Lovenox) 40 mg SC DAILY [facility] Last Admin: 10/08/19 09:05 Dose: 40 mg Documented by: Famotidine (Pepcid) 20 mg PO BID [facility] Last Admin: 10/09/19 08:37 Dose: 20 mg Documented by: Guaifenesin (Robitussin) 10 ml PO Q4H PRN PRN PRN Reason: COUGH Last Admin: 10/06/19 02:49 Dose: 10 ml Documented by: Hydralazine HCl (Apresoline Iv) 10 mg IV Q4H PRN PRN PRN Reason: SBP > 160 Last Admin: 10/07/19 21:19 Dose: 10 mg Documented by: Hydrochlorothiazide (Hctz) 25 mg PO DAILY [facility] Last Admin: 10/09/19 08:37 Dose: 25 mg Documented by: Sodium Chloride () 250 mls @ 15 mls/hr IV .[id number] PRN PRN Reason: Saline Flush Last Admin: 10/09/19 10:31 Dose: 15 mls/hr Documented by: Sodium Chloride () 250 mls @ 15 mls/hr IV .[id number] PRN PRN Reason: Additional IVPB Infusion Potassium Chloride () 10 meq in 100 mls @ 100 mls/hr IV BOLUS Q1H [facility] Stop: 10/09/19 13:59 Last Admin: 10/09/19 10:31 Dose: 100 mls/hr Documented by: Lisinopril (Zestril) 20 mg PO DAILY [facility] Last Admin: 10/09/19 08:37 Dose: 20 mg Documented by: Magnesium Hydroxide (Milk Of Magnesia) 30 ml PO DAILY PRN PRN PRN Reason: Constipation Melatonin (Melatonin) 3 mg PO QHS PRN PRN PRN Reason: INSOMNIA Last Admin: 10/05/19 21:52 Dose: 3 mg Documented by: Nicotine (Nicoderm Cq (Pbkc)) 21 mg TRANSDERM. DAILY [facility] Last Admin: 10/09/19 08:37 Dose: 21 mg Documented by: Nitroglycerin (Nitrostat) 0.4 mg SUBLINGUAL Q5M PRN PRN Reason: CARDIAC/CHEST PAIN Ondansetron HCl (Zofran) 4 mg IV Q8H PRN PRN PRN Reason: NAUSEA/VOMITING Prednisone () 40 mg PO DAILY@0800 [facility] Stop: 10/10/19 08:01 Last Admin: 10/09/19 08:36 Dose: 40 mg Documented by: Prochlorperazine Edisylate (Compazine Iv) 5 mg IV Q4H PRN PRN PRN Reason: Breakthrough Nausea/Vomiting Psyllium Hydrophilic Mucilloid (Metamucil) 1 packet PO DAILY PRN PRN PRN Reason: Constipation Senna/Docusate Sodium (Senokot-S, Marianne-Colace) 2 tablet PO BID PRN PRN Reason: Constipation Sodium Chloride () 10 - 40 ml IV UD PRN PRN Reason: SALINE FLUSH Last Admin: 10/09/19 10:32 Dose: 10 ml Documented by: Throat Lozenges (Cepacol Sore Throat Lozenge) 1 lozenge MUCOUS MEM Q2H PRN PRN PRN Reason: SORE THROAT Discharge Activity: Return to Normal Activity Call your doctor if you observe: Fever of 101 or Higher, Shortness of breath, Dizziness, Fainting spells, Swelling in the ankles, Chest pain, Increased palpitations (irregular heartbeat) Home Medications: Medications to take at Discharge Aspirin [Aspirin, Baby] 81 mg PO DAILY@0800 #30 tab.chew 10/09/19 Atorvastatin Calcium [Lipitor] 80 mg PO QHS #30 tab 10/09/19 Carvedilol [Coreg (Beta Mario)] 12.5 mg PO BID #60 tab 10/09/19 Furosemide [Lasix] 40 mg PO DAILY #30 tab 10/09/19 Hydrochlorothiazide [Hctz] 25 mg PO DAILY #30 tab 10/09/19 Lisinopril [Zestril] 20 mg PO DAILY #30 tab 10/09/19 predniSONE tablet 40 mg PO DAILY@0800 #10 tab 10/09/19 Following Prescriptions Were Given to Patient: Aspirin [Aspirin, Baby] 81 mg PO DAILY@0800 #30 tab.chew Transmission Status: Received by [facility] Carvedilol [Coreg (Beta Mario)] 12.5 mg PO BID #60 tab Transmission Status: Received by [facility] Hydrochlorothiazide [Hctz] 25 mg PO DAILY #30 tab Transmission Status: Received by [facility] Furosemide [Lasix] 40 mg PO DAILY #30 tab Transmission Status: Received by [facility] Atorvastatin Calcium [Lipitor] 80 mg PO QHS #30 tab Transmission Status: Received by [facility] predniSONE tablet 40 mg PO DAILY@0800 #10 tab Transmission Status: Received by [facility] Lisinopril [Zestril] 20 mg PO DAILY #30 tab Transmission Status: Received by [facility] Primary Care Physician: Damon Portillo MD [Primary Care Provider] - Please follow up with your Primary Care Physician in: 3-5 days Disposition: Home Minutes spent on discharge:: 35 Patient Condition:: Stable Medical Necessity - Tobacco Use Smoking Status: Heavy Smoker (>10/day) Tobacco Use: Cigarettes Meaningful Use Info Meaningful Use Diagnoses (Choose all that apply): None applicable Inpatient E&M: 46019 Disch Hosp
[2019-10-09] MEDS: Potassium Chloride 10mEq/100mL 10 MEQ/100 ML IV.SOLN. 90 MEQ IV BOLUS ×3 (11:42→14:29)
--- NOTE | 2019-10-09 14:29 | CASEMGMT ---
Pt does qualify for home oxygen at this time. Pt will need 4liters at rest and 6 liters w/ exertion at home. Referral faxed to [facility] at this time as pt stated no preference. Call to Laurence at [facility] to update on referral and pt discharge today, voices understanding. Therapy states no need for any further therapy at this time. Pt was up walking in halls independently. Pt voices no further concerns/needs at this time. SStnupur CLAY CM
== END 2019-10-09 17:32 | disposition home or self-care (01) | DRG 190 ==
LOC: ED 19:13 → ICU 19:44 → PCU 10-03 16:40
PROVIDERS: Admitting Provider Family Medicine; Emergency Provider Emergency Medicine; PCP Family Medicine; Visit Provider Family Medicine
DX: J44.1 Chronic obstructive pulmonary disease with (acute) exacerbation (principal); J96.01 Acute respiratory failure with hypoxia; J18.9 Pneumonia, unspecified organism; I50.41 Acute combined systolic (congestive) and diastolic (congestive) heart failure; J96.02 Acute respiratory failure with hypercapnia; J90 Pleural effusion, not elsewhere classified; Z68.41 Body mass index [BMI] 40.0-44.9, adult; J44.0 Chronic obstructive pulmonary disease with (acute) lower respiratory infection; J98.01 Acute bronchospasm; I16.0 Hypertensive urgency; R60.0 Localized edema; E66.01 Morbid (severe) obesity due to excess calories; L84 Corns and callosities; I11.0 Hypertensive heart disease with heart failure; F41.8 Other specified anxiety disorders; F17.210 Nicotine dependence, cigarettes, uncomplicated; Z87.09 Personal history of other diseases of the respiratory system; Z79.899 Other long term (current) drug therapy
CPT/HCPCS: 36415; 36600; 71045; 71275; 80048; 80053; 80061; 81001; 82728; 82803; 83605; 83615; 83735; 83880; 84145; 84439; 84443; 84484; 85025; 85379; 85610; 85730; 86140; 87040; 87086; 87449; 87633; 87635; 87641; 93005; 93306; 94002; 94003; 94640; 94799; 97161; 97165; 97802; 99251; 99285; 99406; J7050; Q9957; Q9967; A4216; C8929; G0463; J0696; J1940; U0003

== ENCOUNTER → 2019-11-03 15:29 | Outpatient (CLI) | payer BC, MEDICARE, SELFPAY ==
[2019-10-02 23:05] VITALS: BMI 43.9
[2019-11-03 18:28] LABS: Anion Gap 6 (5-15); BUN 35 mg/dL (7-18); BUN/Creat Ratio 20.7 RATIO (10-20); Chloride 101 mmol/L (98-107); Creatinine, Serum 1.69 mg/dL (0.55-1.02); EST Glomerular Filtration Rate 32 mL/min (>60); Est Glom Filt Rate - Afr Amer 39 mL/min (>60); Glucose 137 mg/dL (74-106); Potassium 3.9 mmol/L (3.5-5.1); Sodium Level 141 mmol/L (136-145); Thyroid Stim Hormone (TSH) 2.23 uIU/mL (0.358-3.74)
[2019-11-03 18:32] LABS: Vitamin D,25 Hydroxy 21.8 ng/mL
[2019-11-03 18:45] LABS: BNP,B-Type NATRIURETIC PEPTIDE 47.7 pg/mL (0-100)
== END ==
PROVIDERS: PCP Family Medicine; Referring Provider Family Medicine; Visit Provider Family Medicine
DX: I50.9 Heart failure, unspecified (principal); M85.80 Other specified disorders of bone density and structure, unspecified site
CPT/HCPCS: 36415; 80048; 82306; 83880; 84443

== ENCOUNTER → 2020-01-18 10:45 | Outpatient (CLI) | payer BC, SELFPAY ==
[2019-11-04 10:18] VITALS: BMI 38.7
--- NOTE | 2020-01-19 12:34 | PFT ---
INTRODUCTION: The patient is a 64-year-old female that presents for pulmonary function studies secondary to a diagnosis of shortness of breath. Respiratory therapy reports good patient effort. Bronchodilators were used during testing. INTERPRETATION: Forced expiration spirometry demonstrates the presence of a moderately severe large airways obstructive ventilatory defect. There was no significant response to aerosolized bronchodilators. Spirograms are of good quality and do not plateau indicating slow emptying of the lungs. Body plethysmography was performed and reveals lung volumes to be within normal limits. Diffusing capacity by single breath CO is reduced at 46% of predicted. IMPRESSION: Irreversible moderately severe large airways obstructive ventilatory defect with symmetric reduction in diffusing capacity.
== END ==
PROVIDERS: PCP Family Medicine; Referring Provider Nurse Practitioner Acute Care; Visit Provider Nurse Practitioner Acute Care
DX: R06.02 Shortness of breath (principal)
CPT/HCPCS: 94060; 94726; 94729

== ENCOUNTER → 2020-01-19 13:41 | Outpatient (CLI) | payer BC, SELFPAY ==
[2019-11-04 10:18] VITALS: BMI 38.7
[2020-01-19 14:13] VITALS: PULSE 82; PULSE 89; PULSE 91; PULSE 92; PULSE 94; PULSE 96; PULSE 99; O2SAT 89; O2SAT 90; O2SAT 91; O2SAT 92; O2SAT 93
--- NOTE | 2020-01-20 13:32 | PCM.PSN.6M ---
PSN 6 Minute Walk Test - 6 Minute Walk Test 6 Minute Walk Test: 6 Minute Walk Test PSN:6-Minute Walk Test Start: 01/19/20 14:13 Freq: Status: Active Protocol: RESP.6MINW Document 01/19/20 14:13 TODD (Rec: 01/19/20 14:17 TODD [id number]) 6 Minute Walk Test Date Performed 01/19/20 Time Performed 13:45 Height 5 ft 2 in Weight: 507 lb 1.011 oz Weight in Pounds 507.[address]: Flora Osborne MEDICAL REIMBURSEMENT MANAGER Assistive device used: Cane Pre-test Oxygen Delivery Method Room Air Pulse Ox (%) 93 Pulse Rate (60-100 beats/min) 82 Dyspnea Tim Scale (0-10) 0 Exertion Tim Scale (6-20) 6 1st minute Oxygen Delivery Method Room Air Pulse Ox (%) 90 Pulse Rate (60-100 beats/min) 96 2nd minute Oxygen Delivery Method Room Air Pulse Ox (%) 91 Pulse Rate (60-100 beats/min) 89 3rd minute Oxygen Delivery Method Room Air Pulse Ox (%) 89 Pulse Rate (60-100 beats/min) 99 4th minute Oxygen Delivery Method Room Air Pulse Ox (%) 89 Pulse Rate (60-100 beats/min) 92 5th minute Oxygen Delivery Method Room Air Pulse Ox (%) 91 Pulse Rate (60-100 beats/min) 91 6th minute Oxygen Delivery Method Room Air Pulse Ox (%) 89 Pulse Rate (60-100 beats/min) 94 Dyspnea Tim Scale (0-10) 3 Exertion Tim Scale (6-20) 11 Post-test Oxygen Delivery Method Room Air Pulse Ox (%) 92 Pulse Rate (60-100 beats/min) 89 Full Laps Walked 14 Partial Lap, Number of Tiles Walked 20 Total Distance Walked (ft) 846 - Interpretation Interpretation: The patient ambulated 846 feet over the course of 6 minutes beginning on room air with the use of a cane. Pretesting oxygen saturation was noted to be 93% on room air. With ambulation, the breann oxygen saturation was 89%. This represents a significant exertional oxygen desaturation. - Recommendations Recommendations: There is no indication for the use of supplemental oxygen at this time. However, close interval follow-up is recommended, given the degree of oxygen desaturation noted during this study.
== END ==
PROVIDERS: PCP Family Medicine; Referring Provider Nurse Practitioner Acute Care; Visit Provider Nurse Practitioner Acute Care
DX: R06.02 Shortness of breath (principal)
CPT/HCPCS: 94618

== ENCOUNTER → 2020-01-26 11:00 | Outpatient (CLI) | payer BC, SELFPAY ==
[2019-11-04 10:18] VITALS: BMI 38.7
[2020-01-26 12:45] LABS: Anion Gap 7 (5-15); BUN 22 mg/dL (7-18); Calcium,Total 9.2 mg/dL (8.5-10.1); Chloride 109 mmol/L (98-107); EST Glomerular Filtration Rate 53 mL/min (>60); Est Glom Filt Rate - Afr Amer 64 mL/min (>60); Glucose 109 mg/dL (74-106); Potassium 3.8 mmol/L (3.5-5.1); Sodium Level 142 mmol/L (136-145)
== END ==
PROVIDERS: PCP Family Medicine; Referring Provider Family Medicine; Visit Provider Family Medicine
DX: I10 Essential (primary) hypertension (principal)
CPT/HCPCS: 36415; 80048

== ENCOUNTER → 2020-05-26 13:45 | Outpatient (CLI) | payer BC, SELFPAY ==
[2020-05-03 07:59] VITALS: BMI 43.3
[2020-05-26 13:45] VITALS: PULSE 83; PULSE 87; PULSE 90; PULSE 93; PULSE 94; PULSE 95; PULSE 96; PULSE 98; O2SAT 86; O2SAT 88; O2SAT 91; O2SAT 92; O2SAT 93
--- NOTE | 2020-05-26 14:23 | CPS ---
Pt was started on room air. 1 lpm was needed at 1 min and then pt was increased to 2 lpm 3 min into walk. Pt rested at minutes 2 and 4 for back pain and denied it was for S.O.B.
--- NOTE | 2020-05-27 10:24 | WT_ITS ---
PSN 6 Minute Walk Test - 6 Minute Walk Test 6 Minute Walk Test: 6 Minute Walk Test PSN:6-Minute Walk Test Start: 05/26/20 14:18 Freq: Status: Active Protocol: RESP.6MINW Document 05/26/20 13:[address] [facility] (Rec: 05/26/20 14:[address] [facility] [id number]) 6 Minute Walk Test Date Performed 05/26/20 Time Performed 13:45 Height 5 ft 3 in Weight: 237 lb Weight in Pounds 237.[address]: Dr Walsh Assistive device used: Cane Pre-test Oxygen Delivery Method Room Air Pulse Ox (%) 91 Pulse Rate (60-100 beats/min) 83 Dyspnea Tim Scale (0-10) 0 Exertion Tim Scale (6-20) 6 1st minute Oxygen Delivery Method Room Air Pulse Ox (%) 86 Pulse Rate (60-100 beats/min) 96 Dyspnea Tim Scale (0-10) 1 2nd minute Oxygen Flow Rate (L/min) (L/min) 1 Oxygen Delivery Method Nasal Cannula Pulse Ox (%) 93 Pulse Rate (60-100 beats/min) 90 3rd minute Oxygen Flow Rate (L/min) (L/min) 1 Oxygen Delivery Method Nasal Cannula Pulse Ox (%) 88 Pulse Rate (60-100 beats/min) 93 Dyspnea Tim Scale (0-10) 1 4th minute Oxygen Flow Rate (L/min) (L/min) 2 Oxygen Delivery Method Nasal Cannula Pulse Ox (%) 93 Pulse Rate (60-100 beats/min) 94 Dyspnea Tim Scale (0-10) 1 Number of Rests Taken 1 5th minute Oxygen Flow Rate (L/min) (L/min) 2 Oxygen Delivery Method Nasal Cannula Pulse Ox (%) 91 Pulse Rate (60-100 beats/min) 98 6th minute Oxygen Flow Rate (L/min) (L/min) 2 Oxygen Delivery Method Nasal Cannula Pulse Ox (%) 92 Pulse Rate (60-100 beats/min) 95 Dyspnea Tim Scale (0-10) 1 Exertion Tim Scale (6-20) 12 Post-test Oxygen Flow Rate (L/min) (L/min) 2 Oxygen Delivery Method Nasal Cannula Pulse Ox (%) 92 Pulse Rate (60-100 beats/min) 87 Full Laps Walked 6 Partial Lap, Number of Tiles Walked 34 Total Distance Walked (ft) 388 05/26/20 14:23 Cardiopulmonary Services by Beatriz Younger Pt was started on room air. 1 lpm was needed at 1 min and then pt was increased to 2 lpm 3 min into walk. Pt rested at minutes 2 and 4 for back pain and denied it was for S.O.B. Initialized on 05/26/20 14:23 - END OF NOTE - Interpretation Interpretation: The patient ambulated 388 feet over the course of 6 minutes beginning on room air with the use of a cane. Pretesting oxygen saturation was noted to be 91% on room air. With ambulation, the patient desaturated on several occasions, requiring the initiation and subsequent escalation of supplemental oxygen to 2 L/min with exertion to maintain appropriate saturations. - Recommendations Recommendations: 2 L/min of supplemental oxygen should be utilized with exertion.
== END ==
PROVIDERS: PCP Family Medicine; Referring Provider Internal Medicine Critical Care Medicine; Visit Provider Internal Medicine Critical Care Medicine
DX: J44.9 Chronic obstructive pulmonary disease, unspecified (principal)
CPT/HCPCS: 94618

== ENCOUNTER → 2020-08-26 07:21 | Outpatient (CLI) | payer BC, SELFPAY ==
[2020-08-19 14:17] VITALS: BMI 43.4
[2020-08-26 10:21] LABS: Hematocrit 43.7 % (37-47); Hemoglobin 13.8 g/dL (12.0-15.0); Mean Corp Hgb Conc 31.6 g/dL (32-36); Mean Corpuscular Hgb 29.7 pg (27.0-32.0); Mean Platelet Vol. 11.4 fl (6.2-12.0); Platelet Count 238 K/mm3 (150-450); RBC Distribution Width CV 14.1 % (11.6-14.6); RBC Distribution Width SD 48.7 fl (35.1-43.9); Red Blood Count 4.65 M/mm3 (4.2-5.4); White Blood Count 8.8 K/mm3 (4.4-11.0)
[2020-08-26 10:38] LABS: Vitamin D,25 Hydroxy 33.3 ng/mL
[2020-08-26 10:50] LABS: BNP,B-Type NATRIURETIC PEPTIDE 33.7 pg/mL (0-100)
[2020-08-26 10:53] LABS: AST(SGOT) 13 U/L (15-37); Alanine Aminotransfer ALT/SGPT 19 U/L (13-56); Albumin, Serum 3.5 g/dL (3.2-5.0); Alkaline Phosphatase 37 U/L (45-117); Anion Gap 7 (5-15); BUN 13 mg/dL (7-18); BUN/Creat Ratio 13.8 RATIO (10-20); Calcium,Total 8.9 mg/dL (8.5-10.1); Chloride 103 mmol/L (98-107); Cholesterol 149 mg/dL (200); Creatinine, Serum 0.94 mg/dL (0.55-1.02); EST Glomerular Filtration Rate 63 mL/min (>60); Est Glom Filt Rate - Afr Amer 76 mL/min (>60); Globulin 3.5 g/dL (2.2-4.2); Glucose 99 mg/dL (74-106); High Density Lipoprotein 54 mg/dL; Potassium 4.1 mmol/L (3.5-5.1); Sodium Level 140 mmol/L (136-145); Thyroid Stim Hormone (TSH) 3.41 uIU/mL (0.358-3.74); Triglycerides 71 mg/dL; Very Low Density Lipoprotein 14 mg/dL (5-40)
== END ==
PROVIDERS: PCP Family Medicine; Referring Provider Family Medicine; Visit Provider Family Medicine
DX: I50.9 Heart failure, unspecified (principal); M85.80 Other specified disorders of bone density and structure, unspecified site
CPT/HCPCS: 36415; 80053; 80061; 82306; 83880; 84443; 85027

== ENCOUNTER 2021-06-08 09:00 | Outpatient (CLI) | payer BC, MEDICARE, SELFPAY ==
[2021-06-08 10:29] LABS: ALB/GLOB Ratio 0.9 RATIO (0.9-2.4); AST(SGOT) 11 U/L (15-37); Alanine Aminotransfer ALT/SGPT 22 U/L (13-56); Albumin, Serum 3.4 g/dL (3.2-5.0); Alkaline Phosphatase 32 U/L (45-117); Anion Gap 2 (5-15); BUN 17 mg/dL (7-18); BUN/Creat Ratio 16.5 RATIO (10-20); Calcium,Total 8.4 mg/dL (8.5-10.1); Chloride 105 mmol/L (98-107); Cholesterol 149 mg/dL (200); Creatinine, Serum 1.03 mg/dL (0.55-1.02); EST Glomerular Filtration Rate 57 mL/min (>60); Est Glom Filt Rate - Afr Amer 69 mL/min (>60); Globulin 3.6 g/dL (2.2-4.2); Glucose 122 mg/dL (74-106); High Density Lipoprotein 51 mg/dL; Potassium 4.2 mmol/L (3.5-5.1); Sodium Level 138 mmol/L (136-145); Thyroid Stim Hormone (TSH) 3.19 uIU/mL (0.358-3.74); Triglycerides 97 mg/dL; Very Low Density Lipoprotein 19 mg/dL (5-40)
[2021-06-08 10:37] LABS: Vitamin D,25 Hydroxy 37.2 ng/mL
== END 2021-06-08 23:59 | disposition home or self-care (01) ==
LOC: MFPLAB 09:04
PROVIDERS: PCP Family Medicine; Referring Provider Family Medicine; Visit Provider Family Medicine
DX: I50.9 Heart failure, unspecified (principal); R73.01 Impaired fasting glucose; M85.80 Other specified disorders of bone density and structure, unspecified site
CPT/HCPCS: 36415; 80053; 80061; 82306; 84443

== ENCOUNTER 2021-06-16 16:43 | Outpatient (CLI) | payer BC, SELFPAY ==
--- NOTE | 2021-06-16 16:45 | CT_ITS ---
EXAM: CT CHEST, LUNG CANCER SCREENING WITHOUT INTRAVENOUS CONTRAST : 1955 CLINICAL INDICATION: current smoker > 40 pack years TECHNIQUE: Helically acquired images were obtained of the chest without intravenous contrast using low dose (LDCT) lung cancer screening protocol. This CT exam was performed using one or more of the following dose reduction techniques: automated exposure control, adjustment of the mA and/or kV according to patient size, and/or use of iterative reconstruction technique. This report was created using [employer] report generation technology. COMPARISON: 10/03/2019 FINDINGS: LUNGS AND PLEURAL SPACES: There is a very small area of groundglass opacity left upper lobe that measures 4 mm seen on series 2 image 50. Slime there is minimal scarring and atelectasis in the right middle lobe. No mass. No pleural effusion or thickening. No pneumothorax. HEART: Unremarkable. Heart size is normal. No pericardial effusion. No significant coronary artery calcifications. MEDIASTINUM: Unremarkable. No mediastinal or hilar adenopathy. Esophagus is unremarkable. No hiatal hernia. THYROID: Unremarkable. No thyroid lesions. BONES/JOINTS: Unremarkable. No suspicious lytic or blastic abnormality. VASCULATURE: Unremarkable. Thoracic aorta is non-dilated. LYMPH NODES: Unremarkable. No enlarged lymph nodes. OTHER FINDINGS: CT/Low Dose CT Lung Screening IMPRESSION: 1. Ill-defined area of groundglass opacity in left upper lobe. No other pulmonary nodules are identified. 2. Lung RADS category 3. Individualized dose optimization techniques were used for this CT. at 0940 Reported and signed by: Rambo Guevara MD Electronically Signed: Rambo Guevara MD at 9:39 EDT ,
== END 2021-06-16 23:59 | disposition home or self-care (01) ==
LOC: CT 16:44
PROVIDERS: PCP Family Medicine; Referring Provider Nurse Practitioner Acute Care; Visit Provider Nurse Practitioner Acute Care
DX: F17.210 Nicotine dependence, cigarettes, uncomplicated (principal)
CPT/HCPCS: 71271

== ENCOUNTER → 2021-10-16 | Outpatient (CLI) | payer BC, SELFPAY ==
[2021-10-16 16:06] LABS: Anion Gap 6 (5-15); BUN 16 mg/dL (7-18); BUN/Creat Ratio 15.5 RATIO (10-20); Calcium,Total 9.1 mg/dL (8.5-10.1); Chloride 102 mmol/L (98-107); Creatinine, Serum 1.03 mg/dL (0.55-1.02); EST Glomerular Filtration Rate 57 mL/min (>60); Est Glom Filt Rate - Afr Amer 69 mL/min (>60); Glucose 108 mg/dL (74-106); Potassium 4.1 mmol/L (3.5-5.1); Sodium Level 140 mmol/L (136-145)
[2021-10-16 16:12] LABS: BNP,B-Type NATRIURETIC PEPTIDE 32.9 pg/mL (0-100)
== END | disposition home or self-care (01) ==
LOC: MFPLAB 13:47
PROVIDERS: PCP Family Medicine; Referring Provider Family Medicine; Visit Provider Family Medicine
DX: N18.30 Chronic kidney disease, stage 3 unspecified (principal); I50.9 Heart failure, unspecified
CPT/HCPCS: 36415; 80048; 83880

== ENCOUNTER → 2022-08-16 | Outpatient (CLI) | payer BC, SELFPAY ==
--- NOTE | 2022-08-16 13:20 | CT_ITS ---
STUDY: LOW DOSE CT LUNG CANCER SCREENING REASON FOR EXAM: Female, 67 years old. Patient smokes half a pack per day for 53 years. RADIATION DOSAGE (If Supplied By Facility): CTDIvol = ( 3.18 ) mGy, DLP = ( 106.82 ) mGycm TECHNIQUE: No contrast was administered. Low dose technique was utilized (average mAS-38 and kVp 120). 1.25 mm axial source images with a slice interval of 1.25-mm were reconstructed in lung windows. 2.5 mm axial source images with a slice interval of 2.5-mm were reconstructed in lung windows. 5.0 mm axial source images with a slice interval of 5.0-mm were reconstructed in soft tissue windows. COMPARISON: Comparison is made with prior study dated June 16, 2021. NODULES: No suspicious nodules are seen. Emphysema: Hyperinflation. Emphysematous changes with centrilobular emphysematous changes in the upper lobes. Stable linear scarring in the anterior medial aspect of the right upper lobe as seen on axial image #90 and coronal image #101. Stable linear scarring in the anterior medial aspect of the right lower lobe. Endobronchial lesion: None Aorta: Atherosclerotic plaque formation of the aortic arch. CORONARY ARTERIES: Coronary artery calcification is seen. Heart: Unremarkable. Pulmonary artery: Unremarkable. Mediastinal nodes: Unremarkable Other chest and abdominal findings: CT/Low Dose CT Lung Screening IMPRESSION: Lung-RADS category 2 - Continue annual screening with LDCT in 12 months. IMPORTANT NOTES FOR USE: ACR Lung-RADS Version 1.1 Assessment Categories Release Date: 2018 Category: Coded 0-4 bases on nodule(s) with highest degree of suspicion. Negative screen is defined as categories 1 and 2; a positive screen is defined as categories 3 and 4. Category 3 and 4A nodules that are unchanged on interval CT should be coded as category 2, and individuals returned to screening in 12 months. Category 4X: Category 3 or 4 nodules with additional imaging findings that increase the suspicion of lung cancer, such as spiculation, GGN that doubles in size in 1 year, enlarged lymph notes, etc. Category Modifiers: S (significant finding unrelated to lung cancer) Electronically Signed: Jose R Hernandez MD at 15:22 EDT ,
== END | disposition home or self-care (01) ==
LOC: CT 13:08
PROVIDERS: PCP Family Medicine; Referring Provider Nurse Practitioner Acute Care; Visit Provider Nurse Practitioner Acute Care
DX: Z12.2 Encounter for screening for malignant neoplasm of respiratory organs (principal); F17.210 Nicotine dependence, cigarettes, uncomplicated
CPT/HCPCS: 71271

== ENCOUNTER → 2022-10-05 | Outpatient (CLI) | payer BC, SELFPAY ==
[2022-10-05 09:52] LABS: Hematocrit 41.2 % (37-47); Hemoglobin 12.6 g/dL (12.0-15.0); Mean Corp Hgb Conc 30.6 g/dL (32-36); Mean Corpuscular Volume 94.7 fL (81-99); Mean Platelet Vol. 11.1 fl (6.2-12.0); Platelet Count 235 K/mm3 (150-450); RBC Distribution Width CV 14.1 % (11.6-14.6); RBC Distribution Width SD 48.7 fl (35.1-43.9); Red Blood Count 4.35 M/mm3 (4.2-5.4); White Blood Count 9.3 K/mm3 (4.4-11.0)
[2022-10-05 10:08] LABS: BNP,B-Type NATRIURETIC PEPTIDE 25.6 pg/mL (0-100)
[2022-10-05 10:11] LABS: ALB/GLOB Ratio 0.8 RATIO (0.9-2.4); AST(SGOT) 14 U/L (15-37); Alanine Aminotransfer ALT/SGPT 20 U/L (13-56); Albumin, Serum 3.1 g/dL (3.2-5.0); Alkaline Phosphatase 33 U/L (45-117); Anion Gap 4 (5-15); BUN 15 mg/dL (7-18); BUN/Creat Ratio 16.2 RATIO (10-20); Chloride 104 mmol/L (98-107); Cholesterol 137 mg/dL (200); Creatinine, Serum 0.93 mg/dL (0.55-1.02); EST Glomerular Filtration Rate 64 mL/min (>60); Est Glom Filt Rate - Afr Amer 77 mL/min (>60); Globulin 3.8 g/dL (2.2-4.2); Glucose 121 mg/dL (74-106); High Density Lipoprotein 55 mg/dL; Potassium 3.9 mmol/L (3.5-5.1); Protein, Total 6.9 g/dL (6.4-8.2); Sodium Level 141 mmol/L (136-145); Triglycerides 98 mg/dL; Very Low Density Lipoprotein 20 mg/dL (5-40)
== END | disposition home or self-care (01) ==
LOC: MFPLAB 08:00
PROVIDERS: PCP Family Medicine; Visit Provider Family Medicine
DX: E78.00 Pure hypercholesterolemia, unspecified (principal); I50.9 Heart failure, unspecified
CPT/HCPCS: 36415; 80053; 80061; 83880; 85027

== ENCOUNTER → 2023-05-24 | Outpatient (CLI) | payer BC, SELFPAY ==
[2023-05-24 10:50] LABS: Vitamin D,25 Hydroxy 37.3 ng/mL
[2023-05-24 12:00] LABS: Anion Gap 5 (5-15); BUN 22 mg/dL (7-18); BUN/Creat Ratio 18.6 RATIO (10-20); Calcium,Total 9.8 mg/dL (8.5-10.1); Chloride 100 mmol/L (98-107); Creatinine, Serum 1.18 mg/dL (0.55-1.02); EST Glomerular Filtration Rate 48 mL/min (>60); Est Glom Filt Rate - Afr Amer 58 mL/min (>60); Glucose 106 mg/dL (74-106); Potassium 4.1 mmol/L (3.5-5.1); Sodium Level 139 mmol/L (136-145); Thyroid Stim Hormone (TSH) 3.83 uIU/mL (0.358-3.74)
== END | disposition home or self-care (01) ==
LOC: MTLAB 07:02
PROVIDERS: PCP Family Medicine; Referring Provider Family Medicine; Visit Provider Family Medicine
DX: M85.80 Other specified disorders of bone density and structure, unspecified site (principal); E55.9 Vitamin D deficiency, unspecified
CPT/HCPCS: 36415; 80048; 82306; 84443

== ENCOUNTER → 2023-10-25 | Outpatient (CLI) | payer BC, OTHER, SELFPAY ==
--- NOTE | 2023-10-25 14:27 | CT_ITS ---
STUDY: LOW DOSE CT LUNG CANCER SCREENING REASON FOR EXAM: Female, 68 years old. Smoker RADIATION DOSAGE (If Supplied By Facility): CTDIvol = ( 4.02 ) mGy, DLP = ( 137.43 ) mGycm TECHNIQUE: No contrast was administered. Low dose technique was utilized (average mAS-38 and kVp 120). 1.25 mm axial source images with a slice interval of 1.25-mm were reconstructed in lung windows. 2.5 mm axial source images with a slice interval of 2.5-mm were reconstructed in lung windows. 5.0 mm axial source images with a slice interval of 5.0-mm were reconstructed in soft tissue windows. COMPARISON: Comparison is made with prior study dated August 16, 2022. NODULES: No suspicious nodules are seen. Emphysema: Hyperinflation. Emphysematous changes with centrilobular emphysematous changes in the upper lobes. Stable linear scarring in the anterior medial aspect of the right upper lobe as well as the lingular segment of the left upper lobe. Atelectasis and volume loss in the posterior aspect of the lingular segment of the left upper lobe abutting the left major fissure. Endobronchial lesion: None Aorta: Atherosclerotic plaque formation of the aortic arch. CORONARY ARTERIES: Coronary artery calcification is seen. Heart: Remarkable Pulmonary artery: Remarkable Mediastinal nodes: Remarkable Other chest and abdominal findings: CT/Low Dose CT Lung Screening IMPRESSION: Lung-RADS category 2 - Continue annual screening with LDCT in 12 months. IMPORTANT NOTES FOR USE: ACR Lung-RADS Version 1.1 Assessment Categories Release Date: 2018 Category: Coded 0-4 bases on nodule(s) with highest degree of suspicion. Negative screen is defined as categories 1 and 2; a positive screen is defined as categories 3 and 4. Category 3 and 4A nodules that are unchanged on interval CT should be coded as category 2, and individuals returned to screening in 12 months. Category 4X: Category 3 or 4 nodules with additional imaging findings that increase the suspicion of lung cancer, such as spiculation, GGN that doubles in size in 1 year, enlarged lymph notes, etc. Category Modifiers: S (significant finding unrelated to lung cancer) Electronically Signed: Jose R Hernandez MD at 15:31 EDT ,
== END | disposition home or self-care (01) ==
LOC: CT 14:26
PROVIDERS: PCP Family Medicine; Referring Provider Nurse Practitioner Acute Care; Visit Provider Nurse Practitioner Acute Care
DX: Z12.2 Encounter for screening for malignant neoplasm of respiratory organs (principal); F17.210 Nicotine dependence, cigarettes, uncomplicated
CPT/HCPCS: 71271

== ENCOUNTER → 2024-12-16 | Outpatient (CLI) | payer MEDICARE, SELFPAY ==
--- NOTE | 2024-12-16 14:38 | CT_ITS ---
PROCEDURE: LOW DOSE CT LUNG SCREENING 12/16/2024 REASON FOR EXAM: SMOKER 2-1/2-3 packs per day smoker times 54 years TECHNIQUE: Procedure Code: [id number] Modality: CT Procedure: LOW DOSE CT LUNG SCREENING Coronal and Sagittal reconstruction series were provided. One or more dose reduction techniques were used (e.g., Automated exposure control, adjustment of the mA and/or kV according to patient size, use of iterative reconstruction technique). REFERENCE LINK: [facility] Lung-RADS RADIATION DOSE SUMMARY: CTDlvol: 3.18 mGy DLP: 98.47 mGycm COMPARISON: 2023, 2022 FINDINGS: PULMONARY NODULES: (Only nodules >3mm are reported) Stable underlying emphysema with bleb formation throughout both lung latif. Stable nonspecific pleural thickening in both hemithoraces. Stable subsegmental atelectasis in the lingula. No organized infiltrate, or effusion, no suspicious noncalcified mass or nodule. No significant interval change. Limited soft tissue windows do not show evidence of suspicious adenopathy. The thyroid gland is unremarkable. Peripheral calcifications in the thoracic aorta without aneurysm. There are calcified coronary vessels. Limited cuts through the upper abdomen do not show a suspicious abnormality. Bony structures show degenerative change CT/Low Dose CT Lung Screening IMPRESSION: Underlying emphysema with chronic interstitial changes, no superimposed acute p rocess, no new suspicious noncalcified mass or nodule. No interval change Coronary artery calcification (CAC) is is present Lung-RADS Category: 2 BENIGN (BASED ON IMAGING FEATURES OR INDOLENT BEHAVIOR). RECOMMEND 12-MONTH SCREENING LDCT. Other Significant Findings: Reading Location: [id number]
== END | disposition home or self-care (01) ==
LOC: CT 14:27
PROVIDERS: PCP Family Medicine; Referring Provider Nurse Practitioner Acute Care; Visit Provider Nurse Practitioner Acute Care
DX: F17.210 Nicotine dependence, cigarettes, uncomplicated (principal)
CPT/HCPCS: 71271